=== PATIENT | male | born 1945 | race Caucasian/White ===

== ENCOUNTER → 2020-07-03 | Outpatient (CLI) | payer MEDICARE | LOC: M.WC 07-01 09:00 | PROVIDERS: ATTEND Emergency Medicine Undersea and Hyperbaric Medicine | DX: I87.332 Chronic venous hypertension (idiopathic) with ulcer and inflammation of left lower extremity (principal); L97.822 Non-pressure chronic ulcer of other part of left lower leg with fat layer exposed; I87.311 Chronic venous hypertension (idiopathic) with ulcer of right lower extremity; L97.812 Non-pressure chronic ulcer of other part of right lower leg with fat layer exposed; I89.0 Lymphedema, not elsewhere classified; H26.9 Unspecified cataract; J45.909 Unspecified asthma, uncomplicated ==

== ENCOUNTER → 2020-07-10 | Outpatient (CLI) | payer MEDICARE | LOC: M.WC 10:00 | PROVIDERS: ATTEND Family Medicine | DX: I87.332 Chronic venous hypertension (idiopathic) with ulcer and inflammation of left lower extremity (principal); L97.822 Non-pressure chronic ulcer of other part of left lower leg with fat layer exposed; I87.311 Chronic venous hypertension (idiopathic) with ulcer of right lower extremity; L97.812 Non-pressure chronic ulcer of other part of right lower leg with fat layer exposed; I89.0 Lymphedema, not elsewhere classified; H26.9 Unspecified cataract; J45.909 Unspecified asthma, uncomplicated ==

== ENCOUNTER → 2020-07-24 | Outpatient (CLI) | payer MEDICARE | LOC: M.WC 10:11 | PROVIDERS: ATTEND Family Medicine | DX: I87.332 Chronic venous hypertension (idiopathic) with ulcer and inflammation of left lower extremity (principal); L97.822 Non-pressure chronic ulcer of other part of left lower leg with fat layer exposed; I87.311 Chronic venous hypertension (idiopathic) with ulcer of right lower extremity; L97.812 Non-pressure chronic ulcer of other part of right lower leg with fat layer exposed; I89.0 Lymphedema, not elsewhere classified; H26.9 Unspecified cataract; J45.909 Unspecified asthma, uncomplicated ==

== ENCOUNTER → 2020-08-01 | Outpatient (CLI) | payer MEDICARE ==
[~2020-08-01] MED LIST: COLACE100 MG PO; DULCOLAX STOOL100 M1 PO; FLOMAX0.4 MG PO; FUROSEMIDE 40 M40 MG PO; HYDROCHLOROTHIA25 M2 PO; LISINOPRIL20 MG PO; MELATONIN10 M3 PO; OXYBUTYNIN 5 MG5 M2 PO; POTASSIUM20 PO; PROSCAR 5MG TABL5 M1 PO; SIMVASTATIN80 MG PO; TRAMADOL 50 MG50 MG PO; TYLENOL325 M1 PO
== END ==
LOC: M.WC 10:00
PROVIDERS: ATTEND Family Medicine
DX: I87.332 Chronic venous hypertension (idiopathic) with ulcer and inflammation of left lower extremity (principal); L97.822 Non-pressure chronic ulcer of other part of left lower leg with fat layer exposed; I87.311 Chronic venous hypertension (idiopathic) with ulcer of right lower extremity; L97.812 Non-pressure chronic ulcer of other part of right lower leg with fat layer exposed; I89.0 Lymphedema, not elsewhere classified; H26.9 Unspecified cataract; J45.909 Unspecified asthma, uncomplicated

== ENCOUNTER 2020-08-04 13:25 | Inpatient (IN) | payer MEDICARE ==
[~2020-08-04] VITALS: Ht 175.3 cm; Wt 90.7 kg
--- NOTE | ~2020-08-04 | PROC ---
[address] [address] PROCEDURE REPORT Name: CATALINA ARCHIBALD Room: [address] IN .R.#: [id number] Admission: 08/04/20 Attend Phys: Иван Shoemaker MD Discharge: 08/06/20 Date of : 47 Report #: [id number] THIS REPORT FOR: cc: Rajiv Guadarrama Adam J DO ~ [facility],Medical Records Staff For GI report, please see the Provation report in Perceptive 7 content. By: [id number] Records Staff [facility] /LORENE
[2020-08-04 14:51] LABS: MCH 21.9 pg (26.0-34.0); MCHC 31.1 g/dL (28.0-37.0); MCV 70.3 fL (80.0-100.0); RBC 2.53 mil/uL (4.50-6.00); RDW-CV 18.5 % (10.5-14.5); WBC 7.2 thou/uL (4.0-11.0)
[2020-08-04 14:53] LABS: HEMATOCRIT 17.8 % (42.0-52.0); HEMOGLOBIN 5.5 gm/dL (14.0-18.0)
[2020-08-04 15:05] LABS: CALCIUM 9.3 mg/dL (8.5-10.1); POTASSIUM 3.8 mmol/L (3.5-5.1)
[2020-08-04 15:07] LABS: INR 1.1; PROTIME 12.1 Seconds (9.20-11.50)
[2020-08-04 15:10] LABS: ALBUMIN 2.2 g/dL (3.4-5.0); TOTAL BILIRUBIN 0.2 mg/dL (<0.1-1.0); TOTAL PROTEIN 7.4 g/dL (6.4-8.2)
[2020-08-04 15:13] VITALS: BP 108/65
[2020-08-04] MEDS ORDERED: FUROSEMIDE 40 M40 MG PO (15:21)
[2020-08-04] MEDS ORDERED: PROSCAR 5MG TABL5 M1 PO (15:21)
[2020-08-04] MEDS ORDERED: HYDROCHLOROTHIA25 M2 PO (15:22)
[2020-08-04] MEDS ORDERED: LISINOPRIL20 MG PO (15:23)
[2020-08-04] MEDS ORDERED: OXYBUTYNIN 5 MG5 M2 PO (15:23)
[2020-08-04] MEDS ORDERED: POTASSIUM20 PO (15:24)
[2020-08-04] MEDS ORDERED: SIMVASTATIN80 MG PO (15:25)
[2020-08-04] MEDS ORDERED: FLOMAX0.4 MG PO (15:25)
[2020-08-04] MEDS ORDERED: TRAMADOL 50 MG50 MG PO (15:26)
[2020-08-04] MEDS ORDERED: COLACE100 MG PO (15:27)
[2020-08-04] MEDS ORDERED: DULCOLAX STOOL100 M1 PO (15:28)
[2020-08-04] MEDS ORDERED: MELATONIN10 M3 PO (15:29)
[2020-08-04] MEDS ORDERED: TYLENOL325 M1 PO (15:29)
--- NOTE | 2020-08-04 16:21 | EKG ---
[place] [address] ELECTROCARDIOGRAM REPORT Name: CATALINA ARCHIBALD Room: [address] ADM IN ..#: [id number] Admission: 08/04/20 Attend Phys: Иван Shoemaker, Discharge: Date of : 47 Date of Service: 08/04/20 1502 Report #: [id number] THIS REPORT FOR: //name// [facility] Test Date: 2020-08-04 Test Time: 15:02:09 Pat Name: CATALINA ARCHIBALD Department: Room: [address] Gender: [facility] Tutor: SEGUNDO : 1945 Requested By: Иван Shoemaker Order Number: [id number] MD: Calos Cline Measurements Intervals Dixon Rate: 72 P: 39 WY: 181 QRS: 29 QRSD: 91 T: 32 QT: 405 QTc: 444 Interpretive Statements Sinus rhythm Borderline low voltage, extremity leads Consider RVH or posterior infarct No previous ECG available for comparison Electronically Signed On 08-04-2020 16:21:00 WIRE SPOOLER by Calos Cline [email or web address] <ELECTRONICALLY SIGNED> By: Calos Cline MD, [facility] 08/04/20 1621 1502 1502 Calos Cline MD, [facility] /EPI
--- NOTE | 2020-08-04 16:36 | NUR ---
PT ADMITTED. HISTORY AND ASSESSMENT COMPLETE. PT TO RECIEVE 1U PRBC. HGB 5.5, HCT 17.8. PT UP WITH ASSIST X1 AND WALKER TO BSC.
[2020-08-04 16:40] VITALS: BP 108/60
[2020-08-04 17:32] VITALS: BP 110/67; BP 132/64; BP 141/74
[2020-08-04 21:03] LABS: HEMATOCRIT 19.1 % (42.0-52.0); HEMOGLOBIN 6.2 gm/dL (14.0-18.0)
[2020-08-04 22:56] VITALS: BP 107/55; BP 113/65; BP 117/60
[2020-08-05 01:16] LABS: HEMATOCRIT 21.6 % (42.0-52.0); HEMOGLOBIN 7.1 gm/dL (14.0-18.0)
[2020-08-05 01:17] LABS: ABSOLUTE EOSINOPHILS 0.2 thou/uL (0.0-0.7); ABSOLUTE LYMPHOCYTES 1.4 thou/uL (0.8-5.3); ABSOLUTE MONOCYTES 0.8 thou/uL (0.0-1.2); ABSOLUTE NEUTROPHILS 5.1 thou/uL (1.6-8.1); BASOPHILS 0.5 %; EOSINOPHILS 2.3 %; HEMATOCRIT 21.7 % (42.0-52.0); LYMPHOCYTES 18.3 %; MCH 23.8 pg (26.0-34.0); MCHC 32.2 g/dL (28.0-37.0); MCV 73.7 fL (80.0-100.0); MONOCYTES 10.1 %; MPV 6.5 fl. (7.2-11.1); NUCLEATED RBCS 0 /100WBC; PLATELET COUNT* 302 thou/uL (150-400); POLYS 68.8 %; RBC 2.95 mil/uL (4.50-6.00); RDW-CV 20.9 % (10.5-14.5); WBC 7.5 thou/uL (4.0-11.0)
[2020-08-05 01:20] LABS: CALCIUM 9.2 mg/dL (8.5-10.1); CREATININE 2.7 mg/dL (0.6-1.3); POTASSIUM 4.1 mmol/L (3.5-5.1)
[2020-08-05 08:00] VITALS: BP 136/72
--- NOTE | 2020-08-05 14:17 | NUR ---
Pt is A&O. Resides at home with . Independent. Pt has a walker and cane that he can use if needed. Pt is current with [facility] and plans to resume at [facility]. Pt is current at [facility] wound center. No hx of SNF. Pt to have EGD/colon today. Nephro to see. Urine and blood work up pending. Goal is home with resumption of HH at [facility].
--- NOTE | 2020-08-05 15:38 | NUR ---
WOUND NURSE: PATIENT SEEN TO ADDRESS VENOUS LEG ULCERS ON BLE. THESE ARE TOO NUMEROUS TO COUNT, ALL REMAIN SMALL, CIRCUMSCRIBED, PINK TISSUE IN EACH WOUND BED, MODERATE AMOUNT OF SEROUS DRAINAGE. GIRTH MEASUREMENTS OF BLE FOLLOWS: LEFT: FOREFOOT: 24; ANKLE: 21; CALF 31 CM. RIGHT: FOREFOOT: 24; ANKLE: 22.5; CALF: 31 CM. SKIN IS WARM AND PINK, PEDAL PULSES PRESENT, CAPILLARY REFILL <3 SECONDS. TREATED FOLLOWS: CLEANSED WITH SOAP AND WATER, RINSED, THEN PATTED DRY. APPLIED MOISTURIZER TO INTACT SKIN TOES TO KNEE. APPLIED XEROFORM GAUZE UNDER ABD'S TO LESIONS, THEN WRAPPED WITH MEDLINE 3 LAYER COMPRESSION WRAPS. CURRENTLY PATIENT NEEDS ASSISTANCE WITH REPOSITIONING AND REMAINS ON STANDARD HOSPITAL BED. PATIENT INSTRUCTED ON ELEVATION TO PROMOTE HEALING WITH GOOD UNDERSTANDING ACHIEVED. PATIENT HAD ALSO PREVIOUSLY BEEN INSTRUCTED IN [facility]CC HERE AT [facility]. PATIENT STATES HE UNDERSTANDS.
[2020-08-05 16:23] VITALS: BP 109/69
[2020-08-05 20:14] LABS: CALCIUM 9.2 mg/dL (8.5-10.1); CREATININE 2.3 mg/dL (0.6-1.3); POTASSIUM 4.1 mmol/L (3.5-5.1)
[2020-08-05 21:19] LABS: URINE BILIRUBIN NEGATIVE (Negative); URINE BLOOD 2+ (Negative); URINE CLARITY CLEAR; URINE COLOR YELLOW; URINE GLUCOSE-RANDOM NEGATIVE (Negative); URINE KETONES NEGATIVE (Negative); URINE LEUKOCYTES-REFLEX 1+ (Negative); URINE NITRITE-REFLEX NEGATIVE (Negative); URINE PROTEIN 1+ (Negative); URINE UROBILINOGEN 0.2 E.U./dl (0.2-1.0)
[2020-08-05 21:43] LABS: FINE GRANULAR CASTS 0-3 Few /LPF (None Seen); SQUAMOUS 4-10 Moderate /LPF (0-3)
[2020-08-05 21:44] LABS: URINE RBC 3-10 Few /HPF (0-2)
[2020-08-05 21:45] LABS: CRYSTALS None Seen /LPF (None Seen); WBC CLUMPS Few (None Seen)
[2020-08-05 23:58] VITALS: BP 99/56
[2020-08-06 04:08] VITALS: BP 126/67
[2020-08-06 04:16] LABS: ABSOLUTE EOSINOPHILS 0.1 thou/uL (0.0-0.7); ABSOLUTE LYMPHOCYTES 1.1 thou/uL (0.8-5.3); ABSOLUTE MONOCYTES 0.9 thou/uL (0.0-1.2); BASOPHILS 0.3 %; EOSINOPHILS 0.8 %; HEMOGLOBIN 7.5 gm/dL (14.0-18.0); LYMPHOCYTES 11.8 %; MCH 23.9 pg (26.0-34.0); MCHC 32.7 g/dL (28.0-37.0); MONOCYTES 10.1 %; MPV 6.8 fl. (7.2-11.1); NUCLEATED RBCS 0 /100WBC; PLATELET COUNT* 353 thou/uL (150-400); RBC 3.15 mil/uL (4.50-6.00); RDW-CV 21.6 % (10.5-14.5); WBC 9.1 thou/uL (4.0-11.0)
[2020-08-06 04:33] LABS: ALBUMIN 2.2 g/dL (3.4-5.0); CALCIUM 9.5 mg/dL (8.5-10.1); CREATININE 2.2 mg/dL (0.6-1.3); POTASSIUM 3.8 mmol/L (3.5-5.1); TOTAL BILIRUBIN 0.4 mg/dL (<0.1-1.0); TOTAL PROTEIN 7.9 g/dL (6.4-8.2)
[2020-08-06 06:47] LABS: HYPOCHROMASIA 1+; MICROCYTES 1+; PLATELET ESTIMATE ADEQUATE
[2020-08-06 06:48] LABS: ANISOCYTOSIS 1+; POIKILOCYTOSIS 1+
[2020-08-06 08:00] VITALS: BP 133/73
[2020-08-06] MEDS ORDERED: IRON325 M1 PO (10:16)
[2020-08-06 11:47] VITALS: BP 118/67
[2020-08-06 12:50] VITALS: BP 118/67
--- NOTE | 2020-08-06 12:53 | NUR ---
Pt discharging to home today, resumption orders faxed to [facility]. PT worked with Pt, recommending SNF, Pt and declined. CM updated HH of PT rec. in room and will transport
[2020-08-06 13:15] VITALS: BP 118/67
--- NOTE | 2020-08-06 13:54 | NUR ---
ASSUMED PT CARE AT 0730, PT AOX4, NO C/O PAIN OR SHORTNESS OF BREATH. PT WORKED W/ NEPHROLOGY TODAY AND DC ORDERS RECEIVED, THEY JUST WANT TO SEE PT A OUTPT F/U, INSTRUCTIONS GIVEN TO PT ON THIS. DC INSTRUCTIONS, CARE NOTES, SCRIPTS AND F/U APPTS GIVEN TO PT. PT COMMUNICATES UNDERSTANDING OF DC TEACHING. IV AND MIX TECHNICIAN REMOVED. PT DC'D BY WC W/ NURSING STAFF W/ ALL PAPERWORK AND PERSONAL BELONGINGS TO 'S VEHICLE AT APPROX 1356.
--- NOTE | 2020-08-07 08:34 | CON ---
[address] [address] CONSULTATION Name: CATALINA ARCHIBALD Room: [address] IN [facility]#: [id number] Admission: 08/04/20 Attend Phys: Иван Shoemaker MD Discharge: 08/06/20 Date of : 47 Report #: [id number] THIS REPORT FOR: cc: Rajiv Guadarrama Adam J DO ~ Vasudeva, Amita MD DATE OF SERVICE: 08/06/2020 NEPHROLOGY CONSULTATION CONSULTING PHYSICIAN: Иван Shoemaker MD REASON FOR NEPHROLOGY CONSULTATION: Acute kidney injury, elevated creatinine. REASON FOR ADMISSION: Severe anemia. HISTORY OF PRESENT ILLNESS: This is a 75-year-old male who was admitted from the surgical center because of severe symptomatic anemia. He was found to have a hemoglobin of 5.5 with no overt blood loss. He was admitted for elective endoscopy and colonoscopy and also received blood transfusion. We do not have a baseline creatinine on him. The patient notes not having any kidney problems in the past, but he does have issues with urinary incontinence, but he was found to have a creatinine of 3.0 on admission. HOME MEDICATIONS: Include lisinopril, potassium, Lasix as well as hydrochlorothiazide and he also takes Proscar and oxybutynin. His diuretics and lisinopril were held and his creatinine has come down to 2.2. I also gave him some IV fluids yesterday, which could help with his kidney function as well. He also has been taking naproxen 2 tablets a day for the past 8 to 10 years. He did have endoscopy, colonoscopy performed yesterday and I do not see the reports in the computer, but as per nursing, he had a stomach biopsy done as well as 2 colon polyps removed. Hemoglobin is better at 7.5 today. He is feeling okay. No complaints right now. No history of any kidney stones. ALLERGIES: No known allergies. REVIEW OF SYSTEMS: As mentioned in history of present illness, otherwise 10-point review of systems are negative. PAST MEDICAL AND SURGICAL HISTORY: Which includes hypertension, prostate cancer, BPH, venous insufficiency. FAMILY HISTORY: No history of any [place] [address] CONSULTATION Name: CATALINA ARCHIBALD Tacho Room: [address]#: [id number] Admission: 08/04/20 Attend Phys: Иван Shoemaker MD Discharge: 08/06/20 Date of : 47 Report #: [id number] SOCIAL HISTORY: He does not smoke, drink alcohol or use illicit drugs. Lives at home with his family. MEDICATIONS AT HOME: Which include furosemide 40 mg a day, hydrochlorothiazide 25 mg a day, lisinopril 20 mg a day, potassium chloride 20 mEq a day, simvastatin, tamsulosin, tramadol, acetaminophen, docusate, oxybutynin, finasteride, melatonin. PHYSICAL EXAMINATION: VITAL SIGNS: His blood pressure is 126/67, respiratory rate is 18, pulse rate is 79, temperature is 36.9, pulse ox 97%. He is on room air. GENERAL: He is awake, alert, oriented x 3. HEAD AND EYES: Atraumatic and normocephalic. Conjunctivae normal. EARS, NOSE, AND THROAT: Normal ears and nose. Mucous membranes are moist. NECK: There is no JVD. CHEST: Bilaterally clear to auscultation. No crackles or wheezing present. CARDIOVASCULAR SYSTEM: S1, S2 normal. No murmurs. ABDOMEN: Soft, nondistended, nontender. Bowel sounds are present. EXTREMITIES: Lower extremities are wrapped. There is no upper thigh edema. NEUROLOGICAL FUNCTION: Grossly internal. PSYCHIATRIC: Mood and affect seem to be normal. LABORATORY DATA: Hemoglobin 7.5, WBC 9.1, platelet count is 253. Sodium is 139, potassium was normal at 3.8, creatinine 2.2, which is better from 3.0 when he first came in. IMAGING: Chest x-ray was reviewed. ASSESSMENT: 1. Elevated creatinine, likely acute kidney injury. Baseline creatinine is not known and this is in the setting of chronic naproxen use, lisinopril, Lasix, hydrochlorothiazide use and volume depletion and severe anemia. Renal ultrasound yet to be checked. Urinalysis had 3-10 rbc's per high power field with 1+ protein, but looked like a contaminated specimen. Urinary incontinence could have led to a contaminated specimen. 2. Severe anemia, baseline hemoglobin is not known. Gastroenterology is following. Has severe iron deficiency, which is not related to his kidneys. His iron saturation is 3%. Had endoscopy, colonoscopy on 08/05/2020. 3. Hypertension. Blood pressure is controlled. Currently off of lisinopril if blood pressure is running slightly towards the lower side. 4. Chronic NSAID use. 5. Prostate cancer, also has urinary incontinence. 6. Chronic venous insufficiency [place] [address] CONSULTATION Name: CATALINA ARCHIBALD Room: [address] IN [facility]#: [id number] Admission: 08/04/20 Attend Phys: Иван Shoemaker MD Discharge: 08/06/20 Date of : 47 Report #: [id number] PLAN: 1. Continue his IV fluids for 1 more day, but if primary team wants to discharge him today, it will be okay from nephrology standpoint. I will be holding his Lasix, hydrochlorothiazide, potassium, lisinopril even when he goes home. Also please have him avoid all NSAIDs. If he ends up going home today, he can follow up with us in 3-4 weeks after discharge. I gave him my card. 2. Renal ultrasound can be done here in the hospital and if not, we can get it done as outpatient, especially if his creatinine does not improve. 3. Management of anemia is as per GI. Thank you for this consultation. Try to check a postvoid residual if we can. Discussed with the patient's nurse and discussed with the patient as well. <ELECTRONICALLY SIGNED> By: Natacha Severino MD 08/07/20 0834 0813 0828Natacha Severino MD /nt
[2020-08-07 14:09] LABS: URINE PROTEIN (MG/DL) 68.1 mg/dL (Not Estab.)
[2020-08-07 14:09] LABS: GLOBULIN TOTAL 4.5 g/dL (2.2-3.9); M-SPIKE Not Observed g/dL (Not Observed)
--- NOTE | 2020-08-08 13:08 | PATH ---
[address] [address] PATHOLOGY RPT PROCEDURE Name: DRAGANJONATHAN Room: [address] IN [facility]#: [id number] Admission: 08/04/20 Date of : 47 Discharge: 08/06/20 Report #: [id number] Path Case #: [id number] [facility] Accession Number: [id number] . 01 Material submitted: . PART A: duodenum - DUODENAL BIOPSY PART B: colon - TRANSVERSE COLON POLYPS X2. Modifiers: transverse PART C: colon - SIGMOID COLON POLYP . 01 Clinician provided ICD-10: D64.9 N17.0 . 01 Clinical history: . A:R/O IRON DEFICIENCY ANEMIA/CELIAC B:COLD SNARE C:HOT SNARE . 02 Diagnosis: A. Duodenal biopsy: - Normal small intestinal/duodenal mucosa. . B. Polyps x2 transverse colon: - Two tubular adenomas, negative for high-grade dysplasia. . C. Polyp sigmoid colon: - Tubular adenoma, negative for high-grade dysplasia. (LORIE:germán; 08/08/2020) QMS 08/08/2020 1129 Local . 02 Electronically signed: . Fortunato Flannery MD, Pathologist NPI- [id number] . 01 Gross description: . A. Received in formalin labeled "Jonathan Archibald, duodenal biopsy rule out iron deficiency anemia" are multiple leslie-brown soft tissue fragments measuring in aggregate 1.0 x 0.5 x 0.1 cm. The specimen is submitted entirely in A1. . B. Received in formalin labeled "Jonathan Archibald, polyps x2 transverse colon" are two leslie-brown soft tissue fragments measuring in aggregate 0.5 x 0.5 x 0.2 cm. The specimen is submitted entirely in B1. . C. Received in formalin labeled "Jonathan Archibald, polyp sigmoid colon hot snare" is a fragment of leslie-brown soft tissue measuring 0.8 x 0.6 x 0.3 cm. The margin is inked and the specimen is bisected and submitted in C1. ([facility]; 08/07/2020) [place] [address] PATHOLOGY RPT PROCEDURE Name: JONATHAN ARCHIBALD Tacho Room: [address] IN M.R.#: [id number] Admission: 08/04/20 Date of : 47 Discharge: 08/06/20 Report #: [id number] Path Case #: [id number] SYC/SYC 08/07/2020 1349 Local . 02 Pathologist provided ICD-10: D12.3, D12.5, D64.9 . 02 CPT . 937503, 842710, 141119 Specimen Comment: A courtesy copy of this report has been sent to [phone], [phone] Specimen Comment: [phone] Specimen Comment: Report sent to / DR RAYMOND Performed at: [address], [place], [place] [id number] MD Noble Barney MD Phone: [phone] Performed at: 02 [facility] [address], [place], [place] [id number] MD Fortunato Flannery MD Phone: [phone]
== END 2020-08-06 13:57 | disposition home health service (06) | DRG 811 ==
LOC: M.2W 13:25
PROVIDERS: Internal Medicine; ADMIT Internal Medicine; ATTEND Internal Medicine
PROC: 30233N1 Transfusion of Nonautologous Red Blood Cells into Peripheral Vein, Percutaneous Approach (ICD-10-PCS; 2020-08-04)
PROC: 0DBN8ZZ Excision of Sigmoid Colon, Via Natural or Artificial Opening Endoscopic (ICD-10-PCS; principal; 2020-08-05)
PROC: 0DB98ZX Excision of Duodenum, Via Natural or Artificial Opening Endoscopic, Diagnostic (ICD-10-PCS; principal; 2020-08-05)
PROC: 0DBL8ZZ Excision of Transverse Colon, Via Natural or Artificial Opening Endoscopic (ICD-10-PCS; principal; 2020-08-05)
DX: D50.9 Iron deficiency anemia, unspecified (principal); N17.0 Acute kidney failure with tubular necrosis; E43 Unspecified severe protein-calorie malnutrition; N40.1 Benign prostatic hyperplasia with lower urinary tract symptoms; N39.498 Other specified urinary incontinence; K21.00 Gastro-esophageal reflux disease with esophagitis, without bleeding; K44.9 Diaphragmatic hernia without obstruction or gangrene; K64.8 Other hemorrhoids; K57.30 Diverticulosis of large intestine without perforation or abscess without bleeding; D12.3 Benign neoplasm of transverse colon; D12.5 Benign neoplasm of sigmoid colon; Z20.822 Contact with and (suspected) exposure to COVID-19; I87.2 Venous insufficiency (chronic) (peripheral); I73.9 Peripheral vascular disease, unspecified; I12.9 Hypertensive chronic kidney disease with stage 1 through stage 4 chronic kidney disease, or unspecified chronic kidney disease; M19.90 Unspecified osteoarthritis, unspecified site; Z68.29 Body mass index [BMI] 29.0-29.9, adult; Z79.899 Other long term (current) drug therapy; Z85.46 Personal history of malignant neoplasm of prostate; Z79.1 Long term (current) use of non-steroidal anti-inflammatories (NSAID)

== ENCOUNTER → 2020-08-04 | Outpatient (CLI) | payer MEDICARE ==
[~2020-08-04] MED LIST changes: +IRON325 M1 PO
[2020-08-04 12:23] LABS: ABSOLUTE EOSINOPHILS 0.2 thou/uL (0.0-0.7); ABSOLUTE LYMPHOCYTES 1.4 thou/uL (0.8-5.3); ABSOLUTE MONOCYTES 0.7 thou/uL (0.0-1.2); ABSOLUTE NEUTROPHILS 6.5 thou/uL (1.6-8.1); BASOPHILS 0.5 %; LYMPHOCYTES 15.4 %; MCH 22.2 pg (26.0-34.0); MCHC 31.5 g/dL (28.0-37.0); MCV 70.5 fL (80.0-100.0); MONOCYTES 7.8 %; NUCLEATED RBCS 0 /100WBC; PLATELET COUNT* 353 thou/uL (150-400); POLYS 74.3 %; RBC 2.84 mil/uL (4.50-6.00); RDW-CV 18.9 % (10.5-14.5); WBC 8.8 thou/uL (4.0-11.0)
[2020-08-04 12:27] LABS: HEMOGLOBIN 6.3 gm/dL (14.0-18.0)
[2020-08-04 12:28] LABS: POTASSIUM 4.1 mmol/L (3.5-5.1)
[2020-08-04 12:44] LABS: ANISOCYTOSIS 2+; PLATELET ESTIMATE ADEQUATE
== END ==
LOC: M.LAB 05:18
PROVIDERS: ATTEND Anesthesiology
DX: E87.6 Hypokalemia (principal)

== ENCOUNTER 2020-08-12 10:37 | Inpatient (IN) | payer MEDICARE ==
[~2020-08-12] VITALS: Ht 172.7 cm; Wt 90.2 kg
[2020-08-12 10:57] VITALS: BP 136/73
[2020-08-12 11:02] LABS: ABSOLUTE EOSINOPHILS 0.2 thou/uL (0.0-0.7); ABSOLUTE MONOCYTES 0.9 thou/uL (0.0-1.2); ABSOLUTE NEUTROPHILS 8.4 thou/uL (1.6-8.1); BASOPHILS 0.4 %; EOSINOPHILS 2.3 %; HEMATOCRIT 23.2 % (42.0-52.0); HEMOGLOBIN 7.5 gm/dL (14.0-18.0); LYMPHOCYTES 9.7 %; MCH 23.8 pg (26.0-34.0); MCHC 32.5 g/dL (28.0-37.0); MCV 73.2 fL (80.0-100.0); MONOCYTES 8.5 %; NUCLEATED RBCS 0 /100WBC; PLATELET COUNT* 515 thou/uL (150-400); POLYS 79.1 %; RBC 3.17 mil/uL (4.50-6.00); RDW-CV 22.1 % (10.5-14.5); WBC 10.6 thou/uL (4.0-11.0)
[2020-08-12 11:10] LABS: CALCIUM 9.1 mg/dL (8.5-10.1); CREATININE 1.5 mg/dL (0.6-1.3); POTASSIUM 3.5 mmol/L (3.5-5.1)
[2020-08-12 11:12] LABS: APTT 33.8 Seconds (25.0-31.3); INR 1.2; PROTIME 13.1 Seconds (9.20-11.50)
[2020-08-12 11:22] LABS: ALBUMIN 1.7 g/dL (3.4-5.0); TOTAL BILIRUBIN 0.3 mg/dL (<0.1-1.0); TOTAL PROTEIN 8.1 g/dL (6.4-8.2)
[2020-08-12 11:57] LABS: URINE BILIRUBIN NEGATIVE (Negative); URINE BLOOD 2+ (Negative); URINE CLARITY CLEAR; URINE COLOR YELLOW; URINE GLUCOSE-RANDOM NEGATIVE (Negative); URINE KETONES NEGATIVE (Negative); URINE LEUKOCYTES-REFLEX NEGATIVE (Negative); URINE NITRITE-REFLEX NEGATIVE (Negative); URINE PROTEIN 2+ (Negative); URINE SPECIFIC GRAVITY 1.025 (1.005-1.030); URINE UROBILINOGEN 0.2 E.U./dl (0.2-1.0)
[2020-08-12 12:05] LABS: BACTERIA-REFLEX 1-9 Few /HPF (None Seen); CASTS None Seen /LPF (None Seen); CRYSTALS None Seen /LPF (None Seen); SQUAMOUS 0-3 Few /LPF (0-3); URINE RBC 0-2 Rare /HPF (0-2); URINE WBC-REFLEX 0-5 Rare /HPF (0-5)
--- NOTE | 2020-08-12 14:22 | EKG ---
[place] [address] ELECTROCARDIOGRAM REPORT Name: CATALINA ARCHIBALD Room: [place] [address] ADM IN [facility]#: [id number] Admission: 08/12/20 Attend Phys: Иван Shoemaker, Discharge: Date of : 47 Date of Service: 08/12/20 1055 Report #: [id number] THIS REPORT FOR: //name// [facility] ED Test Date: 2020-08-12 Test Time: 10:55:01 Pat Name: CATALINA ARCHIBALD Department: Room: [facility] Gender: M Temperature Control Inspector: RYAN : 1945 Requested By: Trung Lares Order Number: [id number] MD: Casa Magdaleno Measurements Intervals Tarkio Rate: 72 P: 39 RI: 60 QRS: 36 QRSD: 93 T: 36 QT: 419 QTc: 459 Interpretive Statements Sinus rhythm Short RI interval Abnormal R-wave progression, early transition Compared to ECG 08/04/2020 15:02:09 no change Electronically Signed On 08-12-2020 14:22:04 CLERICAL ASSOCIATE by Casa Magdaleno [email or web address] <ELECTRONICALLY SIGNED> By: Casa Magdaleno MD, [facility] 08/12/20 1422 1055 1055 Casa Magdaleno MD, [facility] /EPI
[2020-08-12 20:08] VITALS: BP 157/88
[2020-08-12 20:12] VITALS: BP 146/69
[2020-08-13 04:31] LABS: ABSOLUTE EOSINOPHILS 0.3 thou/uL (0.0-0.7); ABSOLUTE LYMPHOCYTES 0.9 thou/uL (0.8-5.3); ABSOLUTE MONOCYTES 0.8 thou/uL (0.0-1.2); ABSOLUTE NEUTROPHILS 7.6 thou/uL (1.6-8.1); BASOPHILS 0.4 %; HEMATOCRIT 20.7 % (42.0-52.0); LYMPHOCYTES 9.6 %; MCH 23.4 pg (26.0-34.0); MCHC 31.8 g/dL (28.0-37.0); MCV 73.6 fL (80.0-100.0); MONOCYTES 7.8 %; MPV 6.4 fl. (7.2-11.1); NUCLEATED RBCS 0 /100WBC; PLATELET COUNT* 495 thou/uL (150-400); POLYS 79.2 %; RBC 2.81 mil/uL (4.50-6.00); RDW-CV 22.8 % (10.5-14.5); WBC 9.6 thou/uL (4.0-11.0)
[2020-08-13 04:58] LABS: CALCIUM 9.2 mg/dL (8.5-10.1); CREATININE 1.4 mg/dL (0.6-1.3); POTASSIUM 3.4 mmol/L (3.5-5.1)
[2020-08-13 04:59] LABS: HEMOGLOBIN 6.6 gm/dL (14.0-18.0)
[2020-08-13 07:49] VITALS: BP 130/63; BP 130/65; BP 133/70; BP 134/74; BP 139/78
[2020-08-13 12:03] LABS: HEMATOCRIT 24.7 % (42.0-52.0); HEMOGLOBIN 7.8 gm/dL (14.0-18.0)
[2020-08-13 16:00] VITALS: BP 130/72
[2020-08-13 19:49] VITALS: BP 135/72
[2020-08-14] VITALS: BP 120/71
[2020-08-14 04:16] LABS: CALCIUM 9.1 mg/dL (8.5-10.1); CREATININE 1.5 mg/dL (0.6-1.3); MAGNESIUM 2.1 mg/dL (1.8-2.4); POTASSIUM 3.5 mmol/L (3.5-5.1)
[2020-08-14 05:02] LABS: HEMATOCRIT 24.7 % (42.0-52.0); HEMOGLOBIN 7.8 gm/dL (14.0-18.0); MCH 23.8 pg (26.0-34.0); MCHC 31.5 g/dL (28.0-37.0); MCV 75.6 fL (80.0-100.0); MPV 6.6 fl. (7.2-11.1); RBC 3.26 mil/uL (4.50-6.00); RDW-CV 23.7 % (10.5-14.5); WBC 9.6 thou/uL (4.0-11.0)
[2020-08-14 08:10] VITALS: BP 142/78
[2020-08-14 17:27] VITALS: BP 114/67
[2020-08-14 20:30] VITALS: BP 146/81
[2020-08-15 04:51] LABS: HEMATOCRIT 23.3 % (42.0-52.0); HEMOGLOBIN 7.5 gm/dL (14.0-18.0)
[2020-08-15 08:26] VITALS: BP 145/77
[2020-08-15 12:27] LABS: URINE BILIRUBIN NEGATIVE (Negative); URINE BLOOD 2+ (Negative); URINE CLARITY CLEAR; URINE COLOR YELLOW; URINE GLUCOSE-RANDOM NEGATIVE (Negative); URINE KETONES NEGATIVE (Negative); URINE LEUKOCYTES-REFLEX NEGATIVE (Negative); URINE NITRITE-REFLEX NEGATIVE (Negative); URINE PROTEIN 2+ (Negative); URINE SPECIFIC GRAVITY 1.025 (1.005-1.030); URINE UROBILINOGEN 0.2 E.U./dl (0.2-1.0)
[2020-08-15 12:53] LABS: BACTERIA-REFLEX 1-9 Few /HPF (None Seen); CASTS None Seen /LPF (None Seen); SQUAMOUS 4-10 Moderate /LPF (0-3); URIC ACID CRYSTALS >10 Many /LPF (None Seen); URINE RBC 3-10 Few /HPF (0-2); URINE WBC-REFLEX 0-5 Rare /HPF (0-5)
[2020-08-15 13:39] VITALS: BP 159/87
[2020-08-15 14:23] LABS: INFLUENZA A ANTIGEN Negative (Negative); INFLUENZA B ANTIGEN Negative (Negative)
[2020-08-15 16:06] LABS: KAPPA FREE LIGHT CHAINS 103.9 mg/L (3.3-19.4); LAMBDA FREE LIGHT CHAINS 98.5 mg/L (5.7-26.3)
[2020-08-15 16:18] VITALS: BP 143/77
[2020-08-15 20:15] VITALS: BP 139/72
[2020-08-16 02:09] LABS: HEPATITIS B SURFACE AG Negative (Negative)
[2020-08-16 03:06] LABS: HIV-1/HIV-2 ANTIBODY Non Reactive (Non Reactive)
[2020-08-16 04:00] VITALS: BP 148/83
[2020-08-16 04:09] LABS: HEMATOCRIT 22.5 % (42.0-52.0); HEMOGLOBIN 7.4 gm/dL (14.0-18.0); MCH 24.6 pg (26.0-34.0); MCHC 32.9 g/dL (28.0-37.0); MCV 74.7 fL (80.0-100.0); MPV 6.5 fl. (7.2-11.1); RBC 3.01 mil/uL (4.50-6.00); RDW-CV 24.5 % (10.5-14.5); WBC 10.4 thou/uL (4.0-11.0)
[2020-08-16 04:29] LABS: ALBUMIN 1.4 g/dL (3.4-5.0); CALCIUM 9.6 mg/dL (8.5-10.1); CREATININE 1.4 mg/dL (0.6-1.3); MAGNESIUM 1.9 mg/dL (1.8-2.4); POTASSIUM 3.6 mmol/L (3.5-5.1); TOTAL BILIRUBIN 0.3 mg/dL (<0.1-1.0); TOTAL PROTEIN 7.1 g/dL (6.4-8.2)
[2020-08-16 08:00] VITALS: BP 159/97
[2020-08-16 15:59] VITALS: BP 146/84
[2020-08-16 21:00] VITALS: BP 144/77
[2020-08-16 23:43] VITALS: BP 139/73
[2020-08-17 08:00] VITALS: BP 130/77
[2020-08-17 16:30] VITALS: BP 137/75
[2020-08-17 20:30] VITALS: BP 117/69
[2020-08-18 04:00] VITALS: BP 152/89
[2020-08-18 04:01] LABS: HEMOGLOBIN 7.4 gm/dL (14.0-18.0); MCH 23.2 pg (26.0-34.0); MCV 74.8 fL (80.0-100.0); MPV 6.5 fl. (7.2-11.1); RBC 3.2 mil/uL (4.50-6.00); RDW-CV 24.4 % (10.5-14.5); WBC 13.5 thou/uL (4.0-11.0)
[2020-08-18 04:16] LABS: CALCIUM 9.7 mg/dL (8.5-10.1); CREATININE 1.5 mg/dL (0.6-1.3); POTASSIUM 3.5 mmol/L (3.5-5.1)
[2020-08-18 08:00] VITALS: BP 143/79
[2020-08-18] MEDS ORDERED: TRAMADOL 50 MG50 MG PO (08:27)
[2020-08-18] MEDS ORDERED: PREDNISONE 10 M10 MG PO (08:27)
[2020-08-18 15:10] VITALS: BP 143/79
[2020-08-18 18:06] LABS: ANA INTERPRETATION Negative (())
== END 2020-08-18 16:00 | DRG 811 ==
LOC: M.ERS 10:37 → M.TBA-ER 13:45 → M.3W 13:45 → M.2W 08-13 18:17
PROVIDERS: Family Medicine; Internal Medicine; Internal Medicine Hematology & Oncology; ADMIT Internal Medicine; ATTEND Internal Medicine
PROC: 30233N1 Transfusion of Nonautologous Red Blood Cells into Peripheral Vein, Percutaneous Approach (ICD-10-PCS; principal; 2020-08-13)
DX: D50.9 Iron deficiency anemia, unspecified (principal); E43 Unspecified severe protein-calorie malnutrition; R53.2 Functional quadriplegia; N30.01 Acute cystitis with hematuria; I13.0 Hypertensive heart and chronic kidney disease with heart failure and stage 1 through stage 4 chronic kidney disease, or unspecified chronic kidney disease; E87.0 Hyperosmolality and hypernatremia; I87.8 Other specified disorders of veins; L89.899 Pressure ulcer of other site, unspecified stage; N18.30 Chronic kidney disease, stage 3 unspecified; E66.9 Obesity, unspecified; D89.2 Hypergammaglobulinemia, unspecified; M06.9 Rheumatoid arthritis, unspecified; N40.0 Benign prostatic hyperplasia without lower urinary tract symptoms; M19.90 Unspecified osteoarthritis, unspecified site; I50.9 Heart failure, unspecified; S61.200A Unspecified open wound of right index finger without damage to nail, initial encounter; X58.XXXA Exposure to other specified factors, initial encounter; Z20.822 Contact with and (suspected) exposure to COVID-19; Y93.89 Activity, other specified; Y92.89 Other specified places as the place of occurrence of the external cause; Y99.8 Other external cause status; Z85.46 Personal history of malignant neoplasm of prostate; Z79.899 Other long term (current) drug therapy; Z68.30 Body mass index [BMI] 30.0-30.9, adult

== ENCOUNTER 2020-10-27 18:37 | Inpatient (IN) | payer MEDICARE ==
[~2020-10-27] VITALS: Ht 175.3 cm; Wt 90.9 kg
[~2020-10-27 18:37] MED LIST changes: +PREDNISONE 10 M10 MG PO
[2020-10-27 18:39] VITALS: BP 156/86
[2020-10-27 19:12] LABS: ABSOLUTE BASOPHILS 0.1 thou/uL (0.0-0.2); ABSOLUTE EOSINOPHILS 0.1 thou/uL (0.0-0.7); ABSOLUTE NEUTROPHILS 11.8 thou/uL (1.6-8.1); BASOPHILS 0.4 %; EOSINOPHILS 0.7 %; HEMATOCRIT 32.4 % (42.0-52.0); HEMOGLOBIN 10.3 gm/dL (14.0-18.0); MCH 26.4 pg (26.0-34.0); MCHC 31.9 g/dL (28.0-37.0); MCV 82.7 fL (80.0-100.0); MONOCYTES 7.1 %; MPV 6.7 fl. (7.2-11.1); NUCLEATED RBCS 0 /100WBC; PLATELET COUNT* 215 thou/uL (150-400); POLYS 84.8 %; RBC 3.91 mil/uL (4.50-6.00); RDW-CV 22.6 % (10.5-14.5); WBC 13.9 thou/uL (4.0-11.0)
[2020-10-27 19:26] LABS: CALCIUM 8.9 mg/dL (8.5-10.1); CREATININE 1.6 mg/dL (0.6-1.3); POTASSIUM 3.4 mmol/L (3.5-5.1)
[2020-10-27 19:32] LABS: APTT 29.9 Seconds (25.0-31.3); INR 1.1; PROTIME 11.5 Seconds (9.20-11.50)
[2020-10-27 19:37] LABS: ALBUMIN 1.7 g/dL (3.4-5.0); TOTAL BILIRUBIN 0.3 mg/dL (<0.1-1.0)
[2020-10-28] VITALS (11 sets, daily range): BP systolic 119–160; BP diastolic 60–102
[2020-10-28 00:03] LABS: URINE BILIRUBIN NEGATIVE (Negative); URINE BLOOD 2+ (Negative); URINE CLARITY CLEAR; URINE COLOR YELLOW; URINE GLUCOSE-RANDOM NEGATIVE (Negative); URINE KETONES NEGATIVE (Negative); URINE LEUKOCYTES-REFLEX NEGATIVE (Negative); URINE NITRITE-REFLEX NEGATIVE (Negative); URINE PROTEIN 3+ (Negative); URINE SPECIFIC GRAVITY 1.025 (1.005-1.030); URINE UROBILINOGEN 0.2 E.U./dl (0.2-1.0)
[2020-10-28 01:05] LABS: COARSE GRANULAR CASTS 0-3 Few /LPF (None Seen); HYALINE CASTS 0-3 Few /LPF (None Seen); SQUAMOUS 4-10 Moderate /LPF (0-3)
[2020-10-28 01:06] LABS: BACTERIA-REFLEX 1-9 Few /HPF (None Seen); CRYSTALS None Seen /LPF (None Seen); URINE WBC-REFLEX 6-15 Few /HPF (0-5)
[2020-10-28 07:54] LABS: CALCIUM 8.6 mg/dL (8.5-10.1); CREATININE 1.4 mg/dL (0.6-1.3); POTASSIUM 3.2 mmol/L (3.5-5.1)
[2020-10-28 07:57] LABS: MAGNESIUM 1.9 mg/dL (1.8-2.4); PHOSPHORUS* 3.5 mg/dL (2.5-4.9)
--- NOTE | 2020-10-28 09:19 | EKG ---
[place] [address] ELECTROCARDIOGRAM REPORT Name: CATALINA ARCHIBALD Room: [address] ADM IN .R.#: [id number] Admission: 10/27/20 Attend Phys: Yue Perez, Discharge: Date of : 47 Date of Service: 10/27/201933 Report #: [id number] THIS REPORT FOR: //name// [facility] ED Test Date: 2020-10-27 Test Time: 19:34:38 Pat Name: CATALINA ARCHIBALD Department: Room: [facility] Gender: M Claims Investigator: [facility] : 1945 Requested By: Trung Lares Order Number: [id number] MD: Calos Cline Measurements Intervals Mercer Rate: 100 P: 15 CO: 151 QRS: 28 QRSD: 88 T: 46 QT: 341 QTc: 440 Interpretive Statements Sinus rhythm with borderline tachycardic rate with short burst of SVT and rare PVC Compared to ECG 08/12/2020 10:55:01 Sinus rate has increased, and short burst of SVT and PVC have appeared Short CO interval no longer present Electronically Signed On 10-28-2020 9:19:14 CDT by Calos Cline [email or web address] <ELECTRONICALLY SIGNED> By: Calos Cline MD, [facility] 10/28/20918 33 33 Calos Cline MD, [facility] /EPI
--- NOTE | 2020-10-28 13:37 | 2DMMODE ---
[place] [address] 2 D/M-MODE ECHOCARDIOGRAM Name: DRAGANCATALINA Tacho Room: [address] IN [facility]#: [id number] Admission: 10/27/20 Attend Phys: Yue Perez, Discharge: Date of : 47 Date of Service: 10/28/20 1337 Report #: [id number] THIS REPORT FOR: cc: Rajiv Guadarrama Adam J DO Liston, Michael J. MD [facility] ~ APPROVED REPORT Study performed: 10/28/2020 09:30:49 EXAM: Comprehensive 2D, Doppler, and color-flow Echocardiogram Patient Location: In-Patient Room #: [facility] Status: routine BSA: 2.07 HR: 103 bpm BP: 150/90 mmHg Rhythm: NSR Other Information Study Quality: Good Indications Dyspnea 2D Dimensions IVSd: 10.85 (7-11mm) LVOT Diam: 21.54 (18-24mm) LVDd: 47.49 mm PWd: 10.03 (7-11mm) Ascending Ao: 34.26 (22-36mm) LVDs: 31.84 (25-40mm) Aortic Root: 35.69 mm Volumes Left Atrial Volume (Systole) LA ESV Index: 29.30 mL/m2 Aortic Valve AoV Peak Ronny.: 1.52 m/s AO Peak Gr.: 9.26 mmHg LVOT Max P.42 mmHg AO Mean Gr.: 5.25 mmHg LVOT Mean P.92 mmHg LVOT Max V: 1.05 m/s AO V2 VTI: 26.50 cm LVOT Mean V: 0.62 m/s ROMAINE (VTI): 2.61 cm2 LVOT V1 VTI: 18.99 [place] [address] 2 D/M-MODE ECHOCARDIOGRAM Name: CATALINA ARCHIBALD Room: [address] IN [facility]#: [id number] Admission: 10/27/20 Attend Phys: Yue Perez, Discharge: Date of : 47 Date of Service: 10/28/20 1337 Report #: [id number] Mitral Valve E/A Ratio: 1.72 MV Decel. Time: 174.04 ms MV E Max Ronny.: 0.90 m/s MV PHT: 50.47 ms MVA (PHT): 4.36 cm2 TDI E/Lateral E': 6.43 E/Medial E': 6.00 Medial E' Ronny.: 0.15 m/s Lateral E' Ronny.: 0.14 m/s Pulmonary Valve PV Peak Ronny.: 1.03 m/s PV Peak Gr.: 4.22 mmHg Left Ventricle The left ventricle is normal size. There is normal LV segmental wall motion. There is normal left ventricular wall thickness. Left ventricular systolic function is normal. LVEF is 55-60%. Transmitral Doppler flow pattern suggests pseudonormalization. Right Ventricle The right ventricle is normal size. The right ventricular systolic function is normal. Atria The left atrium size is normal. The right atrium size is normal. Aortic Valve The aortic valve is normal in structure. No aortic regurgitation is present. There is no aortic valvular stenosis. Mitral Valve The mitral valve is normal in structure. Trace mitral regurgitation. No evidence of mitral valve stenosis. Tricuspid Valve The tricuspid valve is normal in structure. Unable to assess PA pressure. Trace tricuspid regurgitation. Pulmonic Valve The pulmonary valve is normal in structure. There is no pulmonic valvular regurgitation[place] [address] 2 D/M-MODE ECHOCARDIOGRAM Name: CATALINA ARCHIBALD Room: [address] IN [facility]#: [id number] Admission: 10/27/20 Attend Phys: Yue Perez, Discharge: Date of : 47 Date of Service: 10/28/20 1337 Report #: [id number] The aortic root is normal in size. IVC is normal in size and collapses >50% with inspiration. Pericardium There is no pericardial effusion. <Conclusion> The left ventricle is normal size. There is normal left ventricular wall thickness. Left ventricular systolic function is normal. LVEF is 55-60%. Transmitral Doppler flow pattern suggests pseudonormalization. There is normal LV segmental wall motion. Trace mitral regurgitation. Trace tricuspid regurgitation. IVC is normal in size and collapses >50% with inspiration. <ELECTRONICALLY SIGNED> By: Maicol Gibbs MD, FACC 10/28/20 1337 1337 1337 Maicol Gibbs MD, FACC /INF
[2020-10-28 22:06] LABS: GLYCOHEMOGLOBIN (HGB A1C) 5.6 % (4.8-5.6)
[2020-10-29] VITALS: BP 130/80
[2020-10-29 04:00] VITALS: BP 129/84
--- NOTE | 2020-10-29 09:08 | CON ---
[address] [address] CONSULTATION Name: CATALINA ARCHIBALD Room: [address] IN [facility].#: [id number] Admission: 10/27/20 Attend Phys: Yue Perez MD Discharge: Date of : 47 Report #: [id number] THIS REPORT FOR: cc: Rajiv Guadarrama Adam J DO Liston, Michael J. MD FAC ~ CARDIOLOGY CONSULTATION INDICATION: Arrhythmia. HISTORY OF PRESENT ILLNESS: The patient is a pleasant 75-year-old gentleman admitted to the hospital with recurrent weakness, fatigue, and failure to thrive. On admission, the patient was noted to have an irregular heart rhythm. EKG shows sinus rhythm with frequent premature atrial and occasional premature ventricular contractions. I do not see any evidence of atrial fibrillation. The patient denies any chest pain. He denies shortness of breath. He denies any history of heart disease. He is not having palpitations. The patient's primary issues have been mild chronic renal insufficiency and chronic anemia requiring transfusions in the past. On admission this time, he presented mostly with generalized pain and fatigue. PAST MEDICAL HISTORY: 1. Anemia. 2. Chronic renal insufficiency. 3. Dermatitis. 4. Chronic venous insufficiency. 5. Chronic lower extremity wounds. 6. Hypertension. 7. BPH. 8. History of prostate cancer. 9. History of right ankle fracture, remotely. FAMILY HISTORY: The patient reports history of heart disease in his mother and some of his siblings. SOCIAL HISTORY: The patient is a lifelong nonsmoker. He does not drink alcohol. REVIEW OF SYSTEMS: Positive for a nonproductive cough, anorexia, generalized fatigue and weakness, nonhealing wounds on the lower extremities, chronic joint pain, otherwise unremarkable. PHYSICAL EXAMINATION: VITAL SIGNS: Blood pressure 150/90, pulse is in the 90s and irregular. GENERAL: This is a pleasant elderly gentleman [place] [address] CONSULTATION Name: CATALINA ARCHIBALD Room: [address]#: [id number] Admission: 10/27/20 Attend Phys: Yue Perez MD Discharge: Date of : 47 Report #: [id number] HEENT: Head is normocephalic, atraumatic. Extraocular muscles intact. Mucous membranes are moist. NECK: Shows no jugular venous distention. CHEST: Reveals clear lung hanna without wheezes or rales. CARDIAC: Reveals an irregular rhythm. I do not appreciate gallop or murmur. ABDOMEN: Reveals normal bowel sounds. The abdomen is soft, nontender. EXTREMITIES: Shows both lower extremities to be wrapped. I do not appreciate significant edema at this time. LABORATORY DATA: A 12-lead EKG shows sinus rhythm with frequent premature atrial and occasional premature ventricular contractions. The same was noted on telemetry. I do not see any evidence of atrial fibrillation. Labs are reviewed. Sodium 149, potassium 3.2, chloride 109, bicarbonate 30, BUN 31, creatinine 1.4, serum glucose 88. LFTs essentially within normal limits. Albumin low at 1.7. Total protein 7.0. Troponin less than 0.06. White blood cell count 13.9, hemoglobin 10.3, platelet count 215,000. Chest x-ray shows no acute cardiopulmonary abnormality. IMPRESSION AND RECOMMENDATIONS: 1. Arrhythmia consisting mostly of PACs and PVCs. The patient is asymptomatic. We will obtain echocardiogram to evaluate underlying cardiac structure and function. I do not appreciate any significant electrolyte abnormalities contributing. He is not hypoxic. Further cardiac evaluation will be pending the results of the echocardiogram. 2. Hypertension. I am adding a moderate-dose beta-liliana to see if we can help suppress some of the premature atrial and premature ventricular contractions and smooth out his cardiac rhythm. Hopefully, this will improve his blood pressure as well. 3. Chronic anemia appears relatively stable compared to his previous numbers. 4. Chronic renal insufficiency appears stable. <ELECTRONICALLY SIGNED> By: Maicol Gibbs MD, FACC 10/29/20 0908 0920 1017Micclaudia Gibbs MD, FACC /nt
[2020-10-29 16:36] VITALS: BP 141/86
[2020-10-29 20:00] VITALS: BP 144/78
[2020-10-30] VITALS: BP 143/66
[2020-10-30 04:19] LABS: HEMATOCRIT 28.8 % (42.0-52.0); HEMOGLOBIN 9.2 gm/dL (14.0-18.0); MCH 26.5 pg (26.0-34.0); MCHC 31.8 g/dL (28.0-37.0); MCV 83.2 fL (80.0-100.0); MPV 7.1 fl. (7.2-11.1); RBC 3.46 mil/uL (4.50-6.00); RDW-CV 22.4 % (10.5-14.5); WBC 8.4 thou/uL (4.0-11.0)
[2020-10-30 04:50] LABS: ALBUMIN 1.5 g/dL (3.4-5.0); CALCIUM 8.7 mg/dL (8.5-10.1); CREATININE 1.2 mg/dL (0.6-1.3); MAGNESIUM 2.2 mg/dL (1.8-2.4); POTASSIUM 3.4 mmol/L (3.5-5.1); TOTAL BILIRUBIN 0.4 mg/dL (<0.1-1.0); TOTAL PROTEIN 6.6 g/dL (6.4-8.2)
[2020-10-30 08:00] VITALS: BP 127/80
[2020-10-30 12:00] VITALS: BP 141/76
[2020-10-30 16:00] VITALS: BP 153/84
[2020-10-30 19:20] VITALS: BP 143/77
[2020-10-30 23:59] VITALS: BP 180/95
[2020-10-31 04:00] VITALS: BP 166/81
[2020-10-31 14:01] VITALS: BP 136/87
[2020-10-31 20:00] VITALS: BP 173/101
[2020-10-31 23:30] VITALS: BP 156/94
[2020-11-01 04:10] VITALS: BP 145/102
[2020-11-01 04:24] LABS: HEMATOCRIT 28.7 % (42.0-52.0); HEMOGLOBIN 9.2 gm/dL (14.0-18.0); MCH 26.1 pg (26.0-34.0); MCV 81.5 fL (80.0-100.0); MPV 7.2 fl. (7.2-11.1); RBC 3.52 mil/uL (4.50-6.00); RDW-CV 21.4 % (10.5-14.5)
[2020-11-01 04:28] LABS: CALCIUM 9.9 mg/dL (8.5-10.1); CREATININE 1.1 mg/dL (0.6-1.3); POTASSIUM 3.9 mmol/L (3.5-5.1)
[2020-11-01 08:00] VITALS: BP 113/71
[2020-11-01 13:20] VITALS: BP 138/69
[2020-11-01 17:21] VITALS: BP 148/88
[2020-11-01 19:35] VITALS: BP 157/89
[2020-11-02] VITALS (7 sets, daily range): BP systolic 133–160; BP diastolic 77–96
[2020-11-02 04:23] LABS: CALCIUM 9.5 mg/dL (8.5-10.1); CREATININE 1.1 mg/dL (0.6-1.3); POTASSIUM 3.8 mmol/L (3.5-5.1)
[2020-11-02 04:52] LABS: HEMATOCRIT 28.8 % (42.0-52.0); HEMOGLOBIN 9.3 gm/dL (14.0-18.0); MCH 26.5 pg (26.0-34.0); MCHC 32.3 g/dL (28.0-37.0); MCV 82.1 fL (80.0-100.0); MPV 7.3 fl. (7.2-11.1); RBC 3.51 mil/uL (4.50-6.00); RDW-CV 21.3 % (10.5-14.5)
[2020-11-03 03:42] VITALS: BP 160/59
[2020-11-03 04:47] LABS: HEMATOCRIT 28.7 % (42.0-52.0); HEMOGLOBIN 9.1 gm/dL (14.0-18.0); MCH 26.1 pg (26.0-34.0); MCHC 31.8 g/dL (28.0-37.0); MCV 82.2 fL (80.0-100.0); MPV 7.1 fl. (7.2-11.1); RBC 3.5 mil/uL (4.50-6.00); RDW-CV 21.4 % (10.5-14.5); WBC 9.9 thou/uL (4.0-11.0)
[2020-11-03 04:52] LABS: CALCIUM 8.8 mg/dL (8.5-10.1); CREATININE 1.1 mg/dL (0.6-1.3); POTASSIUM 3.3 mmol/L (3.5-5.1)
[2020-11-03 08:15] VITALS: BP 162/98
[2020-11-03 11:50] VITALS: BP 153/86
[2020-11-03 16:05] VITALS: BP 158/99
[2020-11-03 20:00] VITALS: BP 129/64
[2020-11-04 00:41] VITALS: BP 142/92
[2020-11-04 04:35] VITALS: BP 136/90
[2020-11-04 04:47] LABS: HEMOGLOBIN 9.6 gm/dL (14.0-18.0); MCH 26.2 pg (26.0-34.0); MCV 81.8 fL (80.0-100.0); RBC 3.67 mil/uL (4.50-6.00); RDW-CV 20.8 % (10.5-14.5); WBC 11.5 thou/uL (4.0-11.0)
[2020-11-04 04:49] LABS: CALCIUM 8.1 mg/dL (8.5-10.1); POTASSIUM 3.8 mmol/L (3.5-5.1)
[2020-11-04 07:51] VITALS: BP 153/77
[2020-11-04 08:43] VITALS: BP 153/77
[2020-11-04] MEDS ORDERED: SEROQUEL 25 MG25 M1 PO (10:03)
[2020-11-04] MEDS ORDERED: TRAMADOL 50 MG50 MG PO (10:03)
[2020-11-04] MEDS ORDERED: METOPROLOL SUCC25 M1 PO (10:03)
[2020-11-04] MEDS ORDERED: PREDNISONE 20 M20 MG PO (10:08)
--- NOTE | 2020-11-05 22:06 | PATH ---
[address] [address] PATHOLOGY RPT PROCEDURE Name: DRAGANJONATHAN Room: [address] IN ..#: [id number] Admission: 10/27/20 Date of : 47 Discharge: 11/04/20 Report #: [id number] Path Case #: [id number] LCA Accession Number: [id number] . 01 Material submitted: . leg - LEFT LOWER LEG. Modifiers: left, lower . 01 Clinical history: . FUNCTIONAL QUADRIPLEGIA WITH NEW ONSET WEAKNESS . 02 Diagnosis: Two pieces of skin, left leg, biopsies: - Stasis related changes, with exuberant neutrophilic crust. There is no evidence of malignancy (see comment). (SAS:germán; 11/05/2020) S 11/05/2020 1652 Local . 02 Comment: Additional clinical history was obtained. This is a 75-year-old male that presented to the hospital with complaints of joint pain and fatigue. He has chronic lower extremity wounds which he states have been there chronically for several years. The patient's past medical history is significant for venous insufficiency as well as decubitus ulcers on his bilateral legs and buttocks. Clinical impressions included chronic venous stasis changes, rule out vasculitis. . Histologically, within the dermis, there are scattered vessels with surrounding lymphocytes, histiocytes, fibrosis and pigment laden dermal macrophages. Two special stains were performed, both with appropriate positive controls, which yielded the following results: . PAS fungus: Negative Iron: Positive within pigmented dermal macrophages . These histologic findings are consistent with chronic stasis changes. There is no evidence to support a primary leukocytoclastic vasculitis. . (SAS:germán; 11/05/2020) . Special stains: PAS fungus: Negative, iron: positive within pigmented dermal macrophages . 02 Electronically signed: . Ema Tee MD, Pathologist NPI- [id number] . 01 Gross description: . Received in formalin labeled "Jonathan Archibald, left leg" [place] [address] PATHOLOGY RPT PROCEDURE Name: JONATHAN ARCHIBALD Tacho Room: [address] IN ..#: [id number] Admission: 10/27/20 Date of : 47 Discharge: 11/04/20 Report #: [id number] Path Case #: [id number] fragments of leslie-white skin measuring 1.1 x 0.6 x 0.2 cm and 0.5 x 0.5 x 0.1 cm. The surfaces are leslie-brown and roughened with of a discrete lesion. The margins are inked and the fragments are bisected. The fragments are submitted in cassettes A1-A2 respectively. ([facility] [place]; 11/01/2020) [facility] 11/01/2020 0948 Local . 02 Microscopic: . . . 02 Pathologist provided ICD-10: R23.8 . 02 CPT . 535998, 422101, 330708 Specimen Comment: A courtesy copy of this report has been sent to [phone] Specimen Comment: Report sent to Performed at: [address], [place] [id number] MD Noble Barney MD Phone: [phone] Performed at: 02 [facility] [place] [address] [id number] MD Ema Tee MD Phone: [phone]
== END 2020-11-04 13:35 | DRG 640 ==
LOC: M.ERS 18:37 → M.ICU 22:02 → M.TBA-ER 22:02 → M.ICU 10-28 00:44 → M.2W 10-29 16:07
PROVIDERS: Family Medicine; Internal Medicine; ADMIT Internal Medicine; ATTEND Internal Medicine
PROC: 0HBLXZX Excision of Left Lower Leg Skin, External Approach, Diagnostic (ICD-10-PCS; principal; 2020-10-31)
DX: E87.6 Hypokalemia (principal); E43 Unspecified severe protein-calorie malnutrition; R53.2 Functional quadriplegia; N39.0 Urinary tract infection, site not specified; I47.1 Supraventricular tachycardia; I13.0 Hypertensive heart and chronic kidney disease with heart failure and stage 1 through stage 4 chronic kidney disease, or unspecified chronic kidney disease; L97.929 Non-pressure chronic ulcer of unspecified part of left lower leg with unspecified severity; L97.919 Non-pressure chronic ulcer of unspecified part of right lower leg with unspecified severity; I48.20 Chronic atrial fibrillation, unspecified; E87.0 Hyperosmolality and hypernatremia; M06.4 Inflammatory polyarthropathy; N18.30 Chronic kidney disease, stage 3 unspecified; D64.9 Anemia, unspecified; M10.9 Gout, unspecified; I87.8 Other specified disorders of veins; I50.9 Heart failure, unspecified; R73.9 Hyperglycemia, unspecified; I08.1 Rheumatic disorders of both mitral and tricuspid valves; S81.802A Unspecified open wound, left lower leg, initial encounter; S81.801A Unspecified open wound, right lower leg, initial encounter; X58.XXXA Exposure to other specified factors, initial encounter; N40.1 Benign prostatic hyperplasia with lower urinary tract symptoms; R33.8 Other retention of urine; I77.6 Arteritis, unspecified; Z20.822 Contact with and (suspected) exposure to COVID-19; Y99.8 Other external cause status; Y93.89 Activity, other specified; Y92.89 Other specified places as the place of occurrence of the external cause; Z85.46 Personal history of malignant neoplasm of prostate; Z79.899 Other long term (current) drug therapy

== ENCOUNTER 2021-01-07 13:40 | Emergency (ER) | payer MEDICARE ==
[~2021-01-07] VITALS: Ht 175.3 cm; Wt 94.8 kg
[~2021-01-07 13:40] MED LIST changes: +METOPROLOL SUCC25 M1 PO; +PREDNISONE 20 M20 MG PO; +SEROQUEL 25 MG25 M1 PO
[2021-01-07 14:12] LABS: ABSOLUTE EOSINOPHILS 0.2 thou/uL (0.0-0.7); ABSOLUTE LYMPHOCYTES 0.7 thou/uL (0.8-5.3); ABSOLUTE MONOCYTES 0.7 thou/uL (0.0-1.2); ABSOLUTE NEUTROPHILS 7.2 thou/uL (1.6-8.1); BASOPHILS 0.4 %; EOSINOPHILS 2.2 %; HEMATOCRIT 35.5 % (42.0-52.0); HEMOGLOBIN 11.6 gm/dL (14.0-18.0); LYMPHOCYTES 7.5 %; MCH 28.6 pg (26.0-34.0); MCHC 32.7 g/dL (28.0-37.0); MCV 87.5 fL (80.0-100.0); MONOCYTES 8.5 %; MPV 6.9 fl. (7.2-11.1); NUCLEATED RBCS 0 /100WBC; PLATELET COUNT* 155 thou/uL (150-400); POLYS 81.4 %; RBC 4.06 mil/uL (4.50-6.00); RDW-CV 19.8 % (10.5-14.5); WBC 8.8 thou/uL (4.0-11.0)
[2021-01-07 14:24] LABS: CALCIUM 8.6 mg/dL (8.5-10.1); CREATININE 1.3 mg/dL (0.6-1.3); POTASSIUM 3.2 mmol/L (3.5-5.1)
[2021-01-07 14:34] LABS: ALBUMIN 2.8 g/dL (3.4-5.0); TOTAL BILIRUBIN 0.9 mg/dL (<0.1-1.0); TOTAL PROTEIN 6.9 g/dL (6.4-8.2)
[2021-01-07 14:49] LABS: URINE BILIRUBIN NEGATIVE (Negative); URINE BLOOD 1+ (Negative); URINE CLARITY CLEAR; URINE COLOR YELLOW; URINE GLUCOSE-RANDOM NEGATIVE (Negative); URINE KETONES NEGATIVE (Negative); URINE LEUKOCYTES-REFLEX NEGATIVE (Negative); URINE NITRITE-REFLEX NEGATIVE (Negative); URINE PROTEIN 2+ (Negative); URINE UROBILINOGEN 0.2 E.U./dl (0.2-1.0)
[2021-01-07 15:00] LABS: BACTERIA-REFLEX 1-9 Few /HPF (None Seen); CASTS None Seen /LPF (None Seen); CRYSTALS None Seen /LPF (None Seen); SQUAMOUS 0-3 Few /LPF (0-3); URINE RBC 0-2 Rare /HPF (0-2); URINE WBC-REFLEX 0-5 Rare /HPF (0-5)
[2021-01-07] MEDS ORDERED: PREDNISONE 20 M20 M1 PO (15:56)
[2021-01-07 16:02] VITALS: BP 141/99
--- NOTE | 2021-01-08 11:40 | EKG ---
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
== END 2021-01-07 16:05 | disposition home or self-care (01) ==
LOC: M.ERS 13:40
PROVIDERS: Family Medicine
DX: R53.1 Weakness (principal); Z20.822 Contact with and (suspected) exposure to COVID-19; I10 Essential (primary) hypertension; Z86.2 Personal history of diseases of the blood and blood-forming organs and certain disorders involving the immune mechanism; Z85.46 Personal history of malignant neoplasm of prostate

== ENCOUNTER 2021-02-02 10:58 | Inpatient (IN) | payer MEDICARE ==
[~2021-02-02] VITALS: Ht 175.3 cm; Wt 100.2 kg
[~2021-02-02 10:58] MED LIST changes: +PREDNISONE 20 M20 M1 PO
[2021-02-02 11:05] VITALS: BP 160/87
[2021-02-02 11:28] LABS: HEMATOCRIT 34.9 % (42.0-52.0); HEMOGLOBIN 11.5 gm/dL (14.0-18.0); MCHC 32.9 g/dL (28.0-37.0); MCV 88.2 fL (80.0-100.0); MPV 7.3 fl. (7.2-11.1); NUCLEATED RBCS 0 /100WBC; PLATELET COUNT* 236 thou/uL (150-400); RBC 3.96 mil/uL (4.50-6.00); RDW-CV 17.9 % (10.5-14.5); WBC 14.7 thou/uL (4.0-11.0)
[2021-02-02 11:38] LABS: CALCIUM 8.7 mg/dL (8.5-10.1); CREATININE 1.6 mg/dL (0.6-1.3); POTASSIUM 3.3 mmol/L (3.5-5.1)
[2021-02-02 11:48] LABS: TOTAL BILIRUBIN 0.5 mg/dL (<0.1-1.0); TOTAL PROTEIN 7.3 g/dL (6.4-8.2)
[2021-02-02 11:54] LABS: URINE BILIRUBIN NEGATIVE (Negative); URINE BLOOD 3+ (Negative); URINE CLARITY CLEAR; URINE COLOR YELLOW; URINE GLUCOSE-RANDOM NEGATIVE (Negative); URINE KETONES NEGATIVE (Negative); URINE LEUKOCYTES-REFLEX NEGATIVE (Negative); URINE NITRITE-REFLEX NEGATIVE (Negative); URINE PROTEIN 3+ (Negative); URINE SPECIFIC GRAVITY 1.025 (1.005-1.030); URINE UROBILINOGEN 0.2 E.U./dl (0.2-1.0)
[2021-02-02 12:01] LABS: SQUAMOUS 0-3 Few /LPF (0-3); URINE RBC 3-10 Few /HPF (0-2); URINE WBC-REFLEX None Seen /HPF (0-5)
[2021-02-02 12:02] LABS: HYALINE CASTS 0-3 Few /LPF (None Seen); MUCUS None Seen strn/LPF (None Seen)
[2021-02-02 12:18] LABS: ABSOLUTE EOSINOPHILS 0.3 thou/uL (0.0-0.7); ABSOLUTE LYMPHOCYTES 1.3 thou/uL (0.8-5.3); ABSOLUTE MONOCYTES 0.7 thou/uL (0.0-1.2); ABSOLUTE NEUTROPHILS 12.3 thou/uL (1.6-8.1); HYPOCHROMASIA Occasional; PLATELET ESTIMATE ADEQUATE
[2021-02-02 12:19] LABS: MICROCYTES Occasional
[2021-02-02 12:24] LABS: CRYSTALS None Seen /LPF (None Seen)
--- NOTE | 2021-02-02 12:27 | NUR ---
STRAIGHT CATH FOR URINE.
--- NOTE | 2021-02-02 14:43 | EKG ---
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 : 1945 Requested By: Rosales Patterson Order Number: [id number] MD: Calos Cline Measurements Intervals [place] Rate: 89 P: 59 MI: 140 QRS: 38 QRSD: 87 T: 88 QT: 371 QTc: 452 Interpretive Statements Sinus tachycardia Paired ventricular premature complexes Low voltage, extremity and precordial leads Nonspecific T abnormalities, lateral leads Compared to ECG 01/07/2021 13:50:44 Ventricular premature complex(es) now present Low QRS voltage now present T-wave abnormality now present Sinus rate has increased Electronically Signed On 02-02-2021 14:43:07 CDT by Calos Cline [email or web address] <ELECTRONICALLY SIGNED> By: Calos Cline MD, [facility] 02/02/21 1443 1117 1117 Calos Cline MD, [facility] /EPI
[2021-02-02 15:14] VITALS: BP 141/81
[2021-02-02 16:00] VITALS: BP 150/94
[2021-02-02 20:00] VITALS: BP 160/99
--- NOTE | 2021-02-02 20:00 | NUR ---
RECEIVED REPORT AND ASSUMED CARE OF PT, ASSESSMENT COMPLETED. PT ALERT, ANSWERING SHORT QUESTIONS OR YES/NO. PT STIFF, UNABLE TO MOVE ARMS OR LEGS, PAIN WITH PASSIVE MOVEMENT. TAKING FLUIDS WELL WITHOUT COUGHING OR CHOKING. TELEMETRY ON SHOWING SR WITH FREQ PAC/PVC. WILL CONT TO MONITOR AND ASSIST NEEDED.
[2021-02-03] VITALS: BP 153/78
--- NOTE | 2021-02-03 01:30 | NUR ---
PERIAREA CLEANSED, GROIN EXCORIATED, SCROTUM SLOUGHING. PRESSURE AREA NOTED TO LT BUTTOCKS. MARCELA LOWER LEGS DRSGS REMOVED. PURULENT DRAINAGE NOTED. LEGS MOIST AND ACTIVE BLEEDING NOTED. CLEANSED WITH WOUND CLEANSER, PETROLEUM DRSG APPLIED, WRAPPED WITH KERLEX, TUBE BAKER PAINT APPLIED.
[2021-02-03 04:13] LABS: CALCIUM 8.2 mg/dL (8.5-10.1); CREATININE 1.5 mg/dL (0.6-1.3); POTASSIUM 3.2 mmol/L (3.5-5.1)
[2021-02-03 04:30] VITALS: BP 157/85
[2021-02-03 04:50] LABS: HEMATOCRIT 31.3 % (42.0-52.0); HEMOGLOBIN 10.2 gm/dL (14.0-18.0); MCH 28.5 pg (26.0-34.0); MCHC 32.5 g/dL (28.0-37.0); MCV 87.7 fL (80.0-100.0); MPV 7.7 fl. (7.2-11.1); RBC 3.57 mil/uL (4.50-6.00); RDW-CV 18.5 % (10.5-14.5); WBC 12.9 thou/uL (4.0-11.0)
--- NOTE | 2021-02-03 06:30 | NUR ---
DIFFICULTY WITH REPOSITIONING PT, VERY STIFF, PUSHES BACK WITH TURNING AND YELLING OUT STOP. NO CHANGE IN ASSESSMENT. TELEMETRY CONT TO SHOW SR WITH FREQ PAC AND PVC. HS GOALS OF REST AND SAFETY ACHIEVED. HOURLY ROUNDING OBSERVED.
--- NOTE | 2021-02-03 08:57 | NUR ---
CM S/W PT ,FREDIS, WHO INDICATED PT HAS HAD INCREASED CONFUSION AT HOME WHERE HE RESIDES WITH HER. PT DOES NOT AMBULATE, HAS A W/C. PT IS RECEIVES ASSISTANCE WITH ADLS. PT IS CURRENT WITH [facility]. FREDIS INDICATED PT HAS BEEN TO [facility] (~50 DAYS) AND [facility] (~40 DAYS) & WAS TOLD HE WAS MAXED OUT SO "MEDICARE WOULDNT PAY FOR ANYMORE." ROEL MATUTE W/TARIK WITH [facility] TO CONFIRM PT IS ON SRVC WITH THEM. PT IS CURRENTLY ON SRVC FOR SN PT OT AND SW FOR UTI, ANEMIA, WRAPPING RIGHT AND LEFT CALVES FOR ULCER, STRENTHING AND TRANSFERS.
[2021-02-03 09:58] VITALS: BP 164/97
[2021-02-03 12:00] VITALS: BP 158/94
--- NOTE | 2021-02-03 13:33 | NUR ---
Nutrition: consult for wound on sacurm, unstaged at this time. Hx of venous stasis ulcers. 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 Pt a litte confused at visit, family in room. Na 152, K 3.2, BUN 24, Cl 113, Cr 1.5, albumin 2.0. Prealbumin 10.2. Wt up almost 20 lb from admit 3 months ago. Pt agreed to Ensure Max daily which he has had in past. Assesed at mild nutrition risk.
--- NOTE | 2021-02-03 13:34 | NUR ---
WOUND NURSE: PATIENT WAS SEEN THIS AM TO ADDRESS MULTIPLE LESIONS ON BILATERAL LOWER EXTREMITIES AND LEFT DORSAL FOOT. AFFECTED AREAS [place] THE CIRCUMFERENCE OF THE LOWER LEGS AND THE DORSAL ASPECT OF THE LEFT FOOT. THIS IS AN AREA MEASURING 24.0 X 28.0 X 0.1 CM EACH. DORSAL FOOT APPROX 6.0 X 8.0 X 0.1 CM. EACH WOUND PRESENTS A SHALOW EROSION CONTAINING RED, NONGRANULATING TISSUE IN EACH. MODERATE AMOUNTS OF SEROUSANGUINOUS DRAINAGE. PATIENT HAD STICHES PRESENT ON BX SITE OF LEFT LATERAL CALF. THESE REMOVED BY THIS NURSE. DR EUGENIA GARY, DPJayjay CONSULTED AND SAW THE PATIENT. SHE AGREES TO USE UNNABOOTS. PATIETN WITHOUT EDEMA IN LE'S AT TIME OF THIS ASSESSMENT. BLE CLEANSED WITH SOAP AND WATER, RINSED, THEN PATTED DRY. UNNABOOTS PLACED FROM TOES TO KNEE BLE FOLLOWS: UNNABOOT, COTTON CAST PADDING, COBAN. THIS WAS TOLERATED WELL BY THE PATIENT. CAME IN AND REPORTED THAT THE WHITE RESIDUE ON PATIENT'S LEGS AND THAT WOULDN'T EASILY WASH AWAY WAS SILVADENE CR WHICH WAS BEING USED AT HOME. THERE IS CONCERN THIS MAY HAVE BEEN ADVERSELY AFFECTING PATIENT'S LEGS. DRESSINGS ARE A WEEKLY DRESSING CHANGE.
--- NOTE | 2021-02-03 18:45 | NUR ---
Pt bedrest. Yells and/or groans when staff attempt to reposition pt, even the smallest of movements. Dillon with wound care worked with pt and dressed wounds, and assisted Dr. Alves with bedside procedure (debridment of wounds?). VSS. Incontinent of urine. Pt requires feeding and dependent care; unable to assist with cares. Also disoriented except to self and . Will continue to monitor.
[2021-02-03 20:44] VITALS: BP 160/88
[2021-02-04 01:21] VITALS: BP 123/72
[2021-02-04 03:20] VITALS: BP 141/92
[2021-02-04 04:34] LABS: CALCIUM 8.4 mg/dL (8.5-10.1); CREATININE 1.3 mg/dL (0.6-1.3); POTASSIUM 3.2 mmol/L (3.5-5.1)
[2021-02-04 04:35] LABS: HEMATOCRIT 29.8 % (42.0-52.0); HEMOGLOBIN 9.8 gm/dL (14.0-18.0); MCH 28.7 pg (26.0-34.0); MCHC 32.7 g/dL (28.0-37.0); MCV 87.7 fL (80.0-100.0); MPV 7.5 fl. (7.2-11.1); RBC 3.4 mil/uL (4.50-6.00); WBC 10.9 thou/uL (4.0-11.0)
--- NOTE | 2021-02-04 07:46 | NUR ---
PT IS ABLE TO COMMUNICATE HIS NEEDS TO STAFF WITH DIFFICULTY; HE IS A+OX1, FORGETFUL AND CONFUSED. CURRENT PAIN MEDICATION REGIMEN HAS BEEN ADEQUATE FOR CONTROLLING HIS PAIN UP TO THIS TIME. PT IS INCONTINENT OF BOWEL AND BLADDER AT THIS TIME. WOUND CARE FOLLOWING.
[2021-02-04 08:00] VITALS: BP 151/97
[2021-02-04] MEDS ORDERED: KEFLEX250 MG PO (13:23)
[2021-02-04 14:00] VITALS: BP 151/97
[2021-02-04 15:09] VITALS: BP 155/86
[2021-02-04 17:23] VITALS: BP 155/86
== END 2021-02-04 17:30 | disposition home health service (06) | DRG 871 ==
LOC: M.ERS 10:58 → M.2W 12:55 → M.TBA-ER 12:55 → M.2W 15:28
PROVIDERS: Emergency Medicine Emergency Medical Services; ADMIT Family Medicine; ATTEND Family Medicine
DX: A41.9 Sepsis, unspecified organism (principal); G93.41 Metabolic encephalopathy; R53.2 Functional quadriplegia; E43 Unspecified severe protein-calorie malnutrition; N17.0 Acute kidney failure with tubular necrosis; L03.115 Cellulitis of right lower limb; E87.0 Hyperosmolality and hypernatremia; L03.116 Cellulitis of left lower limb; N18.30 Chronic kidney disease, stage 3 unspecified; R73.9 Hyperglycemia, unspecified; M12.9 Arthropathy, unspecified; D64.9 Anemia, unspecified; N40.0 Benign prostatic hyperplasia without lower urinary tract symptoms; I87.8 Other specified disorders of veins; I12.9 Hypertensive chronic kidney disease with stage 1 through stage 4 chronic kidney disease, or unspecified chronic kidney disease; Z20.822 Contact with and (suspected) exposure to COVID-19; Z85.46 Personal history of malignant neoplasm of prostate; Z79.899 Other long term (current) drug therapy; Z68.32 Body mass index [BMI] 32.0-32.9, adult

== ENCOUNTER 2021-02-07 03:40 | Inpatient (IN) | payer MEDICARE ==
[~2021-02-07] VITALS: Ht 175.3 cm; Wt 100.7 kg
--- NOTE | ~2021-02-07 | PROC ---
[address] [address] PROCEDURE REPORT Name: DRAGANCATALINA Room: [address] IN [facility]#: [id number] Admission: 02/07/21 Attend Phys: Angel Gee Discharge: Date of : 47 Report #: [id number] THIS REPORT FOR: cc: Rajiv Guadarrama Adam J DO [facility],Medical Records Staff ~ For GI report, please see the Provation report in Perceptive 7 content. By: 1444Medical Records Staff JUDE /LORENE
[~2021-02-07 03:40] MED LIST changes: +KEFLEX250 MG PO
[2021-02-07 03:52] VITALS: BP 123/108
[2021-02-07 04:26] LABS: HEMATOCRIT 35.5 % (42.0-52.0); MCH 28.8 pg (26.0-34.0); MCHC 33.2 g/dL (28.0-37.0); MCV 86.9 fL (80.0-100.0); MPV 7.7 fl. (7.2-11.1); NUCLEATED RBCS 0 /100WBC; RBC 4.09 mil/uL (4.50-6.00); RDW-CV 18.1 % (10.5-14.5); WBC 19.5 thou/uL (4.0-11.0)
[2021-02-07 04:29] LABS: CALCIUM 9.2 mg/dL (8.5-10.1); CREATININE 1.2 mg/dL (0.6-1.3); POTASSIUM 3.2 mmol/L (3.5-5.1)
[2021-02-07 04:32] LABS: BE 4.5 mmol/L (-2 to +3); PCO2 41.3 mmHg (35.0-45.0)
[2021-02-07 04:36] LABS: PO2 180.3 mmHg (75.0-100.0)
[2021-02-07 04:39] LABS: ALBUMIN 1.5 g/dL (3.4-5.0); PHOSPHORUS* 4.2 mg/dL (2.5-4.9); TOTAL BILIRUBIN 0.5 mg/dL (<0.1-1.0); TOTAL PROTEIN 7.6 g/dL (6.4-8.2)
[2021-02-07 05:35] LABS: HEMOGLOBIN 11.8 gm/dL (14.0-18.0); PLATELET COUNT* 557 thou/uL (150-400)
[2021-02-07 07:19] LABS: ABSOLUTE EOSINOPHILS 0.2 thou/uL (0.0-0.7); ABSOLUTE LYMPHOCYTES 0.4 thou/uL (0.8-5.3); ABSOLUTE MONOCYTES 0.8 thou/uL (0.0-1.2); ABSOLUTE NEUTROPHILS 18.1 thou/uL (1.6-8.1); PLATELET ESTIMATE ADEQUATE
[2021-02-07 10:58] VITALS: BP 148/89
--- NOTE | 2021-02-07 11:05 | EKG ---
[place] [address] ELECTROCARDIOGRAM REPORT Name: DRAGANCATALINA Titus Room: [place] [address] ADM IN [facility]#: [id number] Admission: 02/07/21 Attend Phys: Blanco Sterling Discharge: Date of : 47 Date of Service: 02/07/21 0349 Report #: [id number] THIS REPORT FOR: //name// [facility] ED Test Date: 2021-02-07 Test Time: 03:49:46 Pat Name: CATALINA ARCHIBALD Department: Room: [facility] Gender: M Account Liaison Hospice: [facility] : 1945 Requested By: Michaela Phelan Order Number: [id number] MD: Calos Cline Measurements Intervals [place] Rate: 124 P: 64 MN: 122 QRS: 32 QRSD: 85 T: 16 QT: 320 QTc: 460 Interpretive Statements Sinus rhythm with short burst of SVT and rare PVCs Borderline T wave abnormalities Compared to ECG 02/02/2021 11:17:10 Short burst of SVT is noted Electronically Signed On 02-07-2021 11:05:41 CDT by Calos Cline [email or web address] <ELECTRONICALLY SIGNED> By: Calos Cline MD, FAC 02/07/21 1105 0349 0349 Calos Cline MD, FAC /EPI
[2021-02-07 14:59] VITALS: BP 142/82
--- NOTE | 2021-02-07 16:09 | NUR ---
PATIENT PRESENTED TO ED EARLY AM BY EMS AND SPOUSE. PATIENT RUNNING FEVER AND VOMITING. PATIENT WAS DISCHARGED THIS PAST TUESDAY BY [facility], PER SPOUSE. PATIENT IS CONFUSED TO TIME AND PLACE. HE KNOWS HIS . PATIENT SKIN IS DRY AND FLAKY. DRIED GREEN MUCOUS COVERING BOTH EYELIDS. PATIENT HAS TWO STAGE 2 PRESSURE ULCERS ON RIGHT BUTTOCK. PATIENT IS CONSTANTLY WET WITH URINE. PATIENT HAD DARK TARRY STOOL DURING ASSESSMENT. PATIENT CLEANED UP AND REPOSITIONED FOR COMFORT. PATIENT LIVES WITH SPOUSE ALONE IN APARTMENT. PT UNABLE TO AMBULATE FOR PAST 3 MONTHS. PATIENT HAS WRAPS ON BILATERAL LOWER LEGS AND IS SEEN IN WOUND CLINIC AT [facility]. THE WRAPS ON PATIENT'S LEGS ARE FROM 02/03/21. PATIENT HAS IRREGULAR HEART RATE AND SHALLOW RESP 31/MIN. PATIENT HAS 18G R FA, WITH IV FLUIDS RUNNING; AND 20G L HAND SL.
[2021-02-07 17:22] VITALS: BP 145/81
[2021-02-07 18:00] VITALS: BP 158/102
--- NOTE | 2021-02-07 19:32 | NUR ---
Patient resting in room in bed with fluids going through IV, Alert to self, Call light within reach. Gave report to shift coordinator nurse.
[2021-02-07 19:50] VITALS: BP 190/109
[2021-02-08] VITALS: BP 175/104
--- NOTE | 2021-02-08 00:45 | NUR ---
ASSUMED CARE OF PT AT 1900. PT IS CONFUSED. BLOOD PRESSURE ELEVATED. PT GETTING PO AND IV METOPROLOL. PT HAS MULTIPLE WOUNDS. PT IS IN SINUS RYTHM ON THE TELEMETRY. PT IS RESTING COMFORTABLY IN BED. RESPIRATIONS ARE EVEN AND NONLABORED. WILL CONTINBUE TO MONITOR PT.
[2021-02-08 04:00] VITALS: BP 146/97
[2021-02-08 07:19] LABS: ABSOLUTE BASOPHILS 0.2 thou/uL (0.0-0.2); ABSOLUTE LYMPHOCYTES 0.7 thou/uL (0.8-5.3); ABSOLUTE MONOCYTES 0.4 thou/uL (0.0-1.2); ABSOLUTE NEUTROPHILS 16.8 thou/uL (1.6-8.1); BASOPHILS 1.2 %; HEMATOCRIT 32.2 % (42.0-52.0); HEMOGLOBIN 10.5 gm/dL (14.0-18.0); LYMPHOCYTES 3.8 %; MCH 28.4 pg (26.0-34.0); MCHC 32.7 g/dL (28.0-37.0); MCV 86.9 fL (80.0-100.0); MONOCYTES 2.4 %; MPV 7.1 fl. (7.2-11.1); NUCLEATED RBCS 0 /100WBC; PLATELET COUNT* 531 thou/uL (150-400); POLYS 92.6 %; RDW-CV 17.7 % (10.5-14.5); WBC 18.1 thou/uL (4.0-11.0)
[2021-02-08 07:28] LABS: CALCIUM 8.6 mg/dL (8.5-10.1); CREATININE 1.3 mg/dL (0.6-1.3); POTASSIUM 3.3 mmol/L (3.5-5.1)
[2021-02-08 12:00] VITALS: BP 173/106
[2021-02-08 12:06] LABS: ANTI-DNA SCREEN <1 IU/mL (0-9); ANTI-RNP <0.2 AI (0.0-0.9); ANTI-SSA <0.2 AI (0.0-0.9); ANTIJO-I AB <0.2 AI (0.0-0.9)
[2021-02-08 16:00] VITALS: BP 145/92
[2021-02-08 20:10] VITALS: BP 136/83
[2021-02-09] VITALS (7 sets, daily range): BP systolic 137–180; BP diastolic 89–108
[2021-02-09 04:47] LABS: ALBUMIN 1.6 g/dL (3.4-5.0); CALCIUM 8.4 mg/dL (8.5-10.1); CREATININE 1.4 mg/dL (0.6-1.3); TOTAL BILIRUBIN 0.2 mg/dL (<0.1-1.0); TOTAL PROTEIN 6.7 g/dL (6.4-8.2)
[2021-02-09 04:53] LABS: ABSOLUTE LYMPHOCYTES 0.9 thou/uL (0.8-5.3); ABSOLUTE MONOCYTES 0.7 thou/uL (0.0-1.2); BASOPHILS 0.1 %; HEMATOCRIT 32.5 % (42.0-52.0); HEMOGLOBIN 10.2 gm/dL (14.0-18.0); LYMPHOCYTES 4.2 %; MCH 27.6 pg (26.0-34.0); MCHC 31.5 g/dL (28.0-37.0); MCV 87.6 fL (80.0-100.0); MONOCYTES 3.4 %; MPV 7.3 fl. (7.2-11.1); NUCLEATED RBCS 0 /100WBC; PLATELET COUNT* 516 thou/uL (150-400); POLYS 92.3 %; RBC 3.71 mil/uL (4.50-6.00); RDW-CV 17.8 % (10.5-14.5); WBC 20.5 thou/uL (4.0-11.0)
--- NOTE | 2021-02-09 04:58 | NUR ---
PT ALERT, ORIENTED TO SELF, CONFUSED. IV FLUIDS INFUSING ORDERED. VSS ON 3L NC. PT REPOSITIONED Q2H. PT HAD SEVERAL EPISODES OF BRIEF BRADYCARDIA 33-35bpm, QUICKLY BACK TO 50-60s, NONSYMPTOMATIC. ASSESSMENTS AND HOURLY ROUNDINGS COMPLETE, WILL CONTINUE TO MONITOR.
--- NOTE | 2021-02-09 14:57 | EKG ---
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 : 1945 Requested By: Nirmala Jules Order Number: [id number] Reading MD: Casa Magdaleno Measurements Intervals [place] Rate: 72 P: 86 ND: 153 QRS: 52 QRSD: 108 T: 33 QT: 465 QTc: 509 Interpretive Statements Sinus rhythm Ventricular trigeminy Borderline low voltage, extremity leads Prolonged QT interval Baseline wander in lead(s) I,III,aVL Compared to ECG 02/07/2021 03:49:46 rate has slowed Prolonged QT interval now present Electronically Signed On 02-09-2021 14:57:30 CDT by Casa Magdaleno [email or web address] <ELECTRONICALLY SIGNED> By: Casa Magdaleno MD, [facility] 02/09/21 1457 0534 0534 Casa Magdaleno MD, [facility] /EPI
--- NOTE | 2021-02-09 14:59 | EKG ---
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 <ELECTRONICALLY SIGNED> By: Casa Magdaleno MD, [facility] 02/09/21 1459 1037 1037 Casa Magdaleno MD, [facility] /EPI
--- NOTE | 2021-02-09 15:16 | NUR ---
CM ASSESSMENT: PT IS KNOWN TO THIS CM FROM PREVIOUS ADMISSION. PT IS ALERT, BUT FORGETFUL. PT RESIDES AT HOME WITH SPOUSE AND SHE ASSIST THE PT WITH ALL CARES AT HOME. PT USES A WHEELCHAIR FOR MOBILITY, BUT MOST RECENTLY HAS BEEN BED BOUND. PT D/C FROM THIS HOSPITAL ON 02/04/21 WITH [facility]. PT HAS PAST HX OF SNF AT [facility]. PT CURRENTLY ON 2L O2. AT LAST ADMIT CM WAS INFORMED THAT THE PT DOES NOT HAVE ANF SKILLED DAYS AVAILABLE HE HAS 'MAXED OUT HIS MEDICARE SKILLED DAYS (USED 50 DAYS AT [facility] AND [facility]). PT AND SPOUSE MAY NEED TO CONSIDER LTC AT D/C THE PT DOES NOT HAVE SNF BENEFIT AVAILABLE TO HIM. PHYSICIAN INFORMS OF THE NEED TO POSSIBLY CONSIDER INPT ARU FOR THE PT. CM WILL REMAIN AVAILABLE TO ASSIST AND FOLLOW NEEDED.
--- NOTE | 2021-02-09 15:57 | NUR ---
WOUND NURSE: PATIENT SEEN TO ADDRESS WOUNDS ON BLE AND ON SACRUM. VLUS ON RLE MEASURE 21 X 16 X 0.1 CM. MULTIPLE LESIONS WITHIN THIS AREA WHICH IS PREDOMINANT ON ANTERIOR AND MEDIAL AND LATERAL ASPECTS OF LEGS. LLE MEASURES 21 X 16 X 0.1 CM AND PRESENTS IN SIMILAR FASHION THE OPPOSITE LEG. WOUND CARE PROVIDED PRESCRIBED. SACRAL WOUND PRESENTS WITH PARTIAL THICKNESS TISSUE LOSS AND CONTAINS RED NONGRANULATING TISSUE IN THE WOUND BED. WOUND CARE ALSO PROVIDED TO THIS LESION PRESCRIBED. PATIENT INSTRUCTED ON MEASURES TO PROMOTE HEALING AND PREVENT COMPLICATIONS. STATES HE UNDERSTANDS.
[2021-02-10] VITALS (7 sets, daily range): BP systolic 106–199; BP diastolic 70–109
--- NOTE | 2021-02-10 04:36 | NUR ---
ASSUMED CARE OF PT AT 1900. PT IS CONFUSED. BLOOD PRESSURE ELEVATED. HYDRALAZINE GIVEN. PT HAD SOME VOMITING. PT ALSO HAD SOME SHORT RUNS OF VTACH AND IS GOING IN AND OUT OF AFIB. DR PULLIAM AND DR GARLAND NOTIFIED. PT IS SLEEPING QUIETLY IN BED AT THIS TIME. RESPIRATIONS ARE EVEN AND NONLABORED. WILL CONTINUE TO MONITOR PT.
[2021-02-10 04:50] LABS: HEMOGLOBIN 11.1 gm/dL (14.0-18.0); MCH 28.4 pg (26.0-34.0); MCHC 32.8 g/dL (28.0-37.0); MCV 86.7 fL (80.0-100.0); MPV 7.4 fl. (7.2-11.1); NUCLEATED RBCS 0 /100WBC; RBC 3.92 mil/uL (4.50-6.00); RDW-CV 17.9 % (10.5-14.5); WBC 24.5 thou/uL (4.0-11.0)
[2021-02-10 04:55] LABS: ALBUMIN 2.2 g/dL (3.4-5.0); CALCIUM 8.7 mg/dL (8.5-10.1); CREATININE 1.3 mg/dL (0.6-1.3); TOTAL BILIRUBIN 0.4 mg/dL (<0.1-1.0); TOTAL PROTEIN 7.3 g/dL (6.4-8.2)
[2021-02-10 04:58] LABS: PREALBUMIN 22.2 mg/dL (18.0-35.7)
[2021-02-10 05:06] LABS: PLATELET COUNT* 658 thou/uL (150-400)
[2021-02-10 06:06] LABS: POTASSIUM 2.9 mmol/L (3.5-5.1)
[2021-02-10 09:12] LABS: ABSOLUTE LYMPHOCYTES 1.2 thou/uL (0.8-5.3); ABSOLUTE MONOCYTES 1.5 thou/uL (0.0-1.2); ABSOLUTE NEUTROPHILS 21.8 thou/uL (1.6-8.1); PLATELET ESTIMATE ADEQUATE
--- NOTE | 2021-02-10 12:03 | EKG ---
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 : 1945 Requested By: Blanco Sterling Order Number: [id number] Reading MD: Maicol Gibbs Measurements Intervals [place] Rate: 101 P: VT: QRS: 0 QRSD: 90 T: -6 QT: 395 QTc: 513 Interpretive Statements Atrial fibrillation Ventricular premature complex Borderline T abnormalities, inferior leads Prolonged QT interval Compared to ECG 02/09/2021 10:37:18 Ventricular premature complex(es) now present T-wave abnormality now present Sinus rhythm no longer present Atrial premature complex(es) no longer present Electronically Signed On 02-10-2021 12:03:24 CDT by Maicol Gibbs [email or web address] <ELECTRONICALLY SIGNED> By: Maicol Gibbs MD, [facility] 02/10/21 1203 4 035 Maicol Gibbs MD, [facility] /EPI
--- NOTE | 2021-02-10 14:28 | NUR ---
PLAN OF CARE: PHYSICIAN INFORMS THAT THE PT IS NOT YET MEDICALLY STABLE. PT REMAINS TELE STAUTS. D/C PLANNING NEED FOR THE PT ARE TBD AT THIS TIME. PT DOES NOT HAVE ANY SNF DAYS LEFT, AND MAY NEED LTC AT D/C SPOUSE IS NOT ABLE TO ACCOMODATE PT'S CURRENT LEVEL OF CARE AT HOME. PREVIOUS PHYSICIAN HAD RECOMMENDED INPT REHAB. PT WILL NEED INPT REHAB CONSULT AND PT/OT/ST EVAL TO ASSIST WITH OBTAINING INPT REHAB PLACEMENT HERE OR AT ANOTHER FACILITY. ROEL HODGSON REMAIN AVAILABLE TO ASSIST AND FOLLOW NEEDED.
--- NOTE | 2021-02-10 14:46 | NUR ---
PT ALERT AND OREIENTED TO SELF WITH CONFUSION. AT BEDSIDE. PT ON 2L NC, RESTING COMFORTABLY.
[2021-02-11] VITALS: BP 180/100
--- NOTE | 2021-02-11 00:53 | NUR ---
ASSUMED CARE OF PT AT 1900. PT IS CONFUSED. BLOOD PRESSURE WAS ELEVATED. PT RECIEVED HYDRALAZINE. POTASSIUM REPLACED. PT IS AN IRREGULAR SINUS RYTHM AT TIMES. AT OTHER TIMES IT APPEARS TO BE AFIB. NO [facility] NOT[facility] THIS SHIFT. PT HAS PLUS 3 GENERALIZED EDEMA. PT IS SLEEPING QUIETLY IN BED. RESPIRATIONS ARE EVEN AND NONLABORED. WILL CONTINUE TO MONITOR PT.
[2021-02-11 04:00] VITALS: BP 148/90
[2021-02-11 04:45] LABS: HEMATOCRIT 30.1 % (42.0-52.0); HEMOGLOBIN 9.9 gm/dL (14.0-18.0); MCH 28.4 pg (26.0-34.0); MCHC 32.8 g/dL (28.0-37.0); MCV 86.5 fL (80.0-100.0); MPV 7.1 fl. (7.2-11.1); RBC 3.48 mil/uL (4.50-6.00); RDW-CV 17.6 % (10.5-14.5); WBC 23.1 thou/uL (4.0-11.0)
[2021-02-11 04:49] LABS: CALCIUM 8.2 mg/dL (8.5-10.1); CREATININE 1.2 mg/dL (0.6-1.3); POTASSIUM 3.9 mmol/L (3.5-5.1)
[2021-02-11 08:00] VITALS: BP 158/82
[2021-02-11 12:00] VITALS: BP 137/77
--- NOTE | 2021-02-11 15:37 | CON ---
[address] [address] CONSULTATION Name: CATALINA ARCHIBALD Room: [address] IN .R.#: [id number] Admission: 02/07/21 Attend Phys: Angel Gee Discharge: Date of : 47 Report #: [id number] THIS REPORT FOR: cc: Rajiv Guadarrama Adam J DO Namin, Farid M. MD ~ cc: Rajiv Guadarrama DO DATE OF CONSULTATION: 02/09/2021 Please note at the time of this dictation, the patient was seen and physically examined by myself. REASON FOR CONSULTATION: Fecal impaction. HISTORY OF PRESENT ILLNESS: This is a 75-year-old male who presented to the Emergency Room with complaints of weakness and nausea and vomiting. Apparently, the patient was discharged from the hospital just a few days ago and he has not had a bowel movement since that time. He states he had some bilious vomiting, several episodes, that were the night before he came in. His is at the bedside and able to give most of his history. He is alert and oriented to self, but otherwise, he is sleeping most of the time. He denies any cough, any abdominal pain. cannot recall exactly how long it has been since his last bowel movement. It is noted on CT that he does have a fecal impaction. The patient is wheelchair bound for the last several months and has become very weak and debilitated. He was recently diagnosed with rheumatoid arthritis. He has a history of chronic kidney disease and he has been seeing Dr. Livingston since the July 2020 for his anemia. He underwent an EGD and a colonoscopy back in July that showed grade A esophagitis, small hiatal hernia, and diverticulosis. He had some polyps in the sigmoid and transverse colon that were removed, that were tubular adenoma with internal and external hemorrhoids noted. Currently, he is not having any nausea or vomiting since he has been here. It was noted that he had an elevated troponin as well as elevated leukocyte count and noticed infiltrates on his x-rays. Allergies: No known drug allergies. MEDICATIONS FROM HOME: Include: 1. Proscar. 2. Oxybutynin. 3. Simvastatin. 4. Flomax. 5. Colace. 6. [place] [address] CONSULTATION Name: CATALINA ARCHIBALD Room: [address]#: [id number] Admission: 02/07/21 Attend Phys: Angel Gee Discharge: Date of : 47 Report #: [id number] 7. Stool softener. 8. Tylenol. 9. Melatonin. PAST MEDICAL HISTORY: Significant for: 1. Venous insufficiency. 2. Hypertension. 3. BPH. 4. Prostate cancer. 5. He has got decubitus ulcers, bilateral legs and buttocks. 6. History of iron deficiency anemia. 7. Chronic kidney disease. PAST SURGICAL HISTORY: He had right ankle fracture. FAMILY HISTORY: Negative for any GI or female cancers. SOCIAL HISTORY: Has never smoked. No alcohol or any illegal drug use. REVIEW OF SYSTEMS: Twelve-point review of systems is essentially negative except for what is mentioned in the HPI. PHYSICAL EXAMINATION: VITAL SIGNS: Temperature 36.2, pulse 73, respirations 20, blood pressure 157/106. HEART: Regular rate and rhythm. LUNGS: Diminished with some crackles bilaterally. ABDOMEN: Soft. Positive bowel sounds in all 4 quadrants with no masses or tenderness noted. LABORATORY DATA: Hemoglobin is 10.2, white count is 20.5, platelets 516. GFR is 50. He had a positive troponin, ____ 17.3. IMAGING DATA: CT scan showed bilateral infiltrates and retained fecal matter in the rectum. IMPRESSION: 1. Fecal impaction. 2. History of iron deficiency anemia, seeing Dr. Livingston. 3. Leukocytosis. 4. Elevated troponin, likely secondary to heart failure. 5. Pneumonia. 6. History of prostate cancer. 7. Congestive [place] [address] CONSULTATION Name: CATALINA ARCHIBALD Tacho Room: [address] IN [facility]#: [id number] Admission: 02/07/21 Attend Phys: Angel Gee Discharge: Date of : 47 Report #: [id number] 8. Chronic kidney disease. PLAN: 1. Dulcolax suppository 20 mg now and Dulcolax tablets 20 mg now. 2. We will await results for further evaluation later today by Dr. Lugo. Thank you for allowing us to participate in this patient's care. Please do not hesitate to call with any questions regarding this consult. <ELECTRONICALLY SIGNED> By: Chilo Lugo MD 02/11/21 1537 0741 1013Chilo Lugo MD /nt
--- NOTE | 2021-02-11 15:47 | NUR ---
PT HAD VERY LARGE DARK BROWN BM-INCONT.
[2021-02-11 16:00] VITALS: BP 146/78
--- NOTE | 2021-02-11 17:22 | CARDNUC ---
[place] [address] CARDIAC NUCLEAR IMAGING REPORT Name: DRAGANCATALINA Tacho Room: [address] [facility]#: [id number] Admission: 02/07/21 Attend Phys: Blanco Sterling Discharge: Date of : 47 Date of Service: 02/11/21 1721 Report #: [id number] THIS REPORT FOR: cc: Rajiv Guadarrama Adam J DO Liston, Michael J. MD [facility] ~ APPROVED REPORT Imaging Protocol: Rest Tc-99m/Stress Tc-99m 1 day Study performed: 02/10/2021 16:20:00 Indication: Troponin elevation Patient Location: In-Patient Room #: 223 Stress Tech: Zoey Li Stress Nurse: Nae Alba RN NM Tech:BERT Santos Ht: 5 ft 9 in Wt: 222 lbs BSA: 2.16 m2 BMI: 32.78 Medical History Medical History: Diabetic Insulin, HTN Medications: cozaar, metoprolol, hydralazine, k dur Allergies: No known drug allergies Cardiac Risk Factors: Age, HTN, Diabetes (insulin), HTN, PVD Exercise History: Sedentary Meds Held (24 hrs): metoprolol Resting Data Rest SPECT myocardial perfusion imaging was performed in supine position 30 minutes following the intravenous injection of 9.8 mCi of Tc-99m Sestamibi. Time of rest injection: 739 Date: 02/11/2021 The images were gated to evaluate regional wall motion and calculate left ventricular ejection fraction. Administration Route: IV Administration Site: Right AC Pharmacologic Stress Pharmacologic stress test was performed by injecting Regadenoson 0.4 mg IV push over 10-15 seconds immediately followed by the intravenous injection of 31.7 mCi of Tc-99m Sestamibi. Time of stress injection: 1000 Date: 02/11/2021 [place] [address] CARDIAC NUCLEAR IMAGING REPORT Name: CATALINA ARCHIBALD Room: [address] [place] [facility]#: [id number] Admission: 02/07/21 Attend Phys: Blanco Sterling Discharge: Date of : 47 Date of Service: 02/11/21 1721 Report #: [id number] Administration Route: IV Administration Site: Right AC Gated Stress SPECT was performed 40 minutes after stress injection. The images were gated to evaluate regional wall motion and calculate left ventricular ejection fraction. Stress only was performed in the Supine position. Stress Test Details Stress Test: Pharmacologic stress testing performed using 0.4 mg of regadenoson per 5 mL given IV over 10 seconds. HR Max Heart Rate (APMHR): 146 bpm Resting HR: 67 bpm Target HR (85% APMHR): 124 bpm Max HR Achieved: 103 bpm % of APMHR: 70 Recovery HR: 94 bpm BP Resting BP: 152/91 mmHg Max BP: 127/77 mmHg Recovery BP: 139/78 mmHg ECG Resting ECG: Sinus Rhythm Stress ECG: Sinus Tachycardia ST Change: None Arrhythmia: None Recovery ECG: Sinus Rhythm Recovery ST Change: None Recovery Arrhythmia: None Clinical Reason for Termination: Completed protocol Patient tolerated Lexiscan infusion without significant cardiac symptoms. Nurse Comments pt is bed bound Stress ECG Conclusion The baseline twelve-lead EKG shows sinus rhythm without significant ST segment abnormality. EKGs obtained during and post Lexiscan infusion show sinus rhythm and sinus tachycardia with no significant ST segment changes when compared to baseline. There were no stress[place] [address] CARDIAC NUCLEAR IMAGING REPORT Name: CATALINA ARCHIBALD Room: [address]#: [id number] Admission: 02/07/21 Attend Phys: Blanco Sterling Discharge: Date of : 47 Date of Service: 02/11/21 1721 Report #: [id number] Study Quality Study: Good Artifact: No artifact Study Data At rest, the left ventricular ejection fraction was 49%.. Post stress, the left ventricular ejection was 44%.. TID = 1.31. Perfusion Perfusion images show a large in size severe in intensity reversible defect involving the entire inferior wall from base to apex. No other significant fixed or reversible defects were identified. Wall Motion LV systolic function is mildly decreased. There is significant hypokinesis of the inferior and septal samaniego. Nuclear Conclusion ECG Findings: negative for ischemia Clinical Findings: negative for ischemia Nuclear Findings: positive for ischemia Exercise Capacity: not assessed Left Ventricular Function: abnormal Risk Study: high Perfusion study suggest a large region of ischemia involving the inferior wall of the left ventricle. On gated studies there is hypokinesis involving the inferior and septal samaniego. Left ventricular systolic function is mildly decreased. This is a high risk study. <Conclusion> The baseline twelve-lead EKG shows sinus rhythm without significant ST segment abnormality. EKGs obtained during and post Lexiscan infusion show sinus rhythm and sinus tachycardia with no significant ST segment changes when compared to baseline. There were no stress-induced arrhythmias. <ELECTRONICALLY SIGNED> By: Maicol Gibbs MD, FACC 02/11/211720 20 20 Maicol Gibbs MD, FACC /INF
[2021-02-11 20:00] VITALS: BP 156/78
[2021-02-12] VITALS (9 sets, daily range): BP systolic 127–206; BP diastolic 77–110
[2021-02-12 04:04] LABS: HEMOGLOBIN 10.2 gm/dL (14.0-18.0); MCH 27.9 pg (26.0-34.0); MCHC 31.9 g/dL (28.0-37.0); MCV 87.5 fL (80.0-100.0); MPV 7.3 fl. (7.2-11.1); RBC 3.65 mil/uL (4.50-6.00); RDW-CV 18.2 % (10.5-14.5); WBC 27.3 thou/uL (4.0-11.0)
[2021-02-12 04:19] LABS: CALCIUM 8.2 mg/dL (8.5-10.1); CREATININE 1.1 mg/dL (0.6-1.3); MAGNESIUM 1.8 mg/dL (1.8-2.4); POTASSIUM 3.6 mmol/L (3.5-5.1)
--- NOTE | 2021-02-12 05:47 | NUR ---
PATIENT SLEPT WELL DURING THIS SHIFT. PT REPOSITIONED Q2H PER PROTOCAL. PT WITH REDNESS ON SACRUM AREA. PT IS INCONTINENT OF BOWEL/BLADDER. PT ALERT/ORIENTED TO SELF AND TIME. PT SR W/PAC'S ON MEDICAL SOCIAL CONSULTANT. ANTIBIOTICS UNFUSING PER DR ORDER. PT WITH 2100 BLOOD SUGAR OF 125; NO INSULIN NEEDED. FREQUENTLY USED ITEMS AND CALL LIGHT WITHIN REACH. SIDERAILS UPX3 AND BED ALARM ON. WILL CONTINUE TO MONITOR.
[2021-02-12 09:46] LABS: CHOLESTEROL 119 mg/dL (<200); HDL CHOLESTEROL 32 mg/dL (>40); LDL CHOLESTEROL 66 mg/dL (<100); SERUM ASSESSMENT Clear; TC:HDL 3.7 Ratio (Not establshd); TRIGLYCERIDE 105 mg/dL (<150); VLDL 21 mg/dL (<40)
--- NOTE | 2021-02-12 12:45 | NUR ---
TO REGISTERED REPRESENTATIVE BY REGISTERED REPRESENTATIVE RN AND TECH VIA BED.
--- NOTE | 2021-02-12 14:00 | NUR ---
PT BACK FROM CARDIAC/VASCULAR SONOGRAPHER. CARDIAC/VASCULAR SONOGRAPHER SHOWING SITE IN RIGHT GROIN WHERE THEY REDUCED A HEMATOMA. AREA SOFT. DRESSING DRY AND INTACT.
--- NOTE | 2021-02-12 14:00 | NUR ---
PT BACK FROM ITEM PROCESSOR. WENT IN RIGHT GROIN. NO INTERVENTION WAS DONE. CLOSED BY ANGIO SEAL. ITEM PROCESSOR STATED PT DID HAVE HEMATOMA AT SITE BUT PRESSURE WAS HELD FOR 20MIN. NOW AREA SOFT. DRESSING CLEAN AND DRY.
--- NOTE | 2021-02-12 15:00 | NUR ---
PT STILL LYING FLAT. RIGHT GROIN DRESSING DRY AND INTACT. NO HEMATOMA NOTED.
--- NOTE | 2021-02-12 15:58 | NUR ---
PLAN OF CARE: PHYSICIAN INFORMS THAT PT IS NOT MEDICALLY STABLE AT THIS TIME. PT REMAINS TELE STATUS. PLAN FOR PT TO POSSIBLY NEED INPT ARU WHEN MEDICALLY STABLE VS LTC. CONTINUED PT/OT F/U IS NEEDED TO DETERMINE PT'S MOBILITY AND ABILITY TO GO TO INPT ARU AT D/C. CM WILL REMAIN AVAILABLE TO ASSIST AND FOLLOW NEEDED.
--- NOTE | 2021-02-12 16:13 | CARD ---
[address] [address] CARDIAC CATH REPORT Name: CATALINA ARCHIBALD Room: [address] IN [facility]#: [id number] Admission: 02/07/21 Attend Phys: Angel Gee Discharge: Date of : 47 Report #: [id number] THIS REPORT FOR: cc: Raijv Guadarrama Adam J DO Liston, Michael J. MD [facility] ~ APPROVED REPORT Study performed: 02/12/2021 12:32:00 Patient Details Patient Status: In-Patient Room #: 223 The patient is a 75 year-old male Event Personnel Maicol Gibbs Sfdc Developer, Daniel Umana RN Cdl Team Truck Driver, Kavya Reilly RTR Monitor, Kim Lamb RTR Scrub Procedures Performed Art Access - R femoral artery Left Heart Cath w/or w/o Coronaries Hemostasis w/ Mynx Indication Non-STEMI Admission/Lab Medications/Medications given during procedure Lidocaine Subcut 14 ml, Oxygen Nasal cannula 2 l per min, 0.9% Sodium Chloride IV 75 ml per hr Procedure Narrative The patient was brought urgently to the Cardiac Catheterization Laboratory and was prepped and draped in a sterile manner. The right femoral was infiltrated with 2% Lidocaine subcutaneous anesthesia. IV conscious sedation was used throughout procedure with appropriate monitoring and was performed in the presence of a registered nurse who was an independent trained observer other than the physician performing the procedure. A Fife 6 FR sheath was inserted into the right femoral artery. Coronary angiography was performed using coronary diagnostic catheters. The right coronary system was accessed and visualized with a Diagnostic 6 Fr JR 4 catheter. The left coronary system was accessed and visualized with a Diagnostic 6 Fr JL 4 catheter. The left ventricle was accessed and visualized with a Diagnostic 6 Fr JR 4 catheter. Left ventricular/[place] [address] CARDIAC CATH REPORT Name: CATALINA ARCHIBALD Room: [address] [place] [facility]#: [id number] Admission: 02/07/21 Attend Phys: Angel Gee Discharge: Date of : 47 Report #: [id number] assessed via catheter pullback. Pre-demployment femoral angiogram was performed . Closure device was deployed with a Fr Mynx 6Fr/7Fr. The patient tolerated the procedure well and there were no complications associated with the procedure. A hematoma occurred. Intraoperative Conscious Sedation Sedation start time: 13:09 Case end Time: 13:31 Fentanyl 25 mcg Versed 1 mg Fluoro Time: 8.0 minutes Dose: DAP 255162 cGycm2 1497 mGy Contrast Type and Amount: Visipaque 95 ml Coronary Angiography The patient's coronary anatomy is right dominant. Diagnostic Cath Left Main The left main coronary is mildly ectatic and bifurcates into a left anterior descending and circumflex coronary arteries. LAD The left anterior descending coronary artery has moderate 40% plaquing in the proximal portion. The mid vessel is free of significant disease. Distally there is a focal 50% followed by a diffuse 60% narrowing. Diagonal 1 A moderate sized first diagonal branch is free of significant disease. Circumflex The circumflex coronary artery is mildly ectatic in its proximal portion. After the takeoff of a large obtuse marginal of the mid and distal circumflex artery is a small diffusely plaqued vessel. OM1 A single large branch first obtuse marginal branch is mild to moderately ectatic in its proximal and midportion. The distal vessel is free of significant disease. Right Coronary The right coronary artery is moderately ectatic throughout its proximal mid and distal portion. R PDA The PDA is occluded at the origin and fills by [id number] collaterals. RPLV A large size branch posterior lateral LV branch is moderately plaqued without hemodynamically significant stenoses. Left Ventriculography Left Ventriculography was not [place] [address] CARDIAC CATH REPORT Name: CATALINA ARCHIBALD Room: [address] [place] [facility]#: [id number] Admission: 02/07/21 Attend Phys: Angel Gee Discharge: Date of : 47 Report #: [id number] The aortic pressure is 155/77 mmHg with a mean of 102 mmHg. The left ventricular pressure is 120/15 mmHg with a mean of mmHg. The left ventricular end diastolic pressure is 21 mmHg. Conclusion 1. Occluded PDA that fills by left to right collaterals. 2. Moderate nonocclusive disease with mild to moderate ectasia as outlined above. 3. Mildly elevated left ventricular end-diastolic pressure. Recommendations 1. Continue medical management and aggressive risk factor modification. <ELECTRONICALLY SIGNED> By: Maicol Gibbs MD, FACC 02/12/211611 11 11Micclaudia Gibbs MD, FACC /INF
--- NOTE | 2021-02-12 20:07 | NUR ---
ALERT TO PERSON AND PLACE, CONFUSION NOTED THROUGHOUT DAY. PT WENT FOR CARDIAC CATH WITH NO INTERVENTIONS TODAY. RIGHT GROIN CLOSED WITH MYNXGRIP VASCULAR CLOSURE DEVICE. PER DR. VILLALOBOS PT TO LAY FLAT FOR 2 HOURS. RIGHT GROIN DRESSING DRY AND INTACT. SITE SOFT. IV RIGHT FA INTACT AND PATENT. MARCELA LOWER LEGS WRAPPED. POPLITEAL PULSES PRESENT. LUNGS CLEAR UPPER AND DIMSINISHED BASES. GENERALIZED TRUNK AND ARM EDEMA NOTED. ON O2 AT 0.5L NC. SATING 98%. INCONTINENT URINE. BED CHANGED AND PT CLEANED UP. AND FAMILY AT BED SIDE TODAY. NO C/O. WILL CONTINUE TO MONITOR
--- NOTE | 2021-02-13 03:55 | NUR ---
PATIENT ALERT/ORIENTED TO SELF/PLACE. PT WITH FLUIDS/ANTIBIOTICS INFUSING PER DR ORDER. PT WITH 2100 BLOOD SUGAR OF 109; NO INSULIN INDICATED. PT DENIES PAIN/NAUSEA. PT TURNED Q2H PER PROTOCAL. PT IS INCONTINENT OF BOWEL AND BLADDER. PT WITH IRREGULAR HR AND IS SR WITH PAC/PVC'S ON NEUROPSYCHIATRIST. PT WITH WOUNDS ON SACRUM/BUTTOCKS AREA. LOWER EXTREMITIES HAVE DRESSINGS IN PLACE. FREQUENTLY USED ITEMS AND CALL LIGHT WITHIN REACH. SIDERAILS UPX3 AND BED ALARM ON. WILL CONTINUE TO MONITOR.
[2021-02-13 04:09] VITALS: BP 158/93
[2021-02-13 08:00] VITALS: BP 159/91
[2021-02-13 10:29] LABS: ABSOLUTE LYMPHOCYTES 1.1 thou/uL (0.8-5.3); ABSOLUTE MONOCYTES 0.9 thou/uL (0.0-1.2); ABSOLUTE NEUTROPHILS 19.9 thou/uL (1.6-8.1); BASOPHILS 0.2 %; EOSINOPHILS 0.1 %; HEMATOCRIT 27.7 % (42.0-52.0); HEMOGLOBIN 8.9 gm/dL (14.0-18.0); LYMPHOCYTES 4.9 %; MCH 27.9 pg (26.0-34.0); MCHC 32.1 g/dL (28.0-37.0); MCV 87.2 fL (80.0-100.0); MONOCYTES 4.2 %; MPV 7.1 fl. (7.2-11.1); NUCLEATED RBCS 0 /100WBC; PLATELET COUNT* 404 thou/uL (150-400); POLYS 90.6 %; RBC 3.17 mil/uL (4.50-6.00); RDW-CV 17.9 % (10.5-14.5); WBC 21.9 thou/uL (4.0-11.0)
[2021-02-13 10:46] LABS: ALBUMIN 1.9 g/dL (3.4-5.0); CALCIUM 7.8 mg/dL (8.5-10.1); CREATININE 1.2 mg/dL (0.6-1.3); POTASSIUM 3.4 mmol/L (3.5-5.1); TOTAL BILIRUBIN 0.4 mg/dL (<0.1-1.0); TOTAL PROTEIN 5.6 g/dL (6.4-8.2)
[2021-02-13 12:38] VITALS: BP 176/96
--- NOTE | 2021-02-13 13:41 | NUR ---
PLAN OF CARE: PHYSICIAN INFORMS OF PLAN OR THE PT TO REMAIN INPT THRU THE WEEKEND, AND POSSIBLY BE MEDICALLY STABLE TUESDAY (02/16/21). INPT ARU WILL CONTINUE TO FOLLOW PT, BUT DO NOT BELIEVE THAT HE IS APPROPRIATE FOR INPT REHAB. INPT REHAB WILL CONTINUE TO FOLLOW PT, HE IS OUT OF SNF DAYS AND HIS ONLY OTHER OPTION IS LTC. CM TO SPEAK TO PT AND HIS SPOUSE TO DISUCSS THIS FURTHER. CM WILL REMAIN AVAILABLE TO ASSIST AND FOLLOW NEEDED.
--- NOTE | 2021-02-13 15:15 | NUR ---
THIS ENVIRONMENTAL TECH IS IN AGREEMENT WITH DOCUMENTED EVALUATION BY MIRTHA MONTES FOR THIS DAY. ANDRIY MEZAT
[2021-02-13 16:01] LABS: HEMATOCRIT 27.7 % (42.0-52.0); HEMOGLOBIN 9.1 gm/dL (14.0-18.0); MCH 28.6 pg (26.0-34.0); MCHC 32.8 g/dL (28.0-37.0); MPV 6.8 fl. (7.2-11.1); RBC 3.18 mil/uL (4.50-6.00); RDW-CV 18.1 % (10.5-14.5); WBC 22.5 thou/uL (4.0-11.0)
[2021-02-13 20:00] VITALS: BP 148/88
--- NOTE | 2021-02-13 20:02 | NUR ---
PT HAD EMERGENCY PROCEEDURE DUE TO BLEEDING IN HIS RIGHT GROIN HEMATOMA. VSS AFEBRILE. PT HAS SALINE LOCK IN HIS RIGHT FOREARM. WILL CONTINUE TO MONITOR PLAN OF CARE. PT IS HAVING BLODDY STOOLS, DR. CARRIE WRIGHT IT IS FROM ALL THE SUPPOSITORIES AND ENEMAS, CAUSING HIM TO BLEED. WILL COINTINUE TO MONITOR PLAN OF CARE.
[2021-02-14] VITALS: BP 170/84
--- NOTE | 2021-02-14 04:31 | NUR ---
PATIENT SLEPT WELL DURING THIS SHIFT. PT ALERT/ORIENTED X2, CONFUSED/FORGETFUL. PT INCONTINENT OF BOWEL/BLADDER. PT HAD ONE LARGE BOWEL MOVEMENT WITH URINE MIXED WITH IT ON PAD. STOOL WAS BROWNISH/RED; NO CLOTS NOTED. PT HAD SECOND INCONTINECE WITH MININUM AMOUNT OF BLOOD MIXED WITH DARK BROWN STOOL. STOOL WAS "STUCK" TO THE SKIN IF PT HAD BEEN TAKING IRON SUPPLEMENTS. PT WITH ANTIBIOTICS INFUSING PER DR ORDER. O2 @ 2L PER NASAL CANNULA. PT TURNED Q2H PER PROTOCAL. FREQUENTLY USED ITEMS AND CALL LIGHT WITHIN REACH. SIDERAILS UPX3 AND BED ALARM ON. WILL CONTINUE TO MONITOR.
[2021-02-14 04:53] VITALS: BP 153/95
[2021-02-14 05:12] LABS: HEMATOCRIT 25.3 % (42.0-52.0); HEMOGLOBIN 8.3 gm/dL (14.0-18.0); MCH 28.7 pg (26.0-34.0); MCHC 32.9 g/dL (28.0-37.0); MCV 87.4 fL (80.0-100.0); MPV 7.3 fl. (7.2-11.1); RBC 2.89 mil/uL (4.50-6.00); RDW-CV 17.7 % (10.5-14.5)
[2021-02-14 05:41] LABS: CALCIUM 7.9 mg/dL (8.5-10.1); CREATININE 1.1 mg/dL (0.6-1.3); MAGNESIUM 1.9 mg/dL (1.8-2.4); POTASSIUM 3.4 mmol/L (3.5-5.1)
[2021-02-14 08:00] VITALS: BP 152/92
--- NOTE | 2021-02-14 18:30 | NUR ---
PATIENT RESTING IN BED. SINUS RYTHM. IV TO RIGHT FOREARM, SALINE LOCKED, PATENT. BLOODY STOOLS X2. GI FOLLOWING PATIENT. 95% ON 2L NASAL CANNULA. ALERT AND ORIENTED X2. INCONTINENT OF BOWEL AND URINE. Q2 TURNS. SKIN TEAR TO LEFT CHEEK. "SECOND SKIN" TO COCYX. GAUZE TO RIGHT GROIN. BED IN LOW/LOCKED POSITION. CALL LIGHT WITHIN REACH. ALL QUESTIONS AND CONCERNS ADDRESSED.
[2021-02-14 19:28] VITALS: BP 177/108
[2021-02-14 20:30] VITALS: BP 163/106
[2021-02-15] VITALS: BP 155/89
[2021-02-15 04:24] LABS: HEMATOCRIT 24.8 % (42.0-52.0); HEMOGLOBIN 8.2 gm/dL (14.0-18.0); MCH 28.9 pg (26.0-34.0); MCHC 33.1 g/dL (28.0-37.0); MCV 87.5 fL (80.0-100.0); MPV 7.1 fl. (7.2-11.1); RBC 2.84 mil/uL (4.50-6.00); RDW-CV 18.1 % (10.5-14.5); WBC 16.3 thou/uL (4.0-11.0)
[2021-02-15 04:47] VITALS: BP 180/100
[2021-02-15 04:58] LABS: ALBUMIN 1.9 g/dL (3.4-5.0); CALCIUM 7.7 mg/dL (8.5-10.1); CREATININE 1.1 mg/dL (0.6-1.3); MAGNESIUM 1.9 mg/dL (1.8-2.4); TOTAL BILIRUBIN 0.4 mg/dL (<0.1-1.0); TOTAL PROTEIN 5.5 g/dL (6.4-8.2)
--- NOTE | 2021-02-15 06:15 | NUR ---
PT A&O X2-3, CONFUSED AT TIMES. INCONTINENT. BOWEL PREP ALMOST DONE, LIGHT BROWN LIQUIDY STOOL NOTED. NPO SINCE MIDNIGHT FOR COLONOSCOPY. BED ALARM ON FOR SAFETY. WILL CONTINUE TO MONITOR.
[2021-02-15 19:31] VITALS: BP 153/96
[2021-02-15 20:00] VITALS: BP 127/72
[2021-02-16 00:43] VITALS: BP 132/112
[2021-02-16 04:00] VITALS: BP 138/76
[2021-02-16 04:26] LABS: HEMATOCRIT 24.1 % (42.0-52.0); HEMOGLOBIN 7.8 gm/dL (14.0-18.0); MCH 28.6 pg (26.0-34.0); MCHC 32.5 g/dL (28.0-37.0); MPV 7.8 fl. (7.2-11.1); RBC 2.74 mil/uL (4.50-6.00); RDW-CV 18.2 % (10.5-14.5)
[2021-02-16 04:53] LABS: ALBUMIN 1.9 g/dL (3.4-5.0); CALCIUM 7.6 mg/dL (8.5-10.1); CREATININE 1.1 mg/dL (0.6-1.3); MAGNESIUM 1.9 mg/dL (1.8-2.4); POTASSIUM 3.1 mmol/L (3.5-5.1); TOTAL BILIRUBIN 0.5 mg/dL (<0.1-1.0); TOTAL PROTEIN 5.3 g/dL (6.4-8.2)
--- NOTE | 2021-02-16 05:29 | NUR ---
PT SLEPT MOST OF SHIFT. ASSESSMENT DOCUMENTED. MEDS GIVEN PER E-SEP. IV PATENT. NO REPORTS OF PAIN. PT INCONTINENT THROUGH SHIFT. FALL PRECAUTIONS IN PLACE. WILL CONTINUE WITH PLAN OF CARE.
[2021-02-16 10:33] LABS: URINE BILIRUBIN NEGATIVE (Negative); URINE BLOOD TRACE (Negative); URINE CLARITY CLEAR; URINE COLOR YELLOW; URINE GLUCOSE-RANDOM NEGATIVE (Negative); URINE KETONES NEGATIVE (Negative); URINE LEUKOCYTES-REFLEX TRACE (Negative); URINE NITRITE-REFLEX NEGATIVE (Negative); URINE PROTEIN 2+ (Negative); URINE SPECIFIC GRAVITY >= 1.030 (1.005-1.030); URINE UROBILINOGEN 0.2 E.U./dl (0.2-1.0)
[2021-02-16 10:41] LABS: BACTERIA-REFLEX 1-9 Few /HPF (None Seen); COARSE GRANULAR CASTS 0-3 Few /LPF (None Seen); MUCUS 0-3 Light strn/LPF (None Seen); SQUAMOUS 4-10 Moderate /LPF (0-3); URIC ACID CRYSTALS >10 Many /LPF (None Seen); URINE RBC 0-2 Rare /HPF (0-2); URINE WBC-REFLEX 0-5 Rare /HPF (0-5)
--- NOTE | 2021-02-16 11:36 | NUR ---
WOUND NURSE: PATIENT SEEN FOR FOLLOW UP ASSESSMENT PERTAINING TO BLE VENOUS LEG ULCERS. AFFECTED AREAS OF BOTH LEGS CONTINUE TO MEASURE 21 X 16 X 0.1 CM, BUT FEWER SMALL ERODED AREAS PRESENT AND WITH LESS DRAINAGE. NO PERIPHERAL EDEMA AND PEDAL PULSES ARE PALPABLE. WOUND CARE PROVIDED PRESCRIBED. SACRUM WITH SMAL IRREGULAR OPEN AREA NOW MEASURING 1.5 X 1.0 X 0.1 CM. CONTAINS PINK, NONGRANULATING TISSUE IN THE WOUND BED AND SCANT SEROUS DRAIANGE. WOUND CARE WAS ADMINISTERED PRESCRIBED. PATIENT SEEMS MILDLY AND PLEASANTLY CONFUSED AND IS NOT TEACHEABLE AT THIS TIME, HE DOESNT FOLLOW INSTRUCTIONS TO PROMOTE HEALING HE WAS PREVIOUSLY PROVIDED.
[2021-02-16 12:00] VITALS: BP 131/85
--- NOTE | 2021-02-16 13:32 | NUR ---
PLAN OF CARE: PHYSICIAN INFORMS THAT PT IS NOT MEDICALLY STABLE TO D/C AT THIS TIME. PT/OT F/U NEEDED TO ASSIST WITH DECIDING D/C PLAN FOR PT. INPT ARU HERE FOLLOWING PT, BUT DO NOT BELIEVE THAT THE PT IS APPROPRIATE FOR ARU AT THIS TIME AND MAY DECLINE PT, HE APPEARS TOO WEAK TO DO THE NEEDED THERAPIES. PT IS OUT OF SNF DAYS AND ONLY OTHER OPTION IS LTC. CM TO SPEAK TO THE PT AND HIS SPOUSE TO DISCUSS THIS. CM WILL REMAIN AVAILABLE TO ASSIST AND FOLLOW NEEDED.
[2021-02-16 14:21] LABS: CALCIUM 7.9 mg/dL (8.5-10.1); CREATININE 1.2 mg/dL (0.6-1.3); POTASSIUM 3.6 mmol/L (3.5-5.1)
[2021-02-16 16:00] VITALS: BP 127/67
[2021-02-16 20:00] VITALS: BP 167/98
[2021-02-17] VITALS: BP 180/100
[2021-02-17 04:05] VITALS: BP 175/97
--- NOTE | 2021-02-17 05:11 | NUR ---
PT ALERT AND PLEASANT. ASSIST WITH REPOSITIONING. DRSG TO MARCELA LOWER LEGS, ELEVATED ON PILLOW. OPEN AREA NOTED TO BUTTOCK AND MOISTURE DERMATITIS TO SCROTUM AND PERIAREA. HOB ELEVATED, NO SOA NOTED, O2 AT 2L/NC. TELEMETRY ON SHOWING SR. HS GOALS OF REST AND SAFETY ACHIEVED. HOURLY ROUNDING OBSERVED.
[2021-02-17 08:00] VITALS: BP 145/82
[2021-02-17 12:00] VITALS: BP 152/89
--- NOTE | 2021-02-17 15:32 | NUR ---
PLAN OF CARE: PHYSICIAN INFORMS OF PLAN FOR PT TO BE MEDICALLY STABLE TO D/C IN 1-2 DAYS. PT NEEDS CONTINUED PT/OT FOR STRENGTHING AND PT DOES NOT HAVE MEDICARE SNF DAYS AVAILABLE. INPT REHAB HERE CONTINUES TO FOLLOW PT, BUT BELIEVE THAT THE PT MAY BE 'TOO LOW LEVEL TO PARTICIPATE'. PT'S ONLY OTHER OPTION IS LTC. CM SPOKE TO THE PT AND HIS SPOUSE TO DISCUSS THIS AND PT AND SPOUSE DO NOT WANT LTC. CM WILL REMAIN AVAILABLE TO ASSIST AND FOLLOW NEEDED.
[2021-02-17 16:00] VITALS: BP 159/91
--- NOTE | 2021-02-17 19:00 | NUR ---
PATIENT RESTING IN BED. ALERT AND ORIENTED X1-2. WOUND TO SACRAL/BUTTOCK. DRESSING CHANGED TODAY BY WOUND CARE NURSE. INCONTINENT OF URINE AND BOWEL. IV TO RIGHT FOREARM, SALINE LOCKED, PATENT. BLE VASCULAR WOUNDS, WITH DRESSINGS C/D/I. REMAINS ON 2L NASAL CANNULA, SAT 97%. BED IN LOW/LOCKED POSITION. CALL LIGHT WITHIN REACH. NO QUESTIONS OR CONCERNS VOICED.
[2021-02-17 20:21] VITALS: BP 161/80
[2021-02-18 01:06] VITALS: BP 167/95
[2021-02-18 04:57] VITALS: BP 200/97
--- NOTE | 2021-02-18 05:13 | NUR ---
PT A&O 3-4, FORGETFUL, VSS ON ROOM AIR. TRANSFER WITH LIFT. IV FLUIDS INFUSING ORDERED. PT REPOSTIONED Q2H. PT MED/SURG STATUS. NO CO PAIN OR DISCOMFORT. ASSESSMENTS AND HOURLY ROUNDINGS COMPLETE, WILL CONTINUE TO MONITOR.
[2021-02-18 08:00] VITALS: BP 167/86
[2021-02-18 09:18] LABS: ABSOLUTE EOSINOPHILS 0.1 thou/uL (0.0-0.7); ABSOLUTE LYMPHOCYTES 1.4 thou/uL (0.8-5.3); ABSOLUTE MONOCYTES 1.1 thou/uL (0.0-1.2); ABSOLUTE NEUTROPHILS 12.7 thou/uL (1.6-8.1); BASOPHILS 0.1 %; EOSINOPHILS 0.4 %; HEMATOCRIT 23.6 % (42.0-52.0); HEMOGLOBIN 7.7 gm/dL (14.0-18.0); LYMPHOCYTES 9.2 %; MCHC 32.9 g/dL (28.0-37.0); MCV 88.4 fL (80.0-100.0); MPV 7.5 fl. (7.2-11.1); NUCLEATED RBCS 0 /100WBC; PLATELET COUNT* 248 thou/uL (150-400); POLYS 83.3 %; RBC 2.66 mil/uL (4.50-6.00); RDW-CV 18.3 % (10.5-14.5); WBC 15.2 thou/uL (4.0-11.0)
[2021-02-18 09:45] LABS: ALBUMIN 1.9 g/dL (3.4-5.0); CALCIUM 7.7 mg/dL (8.5-10.1); CREATININE 1.1 mg/dL (0.6-1.3); POTASSIUM 3.1 mmol/L (3.5-5.1); TOTAL BILIRUBIN 0.6 mg/dL (<0.1-1.0); TOTAL PROTEIN 5.2 g/dL (6.4-8.2)
--- NOTE | 2021-02-18 10:07 | NUR ---
CM UPDATE: CM INFORMED BY IN ARU LIAISION THAT ARU WILL CONTINUE TO FOLLOW PT, BUT WOULD LIKE TO SEE THE PT INCREASE HIS ACTIVITY PRIOR TO ACCEPTING HIM. IN ARU LIAISON INFORMS THAT THE PT MAY BE ABLE TO BE ACCEPTED AT LOWER LEVEL FOR THERAPIES. CM WILL REMAIN AVAILABLE TO ASSIST AND FOLLOW NEEDED.
[2021-02-18 12:02] VITALS: BP 145/75
[2021-02-18] MEDS ORDERED: METOPROLOL SUCC25 M1 PO (12:15)
[2021-02-18] MEDS ORDERED: NEXIUM40 MG PO (12:15)
[2021-02-18] MEDS ORDERED: COZAAR 50 MG TA50 M1 PO (12:15)
--- NOTE | 2021-02-18 15:03 | NUR ---
PT BEING TRANSFERED TO 3, PT HAS SALINE LOCK IN HIS RIGHT FORARM FLUSHES WELL. REPORT GIVEN TO AVRIL TOURE. PT REMAINS INCONTINENT OF BOWEL AND BLADDER. PT HAS BEEN TURNED EVERY 2-3 HOURS PER PROTOCOL. PT HAS WOUND ON HIS COCCYX, THAT HAS BEEN DOCUMENTED ON.
[2021-02-18 22:30] VITALS: BP 193/116
[2021-02-19 00:17] VITALS: BP 156/94; BP 456/94
--- NOTE | 2021-02-19 07:52 | NUR ---
PATIENT SLEPT MOST OF THE NIGHT. IV REMAINS SALINE LOCKED. PATIENT WAS GIVEN HYDRALZINE ONCE FOR ELEVATED BP WITH GOOD RESULTS. PATIENT IS SUPPOSED TO DISCHARGE TO REHAB TODAY. WILL CONTINUE TO MONITOR.
[2021-02-19 08:00] VITALS: BP 188/93
[2021-02-19 09:27] VITALS: BP 188/93
--- NOTE | 2021-02-19 13:08 | NUR ---
AM ASSESSMENT AND VITAL SIGNS COMPLETED DOCUMENTED. PT IS MAX ASSIST/ LIFT WITH TRANSFERS. PT REQUIRES ASSISTANCE WITH ALL ADL'S AND IS INCONTINENT OF BOWEL AND BLADDER. FALL PRECAUTIONS AND HOURLY ROUNDING CONTINUE. PLAN TO DISCHARGE TO ACUTE REHAB CENTER LATER TODAY.
== END 2021-02-19 15:40 | DRG 871 ==
LOC: M.ERS 03:40 → M.2W 06:13 → M.3W 06:13 → M.TBA-ER 06:13 → M.2W 06:13 → M.3W 02-18 16:51
PROVIDERS: Internal Medicine; Personal Emergency Response Attendant; Registered Nurse; ADMIT Internal Medicine; ATTEND Internal Medicine
DX: A41.9 Sepsis, unspecified organism (principal); J69.0 Pneumonitis due to inhalation of food and vomit; G92 Toxic encephalopathy; R53.2 Functional quadriplegia; I50.33 Acute on chronic diastolic (congestive) heart failure; E43 Unspecified severe protein-calorie malnutrition; J96.01 Acute respiratory failure with hypoxia; I21.4 Non-ST elevation (NSTEMI) myocardial infarction; E87.0 Hyperosmolality and hypernatremia; I47.1 Supraventricular tachycardia; I13.0 Hypertensive heart and chronic kidney disease with heart failure and stage 1 through stage 4 chronic kidney disease, or unspecified chronic kidney disease; I48.91 Unspecified atrial fibrillation; M19.90 Unspecified osteoarthritis, unspecified site; E87.6 Hypokalemia; E88.09 Other disorders of plasma-protein metabolism, not elsewhere classified; I87.8 Other specified disorders of veins; K56.41 Fecal impaction; I72.4 Aneurysm of artery of lower extremity; M06.9 Rheumatoid arthritis, unspecified; I25.10 Atherosclerotic heart disease of native coronary artery without angina pectoris; I87.2 Venous insufficiency (chronic) (peripheral); D47.3 Essential (hemorrhagic) thrombocythemia; K64.8 Other hemorrhoids; K57.30 Diverticulosis of large intestine without perforation or abscess without bleeding; D50.9 Iron deficiency anemia, unspecified; N40.0 Benign prostatic hyperplasia without lower urinary tract symptoms; N18.9 Chronic kidney disease, unspecified; Z20.822 Contact with and (suspected) exposure to COVID-19; Z85.46 Personal history of malignant neoplasm of prostate; Z99.3 Dependence on wheelchair; Z68.32 Body mass index [BMI] 32.0-32.9, adult

== ENCOUNTER 2021-02-19 12:17 | Inpatient (IN) | payer MEDICARE ==
[~2021-02-19] VITALS: Ht 175.3 cm; Wt 84.9 kg
[~2021-02-19 12:17] MED LIST changes: +COZAAR 50 MG TA50 M1 PO; +NEXIUM40 MG PO
--- NOTE | 2021-02-19 18:33 | NUR ---
75 YEAR OLD MALE PATIENT ADMITTED TO ROOM 324 WITH ENCEPHALOPATHY. PT ORIENTED TO ROOM, CALL LIGHT AND BED CONTROLS. FALL PRECAUTIONS AND HORLY ROUNDING STARTED.
[2021-02-19 20:00] VITALS: BP 169/94
--- NOTE | 2021-02-20 05:02 | NUR ---
ASSUMED PT CARE AT 1930. PT ALERT AND ORIENTED X4, POLITE AND COOPERATIVE WITH CARES. PT INCONTINENT OF URINE AND STOOL. NYSTATIN AND ZINC OINTMENT TO BEATRICE AREA. COMPRESSION WRAPS TO BILATERAL LE. DENIES PAIN. SATS 97% ON RA. CALL LIGHT IN REACH, BED ALARM ON FOR SAFETY. HOURLY ROUNDING IN PROGRESS, WILL CONTINUE TO MONITOR.
[2021-02-20 06:04] LABS: HEMATOCRIT 25.2 % (42.0-52.0); HEMOGLOBIN 8.4 gm/dL (14.0-18.0); MCH 29.2 pg (26.0-34.0); MCHC 33.5 g/dL (28.0-37.0); MCV 87.2 fL (80.0-100.0); MPV 7.1 fl. (7.2-11.1); RBC 2.89 mil/uL (4.50-6.00); RDW-CV 18.7 % (10.5-14.5); WBC 13.8 thou/uL (4.0-11.0)
[2021-02-20 06:12] LABS: CALCIUM 7.8 mg/dL (8.5-10.1); CREATININE 1.1 mg/dL (0.6-1.3); POTASSIUM 3.2 mmol/L (3.5-5.1)
[2021-02-20 07:20] VITALS: BP 126/69
--- NOTE | 2021-02-20 11:14 | NUR ---
Nutrition: Pt admitted to rehab with encephalopathy. RD saw pt on other unit. Wt has been fluctuating, per [employer]. Currently 222#. Pt has been eating well on heart healthy diet. H/o prostate cancer, CKD, CHF. +BMs. Labs: Na 146, K+ 3.2, BG WNL, alb 1.9, prealb 25.9. No N/V. GOALS: >75% of meals consumed. Low risk.
--- NOTE | 2021-02-20 17:07 | NUR ---
PATIENT COMPLETED THERAPIES THIS SHIFT ORDERED. UP WITH NATALIE LIFT. INCONTINENT OF URINE, NO STOOL NOTED. CREAM APPLIED TO BEATRICE AREA ORDERED. ASSITANCE WITH MEAL SET UP. UP TO CHAIR THIS SHIFT FOR LUNCH AND OT.
[2021-02-20 20:00] VITALS: BP 139/81
--- NOTE | 2021-02-21 06:03 | NUR ---
ASSUMED PT CARE AT 1930. PT ALERT AND ORIENTED X4, POLITE AND COOPERATIVE WITH CARES. PT INCONTINENT OF URINE SEVERAL TIMES OVERNIGHT. NYSTATIN AND ZINC OINTMENT TO BEATRICE AREA. COMPRESSION WRAPS TO BILATERAL LE. DENIES PAIN. SATS 97% ON RA. CALL LIGHT IN REACH, BED ALARM ON FOR SAFETY. HOURLY ROUNDING IN PROGRESS, WILL CONTINUE TO MONITOR.
[2021-02-21 08:18] VITALS: BP 141/61
--- NOTE | 2021-02-21 16:36 | NUR ---
PT UP WITH LIFT TO CHAIR. ZINC WITH NYSTATIN CREAM APPLIED TO BEATRICE AREA. DRESSINGS TO BLE C/D/I. HERE TO VISIT. PT CONFUSED AND FORGETFUL AT TIMES. CALL LIGHT IN REACH. FALL PRECAUTIONS IN PLACE.
[2021-02-21 19:00] VITALS: BP 154/65
--- NOTE | 2021-02-22 05:07 | NUR ---
ASSUMED PT CARE AT 1930. PT ALERT AND ORIENTED TO SELF, OCCASIONALLY FORGETFUL. ZINC/NYSTATIN TO GROIN REDNESS. INCONTINENT OF URINE SEVERAL TIMES OVERNIGHT. NO STOOL THIS SHIFT. DENIES PAIN. CALL LIGHT IN REACH, BED ALARM ON FOR SAFETY. HOURLY ROUNDING IN PROGRESS, WILL CONTINUE TO MONITOR.
[2021-02-22 07:12] VITALS: BP 153/82
--- NOTE | 2021-02-22 16:44 | NUR ---
PT INCONT OF URINE. DRESSINGS TO BLE C/D/I. NYSTATIN AND ANTIFUNGAL CREAM APPLIED TO GROIN. FORGETFUL AND CONFUSED. CALL LIGHT IN REACH. FALL PRECAUTIONS IN PLACE.
[2021-02-22 21:00] VITALS: BP 172/90
--- NOTE | 2021-02-23 05:07 | NUR ---
ASSUMED CARE AT 1920. ALERT AND ORIENTED X 1. FORGEFUL AND CONFUSED. DENIED ANY PAIN. DRSG TO LEGS INTACT. CREAMS APPLIED TO EXCORIATED COCCYX AND GROIN. URINARY INCONTINENCE. LOW AIR LOSS MATTRESS. SLEPT MOST OF THE NIGHT. CALL LIGHT IN REACH AND BED ALARM ON.
[2021-02-23 07:37] VITALS: BP 157/92
--- NOTE | 2021-02-23 14:53 | NUR ---
INITIAL ASSESSMENT: PATIENT ADMITTED TO THE [facility] ACUTE REH[facility] UNIT ON 02/19/21 WITH A DIAGNOSIS OF ENCEPHALOPATHY. PT IS KNOWN TO THIS CM FROM PREVIOUS ACUTE ADMISSIONS. PT IS ALERT BUT FORGETFUL. PRIOR TO ADMIT PT RESIDED AT HOME WITH SPOUSE AND SHE WAS ASSISTING THE PT WITH ALL CARES AT HOME. PT WAS ON-SERVICE WITH [facility] PRIOR TO ADMIT, BUT [facility] INFORMS THAT THEY WILL NOT ACCEPT THE PT FOR HH SERVICES AT D/C. PT USED A W/C FOR MOBILITY PRIOR TO ADMIT, BUT HAD BEEN BEDBOUND MOST RECENTLY. PT HAS PAST SNF HX AT [facility] (50 DAYS), AND [facility] (40 DAYS) AND IS UNABLE TO GO TO SNF AT / HE HAS USED ALL OF HIS MEDICARE SKILLED DAYS FOR THE YEAR. CM ORIENTED THE PT AND HIS SPOUSE TO THE IN ARU AND PROCESSES, RESIDENTS RIGHTS INFO, TEAM CONFRENCE, AND TO THE ROLE OF CM. CM WILL REMAIN AVAILABLE TO ASSIST AND FOLLOW NEEDED.
--- NOTE | 2021-02-23 16:17 | NUR ---
WOUND NURSE: PATIENT SEEN TO ADDRESS VENOUS LEG ULCERS TO BLE. INSIGNIFICANT CHANGE COMPARED TO ONE WEEK AGO. DR. GARY WAS CONSULTED WHEN PATIENT ON ACUTE FLOOR. SHE WAS RECONSULTED TODAY TO READDRESS THESE WOUNDS. PRESENTS WITH MULTIPLE SHALLOW LESIONS ON BILATERAL LOWER EXTREMITIES. REMAINING SKIN RED AND THIN AND FRIABLE. SMALL AMOUNTS OF PURULENT DRAINAGE PREDOMINANT ON LLE, SO THIS LEG CULTURED. WOUND CARE WAS PROVIDED PRESCRIBED. PATIENT REINSTRUCTED ON MEASURES TO PROMOTE HEALING AND PREVENT COMPLICATIONS.
[2021-02-23 19:00] VITALS: BP 166/98
[2021-02-23 19:32] LABS: URINE BILIRUBIN NEGATIVE (Negative); URINE BLOOD TRACE (Negative); URINE CLARITY CLEAR; URINE COLOR YELLOW; URINE GLUCOSE-RANDOM NEGATIVE (Negative); URINE KETONES NEGATIVE (Negative); URINE LEUKOCYTES NEGATIVE (Negative); URINE NITRITE NEGATIVE (Negative); URINE PROTEIN 1+ (Negative); URINE UROBILINOGEN 0.2 E.U./dl (0.2-1.0)
[2021-02-23 19:33] LABS: HEMATOCRIT 27.3 % (42.0-52.0); HEMOGLOBIN 8.8 gm/dL (14.0-18.0); MCH 28.3 pg (26.0-34.0); MCHC 32.2 g/dL (28.0-37.0); MCV 87.7 fL (80.0-100.0); MPV 7.6 fl. (7.2-11.1); RBC 3.11 mil/uL (4.50-6.00); RDW-CV 19.7 % (10.5-14.5); WBC 11.4 thou/uL (4.0-11.0)
[2021-02-23 19:43] LABS: CALCIUM 8.2 mg/dL (8.5-10.1); POTASSIUM 3.3 mmol/L (3.5-5.1)
[2021-02-23 19:47] LABS: ALBUMIN 2.3 g/dL (3.4-5.0); TOTAL BILIRUBIN 1.1 mg/dL (<0.1-1.0)
--- NOTE | 2021-02-24 04:46 | NUR ---
ASSUMED PT CARE AT 1930. PT ALERT AND ORIENTED X4, POLITE AND COOPERATIVE WITH CARES. PT LUCID AND CHATTY UPON INITIAL ASSESSMENT AND WHEN AWAKENED FOR TURNS AND PERICARES. DENIED PAIN. DRESSING TO BLE INTACT. ZINC CREAM AND NYSTATIN APPLIED TO EXCORIATED COCCYX AND GROIN. INCONTINENT OF BOWEL AND BLADDER. LOW AIR LOSS MATTRESS. SLEPT MOST OF THE NIGHT. CALL LIGHT IN REACH, BED ALARM ON FOR SAFETY. HOURLY ROUNDING IN PROGRESS, WILL CONTINUE TO MONITOR.
[2021-02-24 07:30] VITALS: BP 176/79
--- NOTE | 2021-02-24 17:17 | NUR ---
PATIENT COMPLETED THERAPIES ORDERED. PATIENT UP TO CHAIR THIS MORNING INTO AFTERNOON, WAFFLE CUSHION IN PLACE AND REPOSITIONED FREQUENTLY. TURNED Q2. INCONTINENT OF LARGE AMOUNTS OF URINE, INCONTINENT OF STOOL X 2. AM LABS AND TEAM MEETING TOMMORROW.
[2021-02-24 19:00] VITALS: BP 154/93
--- NOTE | 2021-02-25 04:47 | NUR ---
ASSUMED PT CARE AT 1930. PT ALERT AND ORIENTED X4, POLITE AND COOPERATIVE WITH CARES. DENIED PAIN. DRESSING TO BLE INTACT. ZINC CREAM AND NYSTATIN POWDER APPLIED TO COCCYX AND GROIN. INCONTINENT OF URINE SEVERAL TIMES OVERNIGHT. TURNED Q2. LOW AIR LOSS MATTRESS. SLEPT MOST OF NOC. CALL LIGHT IN REACH, BED ALARM ON FOR SAFETY. HOURLY ROUNDING IN PROGRESS, WILL CONTINUE TO MONITOR.
[2021-02-25 05:37] LABS: HEMATOCRIT 26.4 % (42.0-52.0); HEMOGLOBIN 8.8 gm/dL (14.0-18.0); MCH 29.5 pg (26.0-34.0); MCHC 33.2 g/dL (28.0-37.0); MCV 88.8 fL (80.0-100.0); MPV 7.7 fl. (7.2-11.1); RBC 2.97 mil/uL (4.50-6.00); RDW-CV 20.3 % (10.5-14.5); WBC 9.3 thou/uL (4.0-11.0)
[2021-02-25 05:43] LABS: CALCIUM 8.1 mg/dL (8.5-10.1); POTASSIUM 3.5 mmol/L (3.5-5.1)
[2021-02-25 07:30] VITALS: BP 160/90
--- NOTE | 2021-02-25 16:23 | NUR ---
PATIENT COMPLETED THERAPIES THIS SHIFT ORDERED. UP TO CHAIR WITH NATALIE LIFT. INCONTINENT FREQUENTLY OF URINE, NO BM NOTED THIS SHIFT. CREAM AND POWDER TO BEATRICE AREA ORDERED. LIAM FROM WOUND CARE NOTIFIED OF RIGHT FA WOUND, IV WAS PREVIOUSLY IN PLACE THERE AND DC'D TODAY. MEPILEX IN PLACE. TEAM MEETING TODAY, PATIENT IS A RETEAM.
[2021-02-25 19:00] VITALS: BP 149/99
--- NOTE | 2021-02-26 05:06 | NUR ---
ASSUMED CARES AT 1920. ALERT AND ORIENTED BUT FORGETFUL AT TIMES. DENIED ANY PAIN. URINARY INCONTINENCE. ZINC/NYSTATIN OINTMENTS TO REDNESS ON GROIN AND COCCYX. PT REPOSITIONED IN BED. SLEPT MOST OF THE NIGHT. CALL LIGHT IN REACH AND BED ALARM ON.
[2021-02-26 07:50] VITALS: BP 144/95
--- NOTE | 2021-02-26 09:38 | NUR ---
WOUND NURSE: PATIENT SEEN FOR DRESSING CHANGE THIS MORNING TO BLE. BILATERAL LES WITH MULTIOPLE SHALLOW EROSIONS NOTED AND WITH SMALL AMOUNTS OF YELLOWISH OPAQUE DRAINAGE. PATIENT REPRORTS LESIONS ARE TENDER TO TOUCH. WOUND CARE PROVIDED PRESCRIBED. CULTURE RESULTS PRESENT, BUT SENSITIVITY NOT YET REPORTED.
--- NOTE | 2021-02-26 16:52 | NUR ---
PATIENT COMPLETED THERAPIES THIS SHIFT ORDERED. NATALIE LIFT TO CHAIR, TURN Q2 WHILE IN BED. WOUND CARE HERE THIS AM AND MARCELA LE'S DRESSING CHANGED. ID CONSULTED FOR MRSA AND YEAST IN MARCELA LE WOUNDS PER DR. LOMELI'S ORDERS. DR. BECKER FROM ID STATED SHE WOULD ORDER PO ABX FOR PATIENT. INCONTINENT OF URINE, NO BM NOTED THIS SHIFT. ISOLATION IN PLACE PER PROTOCOL.
[2021-02-26 20:12] VITALS: BP 150/92
--- NOTE | 2021-02-27 06:36 | NUR ---
ASSUMED CARES AT 1920. ALERT AND ORIENTED. PLEASANT. SLIGHTLY FORGETFUL AND CONFUSED AT TIMES. CONTACT ISOLATION FOR MRSA IN LEG WOUNDS. COMPRESSION DRSG TO BLE INTACT. SPOKE WITH ID AND ORDERED DOXYCYCLINE 100 MG BID X 7 DAYS. URINARY INCONTINENCE. DENIED ANY PAIN. REPOSITIONED ONTO SIDES IN BED. CALL LIGHT IN REACH AND BED ALARM ON.
[2021-02-27 07:57] VITALS: BP 141/89
--- NOTE | 2021-02-27 16:24 | NUR ---
TEAM CONFRENCE MEETING HELD THIS WEEK. PLAN TO RE-TEAM AND CONTINUE THERAPIES FOR ANOTHER WEEK. PT AND FAMILY IN AGREEMENT. CM WILL REMAIN AVAILABLE TO ASSIST AND FOLLOW NEEDED.
--- NOTE | 2021-02-27 17:19 | NUR ---
PT WORKED WITH THERAPIES. UP WITH MAX ASSIST X2 OR NATALIE LIFT. INCONTINENT OF URINE. DECREASED CONFUSION. DRESSINGS TO BLE C/D/I. BANDAGE TO RUE C/D/I. HERE TO VISIT. CALL LIGHT IN REACH. FALL PRECAUTIONS IN PLACE.
[2021-02-27 21:30] VITALS: BP 146/90
[2021-02-27 21:50] VITALS: BP 162/90
--- NOTE | 2021-02-28 04:19 | NUR ---
PT A&OX4, VSS ON ROOM AIR, PT ON LOW AIR LOSS MATTRESS, REPOSITIONED Q2H, ISOLATAION MAINTAINED. PT SLEEPING WELL. NO CO PAIN OR DISCOMFORT. WILL CONTINUE TO MONITOR.
--- NOTE | 2021-02-28 12:45 | NUR ---
PATIENT POTASSIUM 3.5 ON 02/25. NO LABS DRAWN SINCE. DR. RAYMOND ORDERED BMP TO BE DRAWN IN AM.
--- NOTE | 2021-02-28 16:59 | NUR ---
PATIENT A&O BUT FORGETFUL. HRR, LSCTA. BUTTOCKS PINKISH BUT NO OPEN AREAS. PATIENT IN ISOLATION FOR MRSA IN BILATERAL LOWER LEGS. PATIENT GETTING MEDICATION ON FOLDS FOR IRRITATION OF SKIN. PATIENT TURNED Q2 HOURS. DAUGHTER TO VISIT PT TODAY. NO BM TODAY. PATIENT IN BED, IN LOWEST LOCKED POSITION, CALL LIGHT IN REACH.
[2021-02-28 20:09] VITALS: BP 146/91
--- NOTE | 2021-03-01 04:09 | NUR ---
PT A&OX4, VSS ON ROOM AIR, REPOSITIONED Q2H, INCONTINENT. NO CO PAIN OR DISCOMFORT, ISOLATION MAINTAINED. PT SLEEPING WELL, WILL CONTINUE TO MONITOR.
[2021-03-01 07:57] LABS: CALCIUM 7.9 mg/dL (8.5-10.1)
[2021-03-01 08:00] VITALS: BP 144/96
[2021-03-01 08:02] LABS: POTASSIUM 2.6 mmol/L (3.5-5.1)
--- NOTE | 2021-03-01 18:10 | NUR ---
PATIENT RESTING IN BED, EATING DINNER. POTASSIUM THIS MORNING 2.6, ELECTROLYTE PROTOCOL DONE. LAB REDRAWN - POTASSIUM 3.4, PROTOCOL FOLLOWED. ALERT AND ORIENTED X3-4, FORGETFUL. INCONTINENT OF BOWEL AND BLADDER. MRSA TO LOWER LEGS IN CONTACT PRECAUTIONS. EXCORIATION TO PERIANAL/COCCYX AREA. AREA CLEANED AND TREATED WITH OINTMENTS AND POWDER. LEGS WRAPPED WITH PATRICIA BANDAGES INTACT. NO C/O PAIN. BED IN LOW/LOCKED POSTION. BED ALARM ON. CALL LIGTH WITHIN REACH. NO QUESTIONS OR CONCERNS VOICED.
[2021-03-01 20:09] VITALS: BP 148/91
--- NOTE | 2021-03-02 04:11 | NUR ---
PT A&OX4, VSS ON ROOM AIR, PT REPOSITIONED Q2H, LOW AIR LOSS MATTRESS IN USE, ISOLATION MAINTAINED. PT SLEEPING WELL, WILL CONTINUE TO MONITOR.
[2021-03-02 08:29] VITALS: BP 162/106
--- NOTE | 2021-03-02 10:30 | NUR ---
WOUND NURSE: PATIENT SEEN FOR FOLLOW UP ASSESSMENT PERTAINING TO BLE WOUNDS. PRESENTS WITH MULTIPLE SHALLOW LESIONS ON BLE AND LEFT FOOT DORSAL ASPECT ONLY. PRESENTS WITH YELLOW OPAQUE AND SEROUSANGUINOUS DRAIANGE FROM OPEN LESIONS. CONTAINS RED, NONGRANULATING TISSUE IN EACH WOUND BED. NO EDEMA OR WARMTH NOTED. LEGS WITH RED DISCOLORATION. PATIENT REPORTS TENDER TO TOUCH. PATIENT INS CONTACT ISOLATION D/T RESULTS OF C&S LAST WEEK. DRESSINGS WERE CHANGED PRESCRIBED.
--- NOTE | 2021-03-02 16:50 | NUR ---
PT UP WITH NATALIE LIFT. WORKED WITH THERAPIES. CONTACT PRECAUTIONS IN PLACE FOR MRSA TO BLE WOUNDS. WOUNDS CLEANED AND DRESSED BY LIAM, WOUND CARE NURSE. ZINC AND NYSTATIN APPLIED TO PT BOTTOM AND GROIN AREAS. PRN PAIN MEDICATION GIVEN PER PT REQUEST. REQUIRES SET UP WITH MEAL TRAY BUT IS ABLE TO FEED HIMSELF. INCONTINENT OF B/B. REQUIRES FREQUENT BEATRICE CARE AND PAD CHANGES. HERE TO VISIT. CALL LIGHT IN REACH. FALL PRECAUTIONS IN PLACE.
[2021-03-02 19:00] VITALS: BP 119/69
[2021-03-03 07:30] VITALS: BP 134/96
--- NOTE | 2021-03-03 16:23 | NUR ---
CM SPOKE TO THE PT AND SPOUSE TO DISCUSS ANY QUESTIONS OR CONCERNS THAT THEY MAY HAVE FOR THIS WEEKS TEAM CONFRENCE MEETING. PT HAS NO QUESTIONS OR CONCERNS. PT'S SPOUSE INFORMS THAT SHE 'WILL NOT HAVE HIM IN A HALF-WAY AT D/C. HE IS COMING HOME AND I WILL TAKE CARE OF HIM THE SAME WAY I ALWAYS HAVE'. CM WILL REMAIN AVAILABLE TO ASSIST AND FOLLOW NEEDED.
--- NOTE | 2021-03-03 17:06 | NUR ---
PATIENT COMPLETED THERAPIES THIS SHIFT ORDERED. UP WITH NATALIE LIFT TO CHAIR. INCONTINENT OF URINE, NO BM NOTED. REMAINS IN CONTACT ISOLATION. DRESSINGS INTACT TO MARCELA ARANA'S. CREAM/POWDER APPLIED TO COCCYX ORDERED.
[2021-03-03 19:00] VITALS: BP 138/94
--- NOTE | 2021-03-04 05:11 | NUR ---
ASSUMED CARE AT 1920. ALERT AND ORIENTED BUT FORGETFUL AT TIMES. CONTACT ISOLATION. HAS URINARY INCONTINENCE BUT WAS ABLE TO USE BEDPAN FOR BM. CREAMS APPLIED TO BOTTOM AND GROIN EXCORIATION. DENIED ANY PAIN. DRSGS TO BLE INTACT. REPOSITIONED IN BED. SLEPT WELL. CALL LIGHT IN REACH AND BED ALARM ON.
[2021-03-04 05:43] LABS: HEMATOCRIT 30.7 % (42.0-52.0); HEMOGLOBIN 10.1 gm/dL (14.0-18.0); MCH 29.9 pg (26.0-34.0); MCV 90.6 fL (80.0-100.0); MPV 7.2 fl. (7.2-11.1); RBC 3.39 mil/uL (4.50-6.00); RDW-CV 20.8 % (10.5-14.5); WBC 5.7 thou/uL (4.0-11.0)
[2021-03-04 05:52] LABS: CREATININE 1.2 mg/dL (0.6-1.3); POTASSIUM 3.3 mmol/L (3.5-5.1)
[2021-03-04 07:30] VITALS: BP 114/81
--- NOTE | 2021-03-04 13:50 | NUR ---
Nutrition: follow up note. No new wts recorded. Please reweigh pt weekly. Current wt: 187#. alb 2.3, prealb 19.5, K+ 3.3. Per intake records, pt eating 0-5% of meals. RD ordered Ensure for added caloric intake. Will continue to follow weekly in team binder. Mild to moderate risk. Will f/u on wt, po intake, supplement intake 03/09/21.
--- NOTE | 2021-03-04 16:39 | NUR ---
WOUND NURSE: PATIENT SEEN FOR FOLLOW UP ASSESSMENT OF BLE LESIONS. PATIENT WITH MULTIPLE SHALLOW CIRCIFORM EROUSIONS WITHIN THE FOLLOWING MEASUREMENTS: RLE: 18 X 17 X 0.1 CM. LLE: 21 X 16 X 0.1 CM. WITHIN THIS AREA THERE IS 75% INTACT SKIN AND 25% RED, NONGRANULATING TISSUE. THERE IS A MODERATE AMOUNT OF SEROUSANGUINOUS DRAINAGE. THIS IS AN IMPROVEMENT FROM TUESDAY WHEN PURULENT DRAINAGE WAS NOTED. WOUND CARE WAS PROVIDED PRESCRIBED.
--- NOTE | 2021-03-04 18:12 | NUR ---
PATIENT COMPLETED THERAPIES THIS SHIFT ORDERED. UP WITH NATALIE LIFT, SAT IN CHAIR THIS AFTERNOON. INCONTINENT OF URINE, NO BM NOTED THIS SHIFT. WOUND CARE HERE THIS AFTERNOON AND LEG DRESSINGS CHANGED. NYSTATIN AND ZINC TO COCCYX. TURNED Q2. POTASSIUM REPLACED THIS SHIFT, LAB REDRAW ORDERED. TEAM MEETING TODAY, FAMILY TRAINING THIS WEEK.
[2021-03-04 20:15] VITALS: BP 148/99
--- NOTE | 2021-03-05 05:13 | NUR ---
ASSUMED CARES AT 1920. ALERT AND ORIENTED X 2. FORGETFUL AND CONFUSED. CONTACT ISOLATION. DRSG TO BLE INTACT. URINARY INCONTINENCE. CREAMS TO EXCORIATED BOTTOM AND GROIN. SLEPT WELL. CALL LIGHT IN REACH AND BED ALARM ON.
[2021-03-05 20:08] VITALS: BP 134/97
[2021-03-06 08:01] VITALS: BP 134/77
--- NOTE | 2021-03-06 15:18 | NUR ---
WOUND NURS: PATIENT SEEN FOR BLE DRESSING CHANGE. SLIGHT IMPROVEMENT IN LESIONS NOTED WITH SEROUSANGUINOUS DRAINAGE ON THE RLE, SEROUSANGUINOUS DRAINAGE ON THE LEFT EXCEPT FOR ONE LESION ON THE PRETIBIAL ASPECT PROXIMAL END. DRESSINGS CHANGED PRESCRIBED TO BLE.
--- NOTE | 2021-03-06 17:23 | NUR ---
PT UP WITH NATALIE LIFT. WORKED WITH THERAPIES. CONFUSED AND FORGETFUL. DRESSING TO BLE CHANGED TODAY BY WOUND CARE NURSE. ZINC AND NYSTATIN APPLIED TO BEATRICE AREA AND BOTTOM. DENIES PAIN. INCONT OF B/B. HERE TO VISIT. POSSIBLE DISCHARGE TOMARROW. CALL LIGHT IN REACH. FALL PRECAUTIONS IN PLACE.
[2021-03-06 20:14] VITALS: BP 140/92
[2021-03-07 08:00] VITALS: BP 125/86
--- NOTE | 2021-03-07 17:11 | NUR ---
PT UP WITH NATALIE LIFT. INCONTINENT OF URINE. BEATRICE CARE AND PADS CHANGED NEEDED. DRESSINGS TO BLE C/D/I. PT BECOMES VERY CONFUSED AND FORGETFUL EVENING COMES. DIFFICULT TO REDIRECT WHILE ATTEMPTING TO GET OUT OF BED. HERE TO VISIT TODAY. CALL LIGHT IN REACH. FALL PRECAUTIONS IN PLACE.
[2021-03-07 19:00] VITALS: BP 148/86
--- NOTE | 2021-03-08 06:45 | NUR ---
ASSUMED PT CARE AT 1930. ASSESSMENT COMPLETED CHARTED. UNABLE TO MAKE NEEDS KNOWN. PT TRIED CRAWLING OUT OF BED AT 1999 WANTING TO GET "CORDS SORTED OUT OF THE WAY". DISTRACTED PT WITH FOOTBALL GAME THEN PT WAS WANTING TO GET A RIDE HOME. PT REDIRECTED MUTLIPLE TIMES DURING THE SHIFT. NO C/O PAIN OR DISCOMFORT. PT HAD LESS OUTPUT THIS SHIFT, URINATED TWICE IN 12 HOURS. BLADDER SCANNED AFTER SECOND URINATION AND FOUND 475 RESIDUAL STILL IN BLADDER. NOTIFIED DR WITH NO RESPONSE YET. [id number] COMPLETED CHARTED. WILL CONTINUE TO MONITOR.
[2021-03-08 07:09] VITALS: BP 160/96
[2021-03-08 08:10] LABS: URINE BILIRUBIN NEGATIVE (Negative); URINE BLOOD 1+ (Negative); URINE CLARITY CLEAR; URINE COLOR YELLOW; URINE GLUCOSE-RANDOM NEGATIVE (Negative); URINE KETONES NEGATIVE (Negative); URINE LEUKOCYTES-REFLEX NEGATIVE (Negative); URINE NITRITE-REFLEX NEGATIVE (Negative); URINE PROTEIN 2+ (Negative); URINE UROBILINOGEN 0.2 E.U./dl (0.2-1.0)
[2021-03-08 08:21] LABS: BACTERIA-REFLEX 1-9 Few /HPF (None Seen); CASTS None Seen /LPF (None Seen); CRYSTALS None Seen /LPF (None Seen); SQUAMOUS 0-3 Few /LPF (0-3); URINE RBC 0-2 Rare /HPF (0-2); URINE WBC-REFLEX 0-5 Rare /HPF (0-5)
--- NOTE | 2021-03-08 17:11 | NUR ---
PT UP WITH NATALIE LIFT. INCREASED CONFUSION. BECOMES ARGUMENTIVE AT TIMES. ORIENTED TO SELF AND TIME. STRAIGHT CATH THIS AM YEILDED 600 ML. UA SENT. SEE RESULTS. HAD 1 SMALL AMOUNT OF INCONTINENCE THIS AFTERNOON. THAT IS THE ONLY TIME THAT HE HAS URINATED. BLADDER SCAN THIS AM READ 17ML. BLADDER SCAN AT [address] COOLEY NOTIFIED. ORDER TO PLACE RAMIREZ CATHETER IF BLADDER SCAN IS 500ML OR GREATER. DRESSINGS TO BLE C/D/I. MOM GIVEN FOR CONSTIPATION. PT HAD 2 STOOLS. HERE TODAY TO VISIT. CALL LIGHT IN REACH. FALL PRECAUTIONS IN PLACE.
[2021-03-08 20:00] VITALS: BP 118/88
--- NOTE | 2021-03-09 05:44 | NUR ---
ASSUMED CARES AT 1920. ALERT AND ORIENTED X 2-3. PLEASANT. NOT CONFUSED TONIGHT. CONTACT ISOLATION FOR MRSA. BLE DRESSINGS INTACT. HAD URINARY INCONTINECE ONLY ONCE OVERNIGHT WHICH IS UNUSUAL FOR PT. BLADDER SCANS AT 2400 WERE 200 CC AND 0500 WAS 320 CC. ORDER IS TO PLACE RAMIREZ IF RETAINS >500 CC. DID USE BEDPAN FOR BM. ZINC OINT APPLIED TO EXCORIATED GROIN AND BOTTOM. SLEPT MOST OF THE NIGHT. CALL LIGHT IN REACH AND BED ALARM ON.
[2021-03-09 07:30] VITALS: BP 132/92
--- NOTE | 2021-03-09 14:05 | NUR ---
WOUND NURSE: PATIENT SEEN FOR FOLLOW UP ASSESSMENT AND DRESSING CHANGE TO BLE WOUNDS. INSIGNIFICANT CHANGE IN WOUND CHARACTERISTICS COMPARED TO LAST ASSESSMENT. MULTIPLE CIRCIFORM LESIONS IN LARGE CLUSTERS ON BOTH LOWER LEGS. WOUNDS ARE SHALLOW AND CONTAIN RED, NONGRANULATING TISSUE IN THE WOUND BEDS. OBTAINED C&S FROM EACH LEG, DRESSINGS WERE CHANGED PRESCRIBED. PATIENT MAY BE GETTING DISCHARGED TOMORROW, SET UP APPT NEXT WEEK ON 03/20 AT 10:[address] Kalpesh MOSELEY, PATIENT INFORMED AND STATES HE UNDERSTANDS.
--- NOTE | 2021-03-09 17:08 | NUR ---
ALERT AND ORIENTED BUT GETS FORGETFUL AND CONFUSED AT TIMES. UP WITH 2 ASSIST, AND NATALIE LIFT. MEDICATION APPLIED TO HEALING RASH ON BACK OF UPPER LEGS AND BUTTOCK. PATIENT INCONTINENT X2. POST VOID RESIDUAL 342ML. WILL CONTINUE TO MONITOR. WOUND DRESSINGS ON LOWER LEGS CHANGED BY WOUND NURSE TODAY. DENIES PAIN. REPOSITIONED AT LEAST EVERY [address]
--- NOTE | 2021-03-09 18:53 | NUR ---
REMAINS ON CONTACT ISOLATION FOR MRSA.
[2021-03-09 20:00] VITALS: BP 137/99
--- NOTE | 2021-03-10 05:05 | NUR ---
ASSUMED CARES AT 1920. ALERT AND ORIENTED X 2. FORGETFUL AND CONFUSED CAUSING PT TO BE ARGUMENTATIVE AT TIMES. PT BLADDER SCANNED Q 4 HRS AND HAD RESIDUAL AMOUNTS OF 300-400 CC EACH TIME. PT VOIDED 100 CC ONCE AND WAS INCONTINENT ONCE. SLEPT OFF AND ON. CALL LIGHT IN REACH AND BED ALARM ON.
[2021-03-10 07:43] VITALS: BP 142/96
--- NOTE | 2021-03-10 17:33 | NUR ---
PT WORKED WITH THERAPIES. UP WITH NATALIE LIFT. BLADDER SCANS CHARTED. DID NOT STRAIGHT CATH WHEN BLADDER SCAN READ 523 PT WAS ABLE TO URINATE IN THE URINAL 200ML. PT INCONTINENT OF URINE X1. VOIDS PER URINAL WHEN URINAL IS PUT IN PLACE. PT VERY CONFUSED. REPEATEDLY STATES THAT HE HIS WAITING FOR HIS NATALIE LIFT TO BE DELIVERED HERE. EXPLAINED TO PT THAT THE NATALIE IS TO BE DELIVERED TO HIS HOME. PT BECOMES ARGUMENTIVE AT TIMES. ATTEMPTS TO GET OUT OF BED. BED ALARM SET FOR SAFETY. CALL LIGHT IN REACH. FALL PRECAUTIONS IN PLACE.
[2021-03-10 19:00] VITALS: BP 146/90
[2021-03-10 19:22] VITALS: BP 142/96
[2021-03-11 05:05] LABS: HEMATOCRIT 33.5 % (42.0-52.0); HEMOGLOBIN 10.7 gm/dL (14.0-18.0); MCH 29.3 pg (26.0-34.0); MCHC 32.1 g/dL (28.0-37.0); MCV 91.2 fL (80.0-100.0); MPV 6.8 fl. (7.2-11.1); RBC 3.67 mil/uL (4.50-6.00); RDW-CV 19.9 % (10.5-14.5); WBC 5.5 thou/uL (4.0-11.0)
[2021-03-11 05:14] LABS: CALCIUM 8.5 mg/dL (8.5-10.1); CREATININE 1.1 mg/dL (0.6-1.3); POTASSIUM 3.2 mmol/L (3.5-5.1)
[2021-03-11 07:46] VITALS: BP 137/93
[2021-03-11 08:47] VITALS: BP 142/96
[2021-03-11 08:49] VITALS: BP 142/96
[2021-03-11] MEDS ORDERED: METOPROLOL SUCC25 M1 PO (11:26)
[2021-03-11] MEDS ORDERED: TYLENOL325 M1 PO (11:26)
[2021-03-11] MEDS ORDERED: COZAAR 50 MG TA50 M1 PO (11:26)
[2021-03-11] MEDS ORDERED: NEXIUM40 MG PO (11:26)
[2021-03-11] MEDS ORDERED: ATORVASTATIN CA20 MG PO (11:26)
[2021-03-11] MEDS ORDERED: FLOMAX0.4 MG PO (11:26)
[2021-03-11] MEDS ORDERED: TRAMADOL 50 MG50 MG PO (11:26)
[2021-03-11] MEDS ORDERED: IRON325 M1 PO (11:26)
[2021-03-11] MEDS ORDERED: PREDNISONE 20 M20 MG PO (11:26)
[2021-03-11] MEDS ORDERED: OXYBUTYNIN 5 MG5 M2 PO (11:26)
[2021-03-11] MEDS ORDERED: MELATONIN10 M3 PO (11:27)
[2021-03-11] MEDS ORDERED: PROSCAR 5MG TABL5 M1 PO (11:27)
--- NOTE | 2021-03-11 15:45 | NUR ---
WOUND CENTER SEEN FOR FOLLOW UP WOUND ASSESSMENT AND COMPRESSION WRAP DRESSING CHANGE TO BILATERAL LOWER EXTREITY. WOUNDS CONTINUE CIRCUMFRENTIAL WITH NO CHANGE IN MEASUREMENTS. DRESSING CHANGE TOLERATED WELL. VOICES NO NEEDS AT THIS TIME.
--- NOTE | 2021-03-11 16:33 | NUR ---
PT IS UP WITH GAIT BELT AND LIFT. PT DID COMPLETE ALL THERAPIES TODAY. PT HAS NOT BEEN VOIDING BLADDER SCAN SHOWED 461 , RAMIREZ CATHETER 14 FR COUDE PLACED AT 11:45AM . WOUND TEAM CHANGED DRESSING TO BI-LAT LOWER LEGS. PT HAD SKIN TEAR TO LT FOREARM DRESSING IS DRY AND CLEAN. PT POTASSIUM WAS 3.2 TWO DOSES OF 40MEQ WAS GIVEN AT 10:00 AM AND 14:30. PT IS DO TO DC TO HOME TODAY AT 17:30. PT IS RESTING WITH CALL LIGHT IN REACH AND FALL PRECAUTIONS IN PLACE.
--- NOTE | 2021-03-11 17:39 | NUR ---
TEAM CONFRENCE MEETING HELD TODAY. PLAN FOR THE PT TO D/C HOME WITH HH. [facility] DELIVERED HOSPITAL BED AND NATALIE LIFT. [facility] ACCEPTED PT AND WILL CONTACT THE PATIENT'S SPOUSE TO ARRANGE A TIME TO VISIT. UROLOGY CARE CAONTATED AND WILL CONTACT THE PT'S SPOUSE TO ARRANGE AN APPOINTMENT. CM WILL REMAIN AVAILABLE TO ASSIST AND FOLLOW NEEDED [facility] PHONE: [phone] FAX: [phone] UROLOGY CARE PHONE: [phone] FAX: [phone]
--- NOTE | 2021-03-11 18:09 | NUR ---
DISCHARGE PROCESS COMPLETED. DISCHARGE PACKET SENT WITH PATIENT AT DISCHARGE. PT DC'D HOME VIA AMBULANCE.
== END 2021-03-11 18:10 | disposition home health service (06) | DRG 91 ==
LOC: M.REH 12:17
PROVIDERS: Internal Medicine; ADMIT Physical Medicine & Rehabilitation; ATTEND Physical Medicine & Rehabilitation
DX: G92 Toxic encephalopathy (principal); J69.0 Pneumonitis due to inhalation of food and vomit; R53.2 Functional quadriplegia; I50.33 Acute on chronic diastolic (congestive) heart failure; E87.0 Hyperosmolality and hypernatremia; I13.0 Hypertensive heart and chronic kidney disease with heart failure and stage 1 through stage 4 chronic kidney disease, or unspecified chronic kidney disease; L97.929 Non-pressure chronic ulcer of unspecified part of left lower leg with unspecified severity; L97.919 Non-pressure chronic ulcer of unspecified part of right lower leg with unspecified severity; K56.41 Fecal impaction; D50.9 Iron deficiency anemia, unspecified; N40.0 Benign prostatic hyperplasia without lower urinary tract symptoms; I48.91 Unspecified atrial fibrillation; E87.6 Hypokalemia; M06.9 Rheumatoid arthritis, unspecified; E66.9 Obesity, unspecified; M12.88 Other specific arthropathies, not elsewhere classified, other specified site; I87.2 Venous insufficiency (chronic) (peripheral); R00.1 Bradycardia, unspecified; D47.3 Essential (hemorrhagic) thrombocythemia; N18.30 Chronic kidney disease, stage 3 unspecified; B95.62 Methicillin resistant Staphylococcus aureus infection as the cause of diseases classified elsewhere; Z68.27 Body mass index [BMI] 27.0-27.9, adult; Z79.52 Long term (current) use of systemic steroids; Z85.46 Personal history of malignant neoplasm of prostate

== ENCOUNTER → 2021-03-20 | Outpatient (CLI) | payer MEDICARE ==
[~2021-03-20] MED LIST changes: +ATORVASTATIN CA20 MG PO
== END ==
LOC: M.WC 10:00
PROVIDERS: ATTEND Family Medicine
DX: I87.333 Chronic venous hypertension (idiopathic) with ulcer and inflammation of bilateral lower extremity (principal); L97.822 Non-pressure chronic ulcer of other part of left lower leg with fat layer exposed; L97.812 Non-pressure chronic ulcer of other part of right lower leg with fat layer exposed; L03.115 Cellulitis of right lower limb; L03.116 Cellulitis of left lower limb; I89.0 Lymphedema, not elsewhere classified; J45.909 Unspecified asthma, uncomplicated; H26.9 Unspecified cataract; M06.9 Rheumatoid arthritis, unspecified; I48.91 Unspecified atrial fibrillation; Z87.01 Personal history of pneumonia (recurrent); Z98.890 Other specified postprocedural states; Z79.899 Other long term (current) drug therapy

== ENCOUNTER → 2021-04-03 | Outpatient (CLI) | payer MEDICARE | LOC: M.WC 03-27 10:30 | PROVIDERS: ATTEND Family Medicine | DX: I87.333 Chronic venous hypertension (idiopathic) with ulcer and inflammation of bilateral lower extremity (principal); L97.822 Non-pressure chronic ulcer of other part of left lower leg with fat layer exposed; L97.812 Non-pressure chronic ulcer of other part of right lower leg with fat layer exposed; L03.115 Cellulitis of right lower limb; L03.116 Cellulitis of left lower limb; I89.0 Lymphedema, not elsewhere classified; J45.909 Unspecified asthma, uncomplicated; H26.9 Unspecified cataract; I48.91 Unspecified atrial fibrillation; M06.9 Rheumatoid arthritis, unspecified; Z87.01 Personal history of pneumonia (recurrent) ==

== ENCOUNTER → 2021-04-20 | Outpatient (CLI) | payer MEDICARE | LOC: M.WC 09:51 | PROVIDERS: ATTEND Surgery | DX: I87.333 Chronic venous hypertension (idiopathic) with ulcer and inflammation of bilateral lower extremity (principal); L97.822 Non-pressure chronic ulcer of other part of left lower leg with fat layer exposed; L97.812 Non-pressure chronic ulcer of other part of right lower leg with fat layer exposed; L03.115 Cellulitis of right lower limb; L03.116 Cellulitis of left lower limb; I89.0 Lymphedema, not elsewhere classified; J45.909 Unspecified asthma, uncomplicated; H26.9 Unspecified cataract; I48.91 Unspecified atrial fibrillation; M06.9 Rheumatoid arthritis, unspecified; Z87.01 Personal history of pneumonia (recurrent) ==

== ENCOUNTER 2021-05-08 12:59 | Emergency (ER) | payer MEDICARE ==
[~2021-05-08] VITALS: Ht 175.3 cm; Wt 97.5 kg
[2021-05-08 13:37] LABS: HEMATOCRIT 35.1 % (42.0-52.0); HEMOGLOBIN 11.5 gm/dL (14.0-18.0); MCH 29.7 pg (26.0-34.0); MCHC 32.7 g/dL (28.0-37.0); MCV 90.9 fL (80.0-100.0); MPV 6.1 fl. (7.2-11.1); NUCLEATED RBCS 0 /100WBC; PLATELET COUNT* 211 thou/uL (150-400); RBC 3.86 mil/uL (4.50-6.00); RDW-CV 18.9 % (10.5-14.5)
[2021-05-08 13:47] LABS: CALCIUM 8.3 mg/dL (8.5-10.1); CREATININE 0.8 mg/dL (0.6-1.3); POTASSIUM 3.2 mmol/L (3.5-5.1)
[2021-05-08 13:51] LABS: ALBUMIN 1.8 g/dL (3.4-5.0); TOTAL BILIRUBIN 0.5 mg/dL (<0.1-1.0); TOTAL PROTEIN 6.2 g/dL (6.4-8.2)
[2021-05-08 14:06] LABS: ABSOLUTE LYMPHOCYTES 0.9 thou/uL (0.8-5.3); ABSOLUTE MONOCYTES 0.1 thou/uL (0.0-1.2); ATYPICAL LYMPHS 1 %; PLATELET ESTIMATE ADEQUATE
[2021-05-08 14:29] LABS: URINE BILIRUBIN NEGATIVE (Negative); URINE BLOOD 2+ (Negative); URINE COLOR YELLOW; URINE GLUCOSE-RANDOM NEGATIVE (Negative); URINE KETONES NEGATIVE (Negative); URINE PROTEIN 2+ (Negative); URINE UROBILINOGEN 0.2 E.U./dl (0.2-1.0)
[2021-05-08 14:30] LABS: URINE CLARITY CLOUDY; URINE LEUKOCYTES-REFLEX 2+ (Negative); URINE NITRITE-REFLEX POSITIVE (Negative)
[2021-05-08 14:35] LABS: SQUAMOUS 0-3 Few /LPF (0-3); URINE RBC 3-10 Few /HPF (0-2); URINE WBC-REFLEX >25 Many /HPF (0-5)
[2021-05-08 14:36] LABS: BACTERIA-REFLEX >30 Many /HPF (None Seen); CASTS None Seen /LPF (None Seen); CRYSTALS None Seen /LPF (None Seen)
[2021-05-08] MEDS ORDERED: CEPHALEXIN500 MG PO (15:18)
[2021-05-08 15:52] VITALS: BP 150/93
--- NOTE | 2021-05-08 17:07 | EKG ---
[place] [address] ELECTROCARDIOGRAM REPORT Name: CATALINA ARCHIBALD Room: [facility]#: [id number] Admission: 05/08/21 Attend Phys: Discharge: 05/08/21 Date of : 47 Date of Service: 05/08/21 1314 Report #: [id number] THIS REPORT FOR: //name// [facility] ED Test Date: 2021-05-08 Test Time: 13:14:58 Pat Name: CATALINA ARCHIBALD Department: Room: Gender: Dumper: [place] : 1945 Requested By: Roseann Covarrubias Order Number: [id number] MD: Casa Magdaleno Measurements Intervals [place] Rate: 103 P: [place]: QRS: 6 QRSD: 85 T: 153 QT: 361 QTc: 473 Interpretive Statements Atrial fibrillation Ventricular premature complex Nonspecific T abnormalities, lateral leads Compared to ECG 02/10/2021 03:55:18 Prolonged QT interval no longer present T-wave abnormality still present Electronically Signed On 05-08-2021 17:07:16 CDT by Casa Magdaleno [email or web address] <ELECTRONICALLY SIGNED> By: Casa Magdaleno MD, FAC 05/08/21 1707 1314 1314 Casa Magdaleno MD, [facility] /EPI
== END 2021-05-08 15:55 | disposition home or self-care (01) ==
LOC: M.ERS 12:59
PROVIDERS: Physician Assistant
DX: N39.0 Urinary tract infection, site not specified (principal); I12.9 Hypertensive chronic kidney disease with stage 1 through stage 4 chronic kidney disease, or unspecified chronic kidney disease; N18.9 Chronic kidney disease, unspecified

== ENCOUNTER → 2021-05-18 | Outpatient (CLI) | payer MEDICARE ==
[~2021-05-18] MED LIST changes: +CEPHALEXIN500 MG PO
== END ==
LOC: M.WC 05-04 10:30
PROVIDERS: ATTEND Surgery
DX: I87.333 Chronic venous hypertension (idiopathic) with ulcer and inflammation of bilateral lower extremity (principal); L97.822 Non-pressure chronic ulcer of other part of left lower leg with fat layer exposed; L97.812 Non-pressure chronic ulcer of other part of right lower leg with fat layer exposed; L03.115 Cellulitis of right lower limb; L03.116 Cellulitis of left lower limb; I89.0 Lymphedema, not elsewhere classified; J45.909 Unspecified asthma, uncomplicated; H26.9 Unspecified cataract; I48.91 Unspecified atrial fibrillation; M06.9 Rheumatoid arthritis, unspecified; Z87.01 Personal history of pneumonia (recurrent)

== ENCOUNTER → 2021-06-08 | Outpatient (CLI) | payer MEDICARE | LOC: M.WC 09:30 | PROVIDERS: ATTEND Surgery | DX: I87.333 Chronic venous hypertension (idiopathic) with ulcer and inflammation of bilateral lower extremity (principal); L97.822 Non-pressure chronic ulcer of other part of left lower leg with fat layer exposed; L97.812 Non-pressure chronic ulcer of other part of right lower leg with fat layer exposed; L03.115 Cellulitis of right lower limb; L03.116 Cellulitis of left lower limb; I89.0 Lymphedema, not elsewhere classified; J45.909 Unspecified asthma, uncomplicated; H26.9 Unspecified cataract; I48.91 Unspecified atrial fibrillation; M06.9 Rheumatoid arthritis, unspecified; Z87.01 Personal history of pneumonia (recurrent) ==

== ENCOUNTER 2021-09-15 23:09 | Inpatient (IN) | payer MEDICARE ==
[~2021-09-15] VITALS: Ht 175.3 cm; Wt 81.3 kg
[2021-09-15 23:10] VITALS: BP 136/89
[2021-09-15 23:29] LABS: URINE BLOOD TRACE (Negative); URINE CLARITY CLEAR; URINE COLOR YELLOW; URINE GLUCOSE-RANDOM NEGATIVE (Negative); URINE KETONES TRACE (Negative); URINE NITRITE-REFLEX NEGATIVE (Negative); URINE PROTEIN NEGATIVE (Negative); URINE SPECIFIC GRAVITY 1.025 (1.005-1.030); URINE UROBILINOGEN 0.2 E.U./dl (0.2-1.0)
[2021-09-15 23:34] LABS: ICTOTEST (BILI CONFIRMATORY) Negative (Negative); URINE BILIRUBIN 1+ (Negative); URINE LEUKOCYTES-REFLEX 2+ (Negative)
[2021-09-15 23:36] LABS: CASTS None Seen /LPF (None Seen); CRYSTALS None Seen /LPF (None Seen); MUCUS 0-3 Light strn/LPF (None Seen); SQUAMOUS 4-10 Moderate /LPF (0-3); URINE RBC 0-2 Rare /HPF (0-2)
[2021-09-15 23:52] LABS: BE 4.2 mmol/L (-2 to +3); PCO2 38.1 mmHg (35.0-45.0); PO2 87.2 mmHg (75.0-100.0)
[2021-09-15 23:52] LABS: HEMOGLOBIN 15.3 gm/dL (14.0-18.0); MCH 31.5 pg (26.0-34.0); MCHC 33.3 g/dL (28.0-37.0); MCV 94.6 fL (80.0-100.0); MPV 6.6 fl. (7.2-11.1); NUCLEATED RBCS 0 /100WBC; PLATELET COUNT* 203 thou/uL (150-400); RBC 4.86 mil/uL (4.50-6.00); RDW-CV 17.6 % (10.5-14.5); WBC 7.7 thou/uL (4.0-11.0)
[2021-09-15 23:56] LABS: CALCIUM 8.4 mg/dL (8.5-10.1); CREATININE 0.8 mg/dL (0.6-1.3)
[2021-09-16] VITALS (11 sets, daily range): BP systolic 76–118; BP diastolic 53–66
[2021-09-16 00:01] LABS: MAGNESIUM 1.7 mg/dL (1.8-2.4); TOTAL BILIRUBIN 0.7 mg/dL (<0.1-1.0); TOTAL PROTEIN 5.7 g/dL (6.4-8.2)
[2021-09-16 00:07] LABS: POTASSIUM 2.8 mmol/L (3.5-5.1)
[2021-09-16 03:12] LABS: ABSOLUTE EOSINOPHILS 0.1 thou/uL (0.0-0.7); ABSOLUTE LYMPHOCYTES 0.5 thou/uL (0.8-5.3); ABSOLUTE MONOCYTES 0.4 thou/uL (0.0-1.2); ABSOLUTE NEUTROPHILS 6.7 thou/uL (1.6-8.1)
[2021-09-16 03:13] LABS: PLATELET ESTIMATE ADEQUATE
[2021-09-16 03:14] LABS: ANISOCYTOSIS 1+
--- NOTE | 2021-09-16 09:15 | EKG ---
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: [place] : [id number] Requested By: Michaela Phelan Order Number: [id number] MD: Casa Magdaleno Measurements Intervals [place] Rate: 164 P: [place]: QRS: 38 QRSD: 86 T: 201 QT: 285 QTc: 471 Interpretive Statements Atrial fibrillation with rapid V-rate Paired ventricular premature complexes Probable LVH with secondary repol abnrm Compared to ECG 05/08/2021 13:14:58 rate has increased Electronically Signed On 09-16-2021 9:02:19 CARBIDE [employer]OL [employer]KER by Casa Magdaleno [email or web address] <ELECTRONICALLY SIGNED> By: Casa Magdaleno MD, [facility] 09/16/21901 12 12 Casa Magdaleno MD, [facility] /EPI
--- NOTE | 2021-09-16 17:12 | CON ---
[address] [address] CONSULTATION Name: CATALINA ARCHIBALD Room: [address] [place] .R.#: [id number] Admission: 09/16/21 Attend Phys: Yue Perez MD Discharge: Date of : 47 Report #: [id number] THIS REPORT FOR: cc: Rajiv Guadarrama Adam J DO Blick, David R. MD [facility] ~ DATE OF CONSULTATION: 09/16/2021 CARDIOLOGY CONSULTATION HISTORY OF PRESENT ILLNESS: The patient is a 76-year-old white male who I was asked to see in the hospital today after he was noted to be in atrial fibrillation. The patient is currently drowsy. He barely opens his eyes to voice. He does not follow commands. There are no family members available. The patient was last here at [facility] last January. He was sent to alf facility. He was brought back to the Emergency Room last night by ambulance. His noted the patient had altered mental status, was weak, could not walk. He felt warm. There is no history of chest pain, shortness of breath or syncope. She notes he was normally awake and alert. There was no vomiting. The patient was seen in the Emergency Room and noted to be in atrial fibrillation. Cardiology consultation was requested. PAST MEDICAL HISTORY: Significant for prostate cancer, decubitus ulcers, ankle fracture, hyperlipidemia, high blood pressure. MEDICATIONS: On admission included Lipitor, Flomax, metoprolol, losartan, oxybutynin. ALLERGIES: He has no known drug allergies. SOCIAL HISTORY: He is . There is no recent alcohol or tobacco use. REVIEW OF SYSTEMS: Could not be obtained. The patient was evaluated by Cardiology last summarized in the hospital and he had a nuclear stress test that showed evidence of ischemia. He also had a history of multifocal atrial tachycardia, but developed bradycardia on beta blockers. He has a history of rheumatoid arthritis. PHYSICAL EXAMINATION: GENERAL: Revealed an elderly, frail-appearing male, lying in bed with his eyes closed. VITAL SIGNS: He had a blood pressure of 100/60, pulse is 100, he had a temperature of 101. HEENT: He was anicteric. Conjunctivae pink. Mucous membranes appear dry. NECK: [place] [address] CONSULTATION Name: CATALINA ARCHIBALD Room: [address]#: [id number] Admission: 09/16/21 Attend Phys: Yue Perez MD Discharge: Date of : 47 Report #: [id number] CHEST: Clear to auscultation. HEART: Irregular, tachycardia. No murmur. ABDOMEN: Soft. EXTREMITIES: Had no pitting edema. Dorsalis pedis pulse 1+ bilaterally. He had venous stasis ulcers on both shins. His ECG on admission last night showed atrial fibrillation with rapid ventricular response rate, nonspecific ST and T-wave changes. The patient had echocardiogram done a year ago here at [facility] that showed ejection fraction of 60%. The patient had a cardiac catheterization after his abnormal stress test last January by Dr. Gibbs performed from the right femoral artery. Results showed no ventriculogram was performed. 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 Mild disease of the LAD. It was recommended he be treated medically. His exact maximal stenosis of the LAD was 60% distally and there was no disease of the circumflex artery. His chest x-ray last night showed right upper lobe infiltrate, some scarring and he had a CT scan of the head that showed small vessel changes, no acute abnormality. LABORATORY WORK: Last night, potassium was only 2.8, creatinine 0.8, albumin was only 2.0. High sensitivity troponin was 59. TSH last summer was 0.4. His hemoglobin 15.3. IMPRESSION AND RECOMMENDATIONS: 1. Pneumonia. 2. Atrial fibrillation. 3. Hyperlipidemia. The patient is on a statin drug. 4. Hypertension. The patient is on beta-liliana and ARB. 5. Possible dementia. 6. History of prostate cancer. <ELECTRONICALLY SIGNED> By: Casa Magdaleno MD, [facility] 09/16/21 1712 1119 [email or web address] Magdaleno MD, FAC /nt
[2021-09-16 22:12] LABS: BE 1.1 mmol/L (-2 to +3); PO2 77.4 mmHg (75.0-100.0); pH 7.478 (7.340-7.450)
[2021-09-16 22:23] LABS: CALCIUM 8.2 mg/dL (8.5-10.1); CREATININE 1.5 mg/dL (0.6-1.3); MAGNESIUM 1.8 mg/dL (1.8-2.4)
[2021-09-16 22:25] LABS: POTASSIUM 4.1 mmol/L (3.5-5.1)
[2021-09-17] VITALS (20 sets, daily range): BP systolic 72–135; BP diastolic 40–69
[2021-09-17 07:23] LABS: ALBUMIN 2.2 g/dL (3.4-5.0); CALCIUM 7.9 mg/dL (8.5-10.1); CREATININE 1.7 mg/dL (0.6-1.3); POTASSIUM 3.8 mmol/L (3.5-5.1); TOTAL BILIRUBIN 1.2 mg/dL (<0.1-1.0); TOTAL PROTEIN 5.1 g/dL (6.4-8.2)
--- NOTE | 2021-09-17 23:23 | OP ---
[address] [address] OPERATIVE REPORT Name: CATALINA ARCHIBALD Room: [address] IN [facility]#: [id number] Admission: 09/16/21 Attend Phys: Yue Perez MD Discharge: Date of : 47 Report #: [id number] THIS REPORT FOR: cc: Rajiv Guadarrama Adam J DO Harper, Charles B. III DO ~ DATE OF SURGERY: 09/17/2021 PREOPERATIVE DIAGNOSIS: Perforated viscus. POSTOPERATIVE DIAGNOSIS: Perforated stercoral ulcer of the sigmoid colon and 4-quadrant feculent peritonitis. SURGEON: Estiven Fowler MD. ENGINE LATHE SET UP OPERATOR: Dr. Phoenix Eduardo, PGY-1. SECOND ENGINE LATHE SET UP OPERATOR: Casa Squires, MS3. OPERATION PERFORMED: Exploratory laparotomy, sigmoid colon resection, end colostomy and wound VAC placement. INDICATIONS: The patient is a 76-year-old male, for which we are consulted for finding of free air on CT. He was found to be acutely ill, febrile and hypotensive. He was unresponsive verbally, so informed consent was obtained from his . She was informed of the risks and benefits of exploratory laparotomy as well as of nonoperative management of his perforation. She elected to proceed with surgery. TECHNIQUE: After informed consent was obtained, the patient was brought to the operating room and placed in supine position. SCDs were not used due to chronic wounds on the patient's bilateral lower extremities. A Parisi catheter was previously placed. Anesthesia placed an arterial line. General anesthesia was administered with an ET tube. The patient was prepped and draped in the usual sterile fashion. A surgical pause was held to confirm proper patient and procedure. An upper midline incision was made with a 10 blade, approximately 20 cm in length. Dissection was carried through subcutaneous fat using cautery until the fascia was identified. Fascia was elevated with 2 Kochers and scored using cautery. Fascia was completely opened for the length of the incision. Peritoneum was bluntly entered. We immediately had effluent of dark black foul smelling feculent material. A pool sucker was inserted into the abdomen and this was suctioned. The peritoneum was opened for the full length of the incision. We immediately found complete abdominal contamination with dark black stool. As we began exploring for the site of perforation, we encountered multiple large stool balls that were free within the abdomen. Directly under our incision was the transverse colon. It was [place] [address] OPERATIVE REPORT Name: CATALINA ARCHIBALD Tacho Room: [address]#: [id number] Admission: 09/16/21 Attend Phys: Yue Perez MD Discharge: Date of : 47 Report #: [id number] perforation as all of the abdomen was stained with the black stool, so we irrigated the abdomen with several liters of warm saline and began a systematic exploration of the abdomen. The small bowel was run, though there was some adhesed loops with fibrinous exudate and feculent staining. There was no evidence of perforation in the small bowel. The cecum was inspected. The appendix was normal. The cecum was normal. The ascending colon was normal. The hepatic flexure was normal. Throughout the transverse colon were multiple palpable stool balls. The splenic flexure appeared normal. The descending colon appeared normal. Upon inspection of the sigmoid colon, we did find a wide mouthed 4 cm perforation of the sigmoid colon consistent with stercoral perforation. There was no diverticular disease. There was no surrounding inflammation. It was strictly a wide open perforation of the sigmoid. Distal and proximal to this was healthy, well perfused, pink sigmoid colon that was nice and soft, so we made a window distal to the site of perforation in the sigmoid by scoring the peritoneum of the mesentery and using gentle finger palpation to make a window through the mesentery. A 55 mm blue load and cutting PAULINA stapler was used to transect the sigmoid colon. We then took down the white line of Toldt from a distal to proximal fashion until we were most of the way up the ascending colon. LigaSure Impact device was then used to take down the mesocolon until we were past the site of perforation. Once we were well past the perforation, a 60 mm PAULINA stapler was used to transect. The colon specimen was then completely free and handed off. We then made our site for end colostomy formation by elevating the skin with an Allis clamp and using the cut current on the Bovie to create a circular skin incision. The subcutaneous fat was culminated until we reached the fascia. At this point, the fat was transected and handed off. The anterior rectus fascia was scored in a cruciate manner. The rectus fibers were divided bluntly. The posterior rectus sheath and peritoneum were entered using cautery while protecting the viscera manually. The ostomy tract was dilated to accommodate 2 fingers. At this point, we grasped the descending colon and exteriorized it through the ostomy site. We then proceeded to thoroughly irrigate the abdomen once more. A KLAI drain was placed in the right lower quadrant externally and this was placed into the pelvis. The omentum was draped over the viscera. The OG tube was palpated within the stomach. We then closed the fascia in a small bites fashion using running continuous 2-0 PDS from the top and the bottom with a 2 cm overlap of our suture lines. Because of gross contamination with stool of our subcutaneous fat and skin, we elected not to close the skin and to place a black foam wound VAC, this was placed. We then transected the staple line using cut current on the Bovie. The ostomy was digitized and was patent well past the fascia. We then matured our ostomy first by getting 4 points of fixation in a Nadege fashion. We then circumferentially fixed the mucosa to the dermis. This was all performed using 3-0 Vicryl. Once the ostomy was matured, the skin was cleansed and dressed with an ostomy appliance. The patient did require vasopressor support throughout the surgery as well [place] [address] OPERATIVE REPORT Name: CATALINA ARCHIBALD Room: [address]#: [id number] Admission: 09/16/21 Attend Phys: Yue Perez MD Discharge: Date of : 46 Report #: [id number] was left intubated and transferred directly to the ICU for further resuscitation. All counts were correct. <ELECTRONICALLY SIGNED> By: Estiven Fowler III, DO 09/17/21 2323 2144 2215Canjum Fowler III, DO /nt
[2021-09-17 23:44] LABS: BE -5.9 mmol/L (-2 to +3); PCO2 34.9 mmHg (35.0-45.0); pH 7.351 (7.340-7.450)
[2021-09-18] VITALS (66 sets, daily range): BP systolic 83–137; BP diastolic 42–70
[2021-09-18 01:10] LABS: BASOPHILS 0.4 %; EOSINOPHILS 0.3 %; HEMATOCRIT 35.8 % (42.0-52.0); LYMPHOCYTES 12.5 %; MCH 31.8 pg (26.0-34.0); MCHC 33.3 g/dL (28.0-37.0); MCV 95.6 fL (80.0-100.0); MONOCYTES 0.5 %; NUCLEATED RBCS 1 /100WBC; PLATELET COUNT* 148 thou/uL (150-400); POLYS 86.3 %; RBC 3.75 mil/uL (4.50-6.00); RDW-CV 17.9 % (10.5-14.5)
[2021-09-18 01:12] LABS: ABSOLUTE LYMPHOCYTES 0.2 thou/uL (0.8-5.3); ABSOLUTE NEUTROPHILS 1.4 thou/uL (1.6-8.1); HEMOGLOBIN 11.9 gm/dL (14.0-18.0)
[2021-09-18 01:13] LABS: WBC 1.6 thou/uL (4.0-11.0)
[2021-09-18 01:18] LABS: CALCIUM 7.1 mg/dL (8.5-10.1); CREATININE 1.8 mg/dL (0.6-1.3); POTASSIUM 3.4 mmol/L (3.5-5.1)
[2021-09-18 01:21] LABS: APTT 81.9 Seconds (25.0-31.3); INR 1.4
[2021-09-18 01:23] LABS: ALBUMIN 1.9 g/dL (3.4-5.0); TOTAL BILIRUBIN 1.7 mg/dL (<0.1-1.0); TOTAL PROTEIN 4.2 g/dL (6.4-8.2)
[2021-09-18 03:55] LABS: BE -6.7 mmol/L (-2 to +3); PCO2 26.4 mmHg (35.0-45.0); PO2 98.3 mmHg (75.0-100.0)
[2021-09-18 04:35] LABS: APTT 78.7 Seconds (25.0-31.3); INR 1.4; PROTIME 13.9 Seconds (9.20-11.50)
[2021-09-18 04:36] LABS: MAGNESIUM 1.3 mg/dL (1.8-2.4); PHOSPHORUS* 3.5 mg/dL (2.5-4.9)
[2021-09-18 04:49] LABS: ALBUMIN 1.9 g/dL (3.4-5.0); CREATININE 1.8 mg/dL (0.6-1.3); TOTAL BILIRUBIN 1.7 mg/dL (<0.1-1.0); TOTAL PROTEIN 4.2 g/dL (6.4-8.2)
[2021-09-18 04:59] LABS: ABSOLUTE LYMPHOCYTES 0.2 thou/uL (0.8-5.3); ABSOLUTE NEUTROPHILS 1.9 thou/uL (1.6-8.1); BASOPHILS 0.2 %; EOSINOPHILS 0.5 %; HEMATOCRIT 36.5 % (42.0-52.0); HEMOGLOBIN 12.1 gm/dL (14.0-18.0); LYMPHOCYTES 10.5 %; MCH 31.5 pg (26.0-34.0); MCHC 33.1 g/dL (28.0-37.0); MCV 95.1 fL (80.0-100.0); MONOCYTES 0.8 %; MPV 7.3 fl. (7.2-11.1); NUCLEATED RBCS 2 /100WBC; PLATELET COUNT* 138 thou/uL (150-400); RBC 3.84 mil/uL (4.50-6.00); RDW-CV 17.8 % (10.5-14.5); WBC 2.2 thou/uL (4.0-11.0)
--- NOTE | 2021-09-18 12:53 | 2DMMODE ---
[place] [address] 2 D/M-MODE ECHOCARDIOGRAM Name: CATALINA ARCHIBALD [facility]#: [id number] Admission: 09/16/21 Attend Phys: Yue Perez, Discharge: Date of : 47 Date of Service: 09/18/21 1253 Report #: [id number] THIS REPORT FOR: cc: Rajiv Guadarrama Adam J DO Holkins, John M. MD [facility] ~ APPROVED REPORT Study performed: 09/18/2021 10:47:03 EXAM: Limited 2D, Doppler, and color-flow Echocardiogram Patient Location: In-Patient Room #: [facility] Status: routine BSA: 1.97 HR: 88 bpm BP: 100/49 mmHg Rhythm: Atrial Fibrillation Other Information Study Quality: Good Indications Atrial Fibrillation Left Ventricle The left ventricle is normal size. There is normal LV segmental wall motion. There is normal left ventricular wall thickness. The left ventricular systolic function is normal. The left ventricular ejection fraction is within the normal range. LVEF is 60%. This study is not technically sufficient to allow evaluation of the LV diastolic function due to atrial fibrillation. Right Ventricle The right ventricle is normal size. The right ventricular systolic function is normal. Atria The left atrium size is normal. The right atrium size is normal. Aortic Valve Mild aortic valve sclerosis. No [place] [address] 2 D/M-MODE ECHOCARDIOGRAM Name: CATALINA ARCHIBALD Room: [address] IN .R.#: [id number] Admission: 09/16/21 Attend Phys: Yue Perez, Discharge: Date of : 47 Date of Service: 09/18/21 1253 Report #: [id number] Mitral Valve The mitral valve is normal in structure. There is no mitral valve regurgitation noted. Tricuspid Valve The tricuspid valve is normal in structure. Trace tricuspid regurgitation. Pulmonic Valve The pulmonary valve is normal in structure. There is no pulmonic valvular regurgitation. Great Vessels The aortic root is normal in size. IVC is not well visualized. Pericardium There is no pericardial effusion. <Conclusion> The left ventricle is normal size. There is normal left ventricular wall thickness. The left ventricular systolic function is normal. The left ventricular ejection fraction is within the normal range. LVEF is 60%. The right ventricle is normal size. The left atrium size is normal. Mild aortic valve sclerosis. No aortic regurgitation is present. The mitral valve is normal in structure. The tricuspid valve is normal in structure. There is no pericardial effusion. There is normal LV segmental wall motion. <ELECTRONICALLY SIGNED> By: Calos Cline MD, [facility] 09/18/21 1253 1253 1253 Calos Cline MD, [facility] /INF
[2021-09-18 16:20] LABS: CALCIUM 7.2 mg/dL (8.5-10.1); POTASSIUM 3.9 mmol/L (3.5-5.1)
[2021-09-19] VITALS (24 sets, daily range): BP systolic 92–140; BP diastolic 45–67
[2021-09-19 04:48] LABS: ALBUMIN 3.1 g/dL (3.4-5.0); CALCIUM 7.1 mg/dL (8.5-10.1); CREATININE 2.2 mg/dL (0.6-1.3); POTASSIUM 3.5 mmol/L (3.5-5.1); TOTAL BILIRUBIN 2.2 mg/dL (<0.1-1.0); TOTAL PROTEIN 4.8 g/dL (6.4-8.2)
--- NOTE | 2021-09-19 08:54 | CON ---
[address] [address] CONSULTATION Name: CATALINA ARCHIBALD Room: [address] IN [facility]#: [id number] Admission: 09/16/21 Attend Phys: Yue Perez MD Discharge: Date of : 47 Report #: [id number] THIS REPORT FOR: cc: Rajiv Guadarrama Adam J DO Arakelov, Alexandr V. MD ~ DATE OF CONSULTATION: 09/18/2021 REQUESTING PHYSICIAN: Dr. Rodriges. REASON FOR CONSULTATION: Acute kidney injury. HISTORY OF PRESENT ILLNESS: The patient is a 76-year-old gentleman with medical history significant for chronic atrial fibrillation, some debility, history of peripheral artery disease, presents with complaints of not feeling well, not able to eat and drink. He had some abdominal pain, was diagnosed with bowel perforation was taking to operating room and surgery was done on 09/17/2021. He had a perforated ulcer of sigmoid colon and Dr. Fowler performed exploratory laparotomy, sigmoid colon resection and colostomy, and placement of wound VAC. The patient's creatinine increasing, urine output dropping. On admission, creatinine was normal now it is 1.8 and I was consulted. He is becoming somewhat acidotic and was hypotensive post surgery. PAST MEDICAL HISTORY: As mentioned earlier. SOCIAL HISTORY: No known tobacco or alcohol abuse. FAMILY HISTORY: No history of renal disease. PHYSICAL EXAMINATION: GENERAL: Intubated. NECK: Fatty. LUNGS: Decreased air movements. CARDIOVASCULAR: Irregular rate. ABDOMEN: Somewhat tender. EXTREMITIES: Lower extremities, some edema. LABORATORY REPORT: Significant for white count of 2.2, down from 7.7, hemoglobin 12.1. Serum sodium 145, potassium 4.0, chloride 112, carbon dioxide 18, BUN 48, creatinine 1.8. ASSESSMENT: 1. Acute kidney injury due to sepsis with shock under perfusion of the kidneys. 2. Status post perforated bowel, [place] [address] CONSULTATION Name: CATALINA ARCHIBALD Room: [address] IN [facility]#: [id number] Admission: 09/16/21 Attend Phys: Yue Perez MD Discharge: Date of : 47 Report #: [id number] PLAN: Continue with fluids. Change fluids to D5 half NS with 1 amp of bicarbonate. Monitor renal output. Basically, we are going to provide supportive measure and advised the patient to recover from acute tubular necrosis. The patient may require dialysis. <ELECTRONICALLY SIGNED> By: Himanshu Fernando MD 09/19/21 0854 0942 1340Himanshu Fernando MD /nt
[2021-09-19 14:20] LABS: CREATININE 2.3 mg/dL (0.6-1.3); POTASSIUM 3.5 mmol/L (3.5-5.1)
[2021-09-19 16:30] LABS: HEMATOCRIT 23.7 % (42.0-52.0); MCH 31.7 pg (26.0-34.0); MCHC 33.6 g/dL (28.0-37.0); MCV 94.3 fL (80.0-100.0); MPV 7.5 fl. (7.2-11.1); NUCLEATED RBCS 0 /100WBC; RBC 2.51 mil/uL (4.50-6.00); RDW-CV 17.8 % (10.5-14.5); WBC 3.9 thou/uL (4.0-11.0)
[2021-09-19 16:31] LABS: PLATELET COUNT* 62 thou/uL (150-400)
[2021-09-19 16:47] LABS: ALBUMIN 2.5 g/dL (3.4-5.0); CALCIUM 6.6 mg/dL (8.5-10.1); CREATININE 2.4 mg/dL (0.6-1.3); POTASSIUM 3.4 mmol/L (3.5-5.1); TOTAL BILIRUBIN 1.7 mg/dL (<0.1-1.0); TOTAL PROTEIN 4.3 g/dL (6.4-8.2)
[2021-09-19 17:05] LABS: BE -6.9 mmol/L (-2 to +3); PCO2 VENOUS 38.8 mmHg (41.0-51.0); PO2 VENOUS 93.5 mmHg (35.0-45.0)
[2021-09-19 17:32] LABS: ANISOCYTOSIS 2+; PLATELET ESTIMATE ADEQUATE
[2021-09-19 17:33] LABS: BURR CELLS 3+
[2021-09-19 17:34] LABS: ABSOLUTE LYMPHOCYTES 0.2 thou/uL (0.8-5.3); ABSOLUTE NEUTROPHILS 3.6 thou/uL (1.6-8.1)
[2021-09-20] VITALS (31 sets, daily range): BP systolic 92–154; BP diastolic 51–78
[2021-09-20 04:46] LABS: HEMATOCRIT 24.1 % (42.0-52.0); MCH 31.6 pg (26.0-34.0); MCHC 33.2 g/dL (28.0-37.0); MCV 94.9 fL (80.0-100.0); MPV 7.9 fl. (7.2-11.1); RBC 2.54 mil/uL (4.50-6.00); RDW-CV 17.9 % (10.5-14.5); WBC 4.7 thou/uL (4.0-11.0)
[2021-09-20 05:08] LABS: ALBUMIN 2.2 g/dL (3.4-5.0); CALCIUM 6.6 mg/dL (8.5-10.1); CREATININE 2.5 mg/dL (0.6-1.3); POTASSIUM 3.3 mmol/L (3.5-5.1); TOTAL BILIRUBIN 1.3 mg/dL (<0.1-1.0); TOTAL PROTEIN 4.2 g/dL (6.4-8.2)
[2021-09-20 14:01] LABS: INR 1.3; PROTIME 13.5 Seconds (9.20-11.50)
[2021-09-20 15:44] LABS: ABSOLUTE LYMPHOCYTES 0.2 thou/uL (0.8-5.3); ABSOLUTE MONOCYTES 0.1 thou/uL (0.0-1.2); BASOPHILS 0.1 %; EOSINOPHILS 0.2 %; HEMATOCRIT 24.8 % (42.0-52.0); HEMOGLOBIN 8.5 gm/dL (14.0-18.0); LYMPHOCYTES 4.6 %; MCH 32.1 pg (26.0-34.0); MCHC 34.1 g/dL (28.0-37.0); MONOCYTES 2.2 %; MPV 7.9 fl. (7.2-11.1); NUCLEATED RBCS 0 /100WBC; POLYS 92.9 %; RBC 2.64 mil/uL (4.50-6.00); RDW-CV 17.9 % (10.5-14.5); WBC 5.4 thou/uL (4.0-11.0)
[2021-09-20 15:47] LABS: CALCIUM 6.7 mg/dL (8.5-10.1); POTASSIUM 3.5 mmol/L (3.5-5.1)
[2021-09-20 16:03] LABS: PLATELET COUNT* 44 thou/uL (150-400)
[2021-09-21] VITALS (24 sets, daily range): BP systolic 85–124; BP diastolic 49–68
[2021-09-21 04:55] LABS: ALBUMIN 1.8 g/dL (3.4-5.0); CALCIUM 6.6 mg/dL (8.5-10.1); CREATININE 2.1 mg/dL (0.6-1.3); HEMATOCRIT 25.2 % (42.0-52.0); HEMOGLOBIN 8.4 gm/dL (14.0-18.0); MCH 31.8 pg (26.0-34.0); MCHC 33.5 g/dL (28.0-37.0); MCV 94.8 fL (80.0-100.0); MPV 8.1 fl. (7.2-11.1); POTASSIUM 3.5 mmol/L (3.5-5.1); RBC 2.65 mil/uL (4.50-6.00); RDW-CV 17.5 % (10.5-14.5); WBC 6.6 thou/uL (4.0-11.0)
[2021-09-21 10:40] LABS: BE -5.6 mmol/L (-2 to +3); PCO2 34.5 mmHg (35.0-45.0); pH 7.361 (7.340-7.450)
[2021-09-21 10:42] LABS: PO2 130.9 mmHg (75.0-100.0)
[2021-09-21 16:06] LABS: HEPATITIS B SURFACE AG Negative (Negative)
--- NOTE | 2021-09-25 11:22 | PATH ---
[address] [address] PATHOLOGY RPT PROCEDURE Name: JONATHAN ARCHIBALD Tacho Room: [address] IN ..#: [id number] Admission: 09/16/21 Date of : 47 Discharge: 09/22/21 Report #: [id number] Path Case #: [id number] [facility] Accession Number: [id number] . 01 Material submitted: . sigmoid colon - SIGMOID COLON . 01 Clinical history: . EXPLORATORY LAPAROTOMY PERFORATED VISCUS PERFORATED STERCORAL ULCER . 02 Diagnosis: Sigmoid colon: - Segment of benign colon with nonspecific ulceration associated with transmural perforation and acute serositis. - One benign pericolic lymph node. - Benign skin. . (LORIE:mml; 09/22/2021) QL 09/22/2021 [facility] Local . 02 Electronically signed: . Fortunato Flannery MD, Pathologist NPI- [id number] . 01 Gross description: . The specimen is received in formalin, labeled "Jonathan Archibald, sigmoid colon". Received is an unoriented, segment of large bowel, with 2 stapled ends, measuring 7.5 cm in length, 2.5 cm in diameter. The serosal surface displays an extensive amount of attached adipose tissue, extending up to 8.2 cm. There is a 3.5 x 1.8 cm, full-thickness, perforation, adjacent to the antimesenteric aspect of the bowel, involving the pericolic adipose tissue, with the involved tissue appearing leslie-olvera, and dusky. The perforation is located 1.7 cm from the closest deep margin, and 3.3 cm from the opposing stapled margin. Opening reveals a focally edematous, focally ulcerated, leslie-don to brown, mucosa surrounding the area of perforation. The remaining uninvolved mucosa appears, leslie-pink, and folded. . Also included in the specimen container are 2 leslie-yellow, multilobulated detached portions of presumed pericolic adipose tissue, measuring 7.1 and 5.4 cm, in greatest dimension. . Dissection of all the pericolic adipose tissue yields a single minute candidate lymph node, measuring 0.1 cm in greatest dimension. . Additionally, included in the specimen container is an unoriented, 3.7 [place] [address] PATHOLOGY RPT PROCEDURE Name: JONATHAN ARCHIBALD Room: [address] IN [facility]#: [id number] Admission: 09/16/21 Date of : 47 Discharge: 09/22/21 Report #: [id number] Path Case #: [id number] 3.0 cm, vaguely ovoid, multilobulated, leslie-yellow, piece of fibroadipose tissue, surfaced by a 1.8 x 1.5 cm, discoid shaped, piece of skin. The epidermal surface appears centrally pinched, leslie-pink, hairbearing, and wrinkled. No distinct scars or lesions are grossly identified on the epidermal surface. The subcutaneous tissue is inked green and the specimen is sectioned to reveal a leslie-white and leslie-yellow, fibrofatty, unremarkable cut surface. . Photographs are obtained. Civilian Technician sections are submitted as follows: . 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 02 Pathologist provided ICD-10: K63.3, K65.8 . 02 CPT . 535637 Specimen Comment: A courtesy copy of this report has been sent to [phone], [phone] Specimen Comment: [phone], Specimen Comment: Report sent to , DR NOLAN / DR CARRERA Specimen Comment: A duplicate report has been generated due to demographic updates. Performed at: 01 [facility] [address], [place], [place] [id number] MD Noble Barney MD Phone: [phone] Performed at: 02 [facility] [address] [place] , [place], [place] [id number] MD Fortunato Flannery MD Phone: [phone]
== END 2021-09-22 | DRG 853 ==
LOC: M.ERS 23:09 → M.TBA-ER 09-16 01:10 → M.2W 09-16 01:10 → M.ICU 09-17 14:41
PROVIDERS: Internal Medicine; Internal Medicine Nephrology; Personal Emergency Response Attendant; Student in an Organized Health Care Education/Training Program; Surgery; ADMIT Internal Medicine; ATTEND Internal Medicine
DX: A41.9 Sepsis, unspecified organism (principal); J96.01 Acute respiratory failure with hypoxia; G93.41 Metabolic encephalopathy; J18.9 Pneumonia, unspecified organism; R65.21 Severe sepsis with septic shock; K65.9 Peritonitis, unspecified; N17.0 Acute kidney failure with tubular necrosis; K55.069 Acute infarction of intestine, part and extent unspecified; K63.1 Perforation of intestine (nontraumatic); N30.00 Acute cystitis without hematuria; E46 Unspecified protein-calorie malnutrition; I48.20 Chronic atrial fibrillation, unspecified; D69.6 Thrombocytopenia, unspecified; E11.649 Type 2 diabetes mellitus with hypoglycemia without coma; Z20.822 Contact with and (suspected) exposure to COVID-19; N18.9 Chronic kidney disease, unspecified; R53.81 Other malaise; E87.6 Hypokalemia; E78.5 Hyperlipidemia, unspecified; N40.0 Benign prostatic hyperplasia without lower urinary tract symptoms; F03.90 Unspecified dementia, unspecified severity, without behavioral disturbance, psychotic disturbance, mood disturbance, and anxiety; I87.2 Venous insufficiency (chronic) (peripheral); I25.10 Atherosclerotic heart disease of native coronary artery without angina pectoris; R34 Anuria and oliguria; Z96.0 Presence of urogenital implants; I12.9 Hypertensive chronic kidney disease with stage 1 through stage 4 chronic kidney disease, or unspecified chronic kidney disease; D64.9 Anemia, unspecified; M06.9 Rheumatoid arthritis, unspecified; Z85.46 Personal history of malignant neoplasm of prostate; Z82.49 Family history of ischemic heart disease and other diseases of the circulatory system; Z68.26 Body mass index [BMI] 26.0-26.9, adult; Z79.899 Other long term (current) drug therapy